=== PATIENT | male | born 1960 | race Caucasian/White ===

== ENCOUNTER 2017-02-20 15:04 | Inpatient (IN) | payer OTHER ==
[~2017-02-20] VITALS: Ht 185.4 cm; Wt 91.2 kg
--- NOTE | 2017-02-20 00:30 | NUR ---
Continue to monitor patient, and blood pressure with no improvement. Patient remains asymptomatic alert and awake with no further complaints of pain, earlier medicated pt with small dose of dilaudid 0.5mg IVP for left shoulder pain 08/14 and rec'd 25% albumin 100ml IV , Vancomycin 1GM and Meropenem IVP with BP sustaining no higher than 79/40. Called [facility] and spoke with Dr. Harper. Orders rec'd and carried out. Bolus of NS 500ml if no improvement with blood pressure transfer pt to ICU.
[2017-02-20] MEDS ORDERED: RIFA550T PO (15:23)
[2017-02-20] MEDS ORDERED: LACT10SO7 PO (15:23)
[2017-02-20] MEDS ORDERED: FLUT1DIS28 IH (15:23)
[2017-02-20] MEDS ORDERED: SPIR100T3 PO (15:23)
--- NOTE | 2017-02-20 15:51 | NUR ---
dr boston at the bedside for eval and exam.
[2017-02-20] MEDS ORDERED: IV NORMAL SALINE 500 ML BAG IV ONE (16:00)
[2017-02-20 16:20] LABS: BASOPHILS % (AUTO) 0.4 % (0.0-2.0); EOSINOPHILS # (AUTO) 0.4 K/uL (0.0-0.7); EOSINOPHILS % (AUTO) 3.2 % (0.0-7.0); HEMATOCRIT 30.1 % (40-50); HEMOGLOBIN 10.3 G/DL (14.0-18.0); LYMPHOCYTES # (AUTO) 0.6 K/UL (0.8-4.8); LYMPHOCYTES % (AUTO) 5.2 % (20.5-51.5); MEAN CORPUSCULAR HGB CONC 34 g/dL (32.0-37.0); MEAN CORPUSCULAR VOLUME 91.1 FL (82.0-92.0); MONOCYTES % (AUTO) 8.8 % (0.0-11.0); NEUTROPHILS # (AUTO) 9.5 K/UL (1.8-8.9); NEUTROPHILS % (AUTO) 82.4 % (38.5-71.5); PLATELET COUNT (AUTO) 122 K/UL (150-450); RED BLOOD CELL COUNT(AUTO) 3.31 MIL/UL (4.7-6.1); WHITE BLOOD COUNT (AUTO) 11.5 K/UL (4.0-11.2)
[2017-02-20 16:27] LABS: BILIRUBIN,DIRECT 0.6 mg/dL (0.0-0.2); BILIRUBIN,TOTAL 1.2 mg/dL (0.2-1.0); POTASSIUM 4.3 mmol/L (3.5-5.1); TOTAL PROTEIN, SERUM 5.5 g/dL (6.4-8.2)
[2017-02-20 16:35] LABS: CREATININE 8.4 mg/dL (0.6-1.3)
[2017-02-20 16:49] LABS: BAND % (MANUAL) 6 % (0-10); EOSINOPHILS % (MANUAL) 2 % (0-8); LYMPHOCYTES % (MANUAL) 7 % (20-40); MONOCYTES % (MANUAL) 11 % (2-10); NEUTROPHILS % (MANUAL) 74 % (42-75)
--- NOTE | 2017-02-20 17:02 | NUR ---
MSE COMPLETED, Admit order written , mrsa nares ordered-sent. sbar report to bianca seaman. pt sent to rm [id number] via [employer].
[2017-02-20 17:03] VITALS: BP 104/54
--- NOTE | 2017-02-20 17:30 | NUR ---
57 YEAR OLD MALE ADMITTED TO ROOM 219 FOR ABDOMINAL PAIN AND SOB ASCITES RENAL FAILURE.PT IS AXOX4.CALL LIGHT WITH IN REACH,ORIENT THE PT TO ROOM AND SURROUNDINGS,MD CALLED FOR ADMISSION ORDERS.,
--- NOTE | 2017-02-20 19:00 | NUR ---
Red'd patient from nurse CONSTANTINO Tucker, Alert and Oriented x 4 in no acute distress. At [address] Wade of patient low BP 79/40 hr 115 tachy RR 18 room air saturation 93% and low grade temp. 99.5. Orders rec'd and carried out and patient monitored closely.
[2017-02-20] MEDS ORDERED: HYDROMORPHONE 1 MG/1 ML DISP.SYRIN IV PRN (19:15)
[2017-02-20 20:11] VITALS: BP 79/40
[2017-02-20] MEDS ORDERED: ALBUMIN HUMAN 25% 100 ML IV ONE (20:15)
[2017-02-20] MEDS ORDERED: VANCOMYCIN IV 1 G in PREMIXED 0 EACH IV ONE (20:30)
[2017-02-20] MEDS ORDERED: FLUTICASONE/SALMETEROL 250/50 INHALER IH SCH (21:00)
[2017-02-20] MEDS: IV NS 1000 ML 1,000 ML IV PRN (21:13)
--- NOTE | 2017-02-20 21:23 | NUR ---
PHARMACY CLINICAL NOTES ( VANCOMYCIN DOSING0 S: 57 YO MALE ; ADMITTED FOR SOB AND ABDOMINAL PAIN. ON EMPIRIC TREATMENT WITH MERREM AND VANCOMYCIN. HE IS ON DIALYSIS O: BUN/SCR 54/8.4, WBC 11.5; TEMP 99.5 A/P: PER PROTOCOL WILL ADMINISTER ONE DOSE OF 1000 MG TONIGHT AND WILL DOSE IN THE FUTURE BASE ON PRE-DIALYSIS LEVEL. WILL CONTINUE TO MONITOR
[2017-02-20] MEDS: HYDROMORPHONE 2 MG/1 ML DISP.SYRIN IV PRN (21:26)
[2017-02-20] MEDS: ONDANSETRON 4 MG/2 ML VIAL IV PRN (21:34)
[2017-02-20] MEDS: MEROPENEM 250 MG in IV NORMAL SALINE 50 ML IV SCH (21:55)
[2017-02-21] VITALS (78 sets, daily range): BP systolic 68–127; BP diastolic 32–78
[2017-02-21] MEDS: ACETAMINOPHEN 325 MG TABLET PO PRN ×2 (00:48→12:11)
--- NOTE | 2017-02-21 02:30 | NUR ---
Patient rec'd normal saline 500 ml bolus with no change in SBP , 72/41 on tele monitor with HR 99-100 SPO2 on 2l/min of oxygen 95%, no resp distress noted, prior SBP 73/37 HR 99 and SPO2 91% on room air, placed pt on oxygen nasal cannula, pt noted resting well, alert and awake, stated Im so comfortable , denies any SOB, difficulty breathing , chest pain or any discomfort. Ascites noted abd very distended and semi-firm with active bowel sounds, denies nausea or vomiting at this time. Patient to be transferred to ICU or MAHAMED per Dr. Vicente to stabilize blood pressure.
[2017-02-21] MEDS ORDERED: IV NORMAL SALINE 500 ML IV ONE (03:30)
--- NOTE | 2017-02-21 03:35 | NUR ---
Patient transferred to ICU via bed Accompanied by Charge nurse Elvia, Report given to UNIX CONSULTANT.
--- NOTE | 2017-02-21 04:00 | NUR ---
received patient from the floor c/o low bp for Levophed drip to start . patient aaox4. symptomatic and no signs and symptoms of respiratory distress . abdomen very distended and soft positive for ascites .ESRD on HD .right subclavian Omari catheter hemodialysis access clean dry and intact . as per patient he is anuric.photo taken for right hip ,sacral area skin pressure see photo and right elbow dry scab.call [facility] and oriented patient to icu equipment and set up. no pain verbalized and no active bleeding noted .
[2017-02-21] MEDS ORDERED: NOREPINEPHRINE BITARTRATE 4 MG/4 ML VIAL IV ONE ×2 (05:19→05:20)
[2017-02-21] MEDS: PANTOPRAZOLE SODIUM 40 MG TABLET.DR PO SCH (06:40)
[2017-02-21 06:43] LABS: BILIRUBIN,TOTAL 1.3 mg/dL (0.2-1.0); MAGNESIUM 2.2 mg/dL (1.8-2.4); POTASSIUM 4.3 mmol/L (3.5-5.1); TOTAL PROTEIN, SERUM 4.9 g/dL (6.4-8.2)
[2017-02-21 06:47] LABS: CREATININE 8.4 mg/dL (0.6-1.3)
[2017-02-21 07:00] LABS: BASOPHILS # (AUTO) 0.1 K/uL (0.0-8.0); BASOPHILS % (AUTO) 1.5 % (0.0-2.0); EOSINOPHILS # (AUTO) 0.2 K/uL (0.0-0.7); EOSINOPHILS % (AUTO) 2.8 % (0.0-7.0); HEMATOCRIT 25.5 % (36.7-47.1); HEMOGLOBIN 8.9 g/dL (12.5-16.3); MEAN CORPUSCULAR HEMOGLOBIN 31.6 uug (23.8-33.4); MEAN CORPUSCULAR HGB CONC 35 g/dL (32.5-36.3); MONOCYTES # (AUTO) 1.2 K/uL (2.0-10.0); MONOCYTES % (AUTO) 18.7 % (0.0-11.0); NEUTROPHILS # (AUTO) 3.9 K/uL (1.8-8.9); PLATELET COUNT (AUTO) 89 K/uL (152-348)
[2017-02-21 07:03] LABS: THYROID STIMULATING HORMONE 2.284 mIU/mL (0.358-3.740)
[2017-02-21 07:18] LABS: WHITE BLOOD COUNT (AUTO) 6.4 K/uL (3.6-10.2)
--- NOTE | 2017-02-21 07:30 | NUR ---
RECIEVED PT LYING IN BED, HOB UP AT 35DEGREES. COLOR IS PALE AND JAUNDICED, VERY PLEASANT, ORIENTEDX3. ABDOMEN IS VERY DISTENDED AND PT C/O OF DISCOMFORTS OVER THE TIGHTNESS OF HIS ABDOMEN. BOWEL SOUND IS HYPOACTIVE. NO C/O N/V NOTED.
[2017-02-21] MEDS: IV NS 1000 ML 1,000 ML IV PRN (07:33)
--- NOTE | 2017-02-21 08:30 | NUR ---
PT ON LEVOPHED DRIP AT 10MCG/KG/MIN INFUSING WELL ON HIS LEFT FA G20. SEEN AND EXAMINED BY DR MEJIA WITH NEW MARÍA ELENA. FLORINDA FOR INSERTION OF PICC LINE. CONSENT OBTAINED FROM PT.
[2017-02-21 08:58] LABS: BAND % (MANUAL) 2 % (0-10); BASOPHILS % (MANUAL) 2 % (0-2); EOSINOPHILS % (MANUAL) 1 % (0-8); LYMPHOCYTES % (MANUAL) 15 % (20-40); MONOCYTES % (MANUAL) 12 % (2-10); NEUTROPHILS % (MANUAL) 68 % (42-75)
[2017-02-21] MEDS ORDERED: SPIRONOLACTONE 100 MG TABLET PO SCH (09:00)
[2017-02-21] MEDS ORDERED: EPOETIN ALFA 10,000 UNITS/ML VIAL SQ ONE (09:30)
--- NOTE | 2017-02-21 10:00 | NUR ---
PT IS ANURIC. CHRONIC HEMODIALYSIS, SUBCLAVIAN VAS VCASTH ON RIGHT UPPER CHEST IS CLEAN AND INTACT.
[2017-02-21] MEDS: FLUTICASONE/VILANTEROL 1 EACH BLST.W.DEV INH SCH (10:07)
[2017-02-21] MEDS: LACTULOSE 20 G/30 ML LIQUID UDC PO SCH ×3 (10:07→18:03)
[2017-02-21] MEDS: MEROPENEM 250 MG in IV NORMAL SALINE 50 ML IV SCH ×2 (10:09→21:33)
[2017-02-21] MEDS: RIFAXIMIN 550 MG TABLET PO SCH ×2 (10:09→18:03)
--- NOTE | 2017-02-21 10:30 | NUR ---
PT SBP IS LABILE. INCREASED LEVOPHED DRIP UP TO 12MCG/KG/MIN.
--- NOTE | 2017-02-21 11:00 | NUR ---
PT ALSO SIGNED CONSENT FOR US GUIDED PARACENTHESIS.
--- NOTE | 2017-02-21 11:20 | NUR ---
PICC LINE INSERTED ON THE LEFT UPPER ARM BY PICC LINE NURSE AT THE BEDSIDE.
--- NOTE | 2017-02-21 11:45 | NUR ---
PT WAS MOVED TO CCU 1 FOR HEMODIALYSIS CONVINIENCE ACCESS. FIRST STEP MATTRESS APPLIED FOR SKIN PROTECTION, AND DVT PUMP ON BOTH LEGS ORDERED.
--- NOTE | 2017-02-21 14:00 | NUR ---
HEMODIALYSIS STARTED AT BEDSIDE. PT TOLERATING WELL. ATE LIGHT LUNCH.
--- NOTE | 2017-02-21 15:30 | NUR ---
TOTAL FLUID OUT IS 2LITERS. NO APPARENT DISTRESS NOTED.
--- NOTE | 2017-02-21 16:00 | NUR ---
US GUIDED PARACENTHESIS IN THE ROOM PERFORMED BY DR COTTON, RADIOLOGIST. TOTAL FLUID DRAIN IS 10LITERS. PT TOLERATED GOOD, NO APPARENT DISTRESS NOTED. ONE BOTTLE SENT TO LAB FOR FLUID CULTURE&SENSITIVITY WITH GRAM STAIN ORDER. THE REST OF BOTTLES DISPOSED ON BIOHAZARD TRASH. PT IS SLEEPING AND FEELING SO COLD AND TIRED.
--- NOTE | 2017-02-21 16:32 | NUR ---
PHARMACY CLINICAL NOTES ( VANCOMYCIN DOSING0 S: 57 YO MALE ; ADMITTED FOR SOB AND ABDOMINAL PAIN. ON EMPIRIC TREATMENT WITH MERREM AND VANCOMYCIN. HE IS ON DIALYSIS O: BUN/SCR 56/8.4, WBC 6.4; TEMP 98.4 pre-HD level: 17.1 today am labs A/P: Per protocol, will dose another 1gm vanco tonight after HD (HD not done yet) based on pre-HD level. Will continue to dose per pre-HD level on HD days. Will follow Addendum: 02/21/17 at 1703 by ANIRUDH FELTON ADM HD DONE, DOSING VANCO 1GM AT 1800. WILL FOLLOW Addendum: 02/21/17 at 1707 by ANIRUDH FELTON ADM ERROR, DISREGARD PREVIOUS, WILL DOSE 500MG X 1 VANCO DUE FOR 1900 TODAY. WILL FOLLOW
[2017-02-21] MEDS: HYDROCODONE/APAP 5-325MG TABLET PO PRN (16:38)
[2017-02-21] MEDS: NOREPINEPHRINE BITARTRATE 8 MG in IV DEXTROSE 5% 500 ML IV PRN ×2 (16:38→23:33)
[2017-02-21] MEDS ORDERED: VANCOMYCIN IV 1 G in PREMIXED 0 EACH IV ONE (18:00)
--- NOTE | 2017-02-21 18:30 | NUR ---
EATING DINNER WELL AND INDEPENDENTLY.
[2017-02-21] MEDS ORDERED: VANCOMYCIN IV 500 MG in IV DEXTROSE 5% 100 ML IV ONE (19:00)
--- NOTE | 2017-02-21 19:30 | NUR ---
rounds made patient AAOX4/MAEX4 slow and weak.denies pain when asked .abdomen area still distended but slow .s/p paracentesis no signs and symptom of bleeding. breathing even and unlabored .hob up . Addendum: 02/21/17 at 2139 by ABBI TYSON RN Amended: Links added. Addendum: 02/21/17 at 2140 by ABBI TYSON RN Amended: Links added.
--- NOTE | 2017-02-21 20:00 | NUR ---
received patient on norepinephrine at 18 mcg/min ,to keep sbp >90 mm/hg .continue to monitor vital signs q15 minutes . Addendum: 02/21/17 at 2136 by ABBI TYSON RN Amended: Links added.
--- NOTE | 2017-02-21 22:00 | NUR ---
no new skin breakdown noted sacral area and left hip decubitus with Mepilex dressing clean dry and intact .patient had x1 bowel movement soft moderate in amt pm care done changed soiled linens and gown . z guard applied to sacral area and bilateral groin .patient able to turned and reposition self . Addendum: 02/22/17 at 0124 by ABBI TYSON RN Amended: Links added. Addendum: 02/22/17 at 0126 by ABBI TYSON RN Amended: Links added. Addendum: 02/22/17 at 0203 by ABBI TYSON RN Amended: Links added.
--- NOTE | 2017-02-21 22:30 | NUR ---
patient asked for apple sauce and apple juice able to feed self .hob up ,aspiration precaution observed. Addendum: 02/22/17 at 0126 by ABBI TYSON RN Amended: Links added. Addendum: 02/22/17 at 0203 by ABBI TYSON RN Amended: Links added.
[2017-02-22] VITALS (96 sets, daily range): BP systolic 71–115; BP diastolic 39–72
--- NOTE | 2017-02-22 | NUR ---
no active bleeding noted h/h 8.9/25.5 platelet 89.continue to monitor . Addendum: 02/22/17 at 0203 by ABBI TYSON RN Amended: Links added.
[2017-02-22] MEDS: NOREPINEPHRINE BITARTRATE 8 MG in IV DEXTROSE 5% 500 ML IV PRN ×3 (05:10→18:46)
[2017-02-22 06:07] LABS: BASOPHILS # (AUTO) 0.1 K/uL (0.0-8.0); BASOPHILS % (AUTO) 0.6 % (0.0-2.0); BILIRUBIN,TOTAL 1.1 mg/dL (0.2-1.0); CREATININE 6.7 mg/dL (0.6-1.3); EOSINOPHILS # (AUTO) 0.1 K/uL (0.0-0.7); EOSINOPHILS % (AUTO) 1.1 % (0.0-7.0); HEMATOCRIT 33.2 % (40-50); HEMOGLOBIN 10.9 G/DL (14.0-18.0); LYMPHOCYTES % (AUTO) 8.5 % (20.5-51.5); MAGNESIUM 2.1 mg/dL (1.8-2.4); MEAN CORPUSCULAR HEMOGLOBIN 30.2 UUG (27.0-31.0); MEAN CORPUSCULAR HGB CONC 33 g/dL (32.0-37.0); MEAN CORPUSCULAR VOLUME 91.9 FL (82.0-92.0); MONOCYTES # (AUTO) 1.7 K/UL (0.1-1.30); MONOCYTES % (AUTO) 13.9 % (0.0-11.0); NEUTROPHILS # (AUTO) 9.4 K/UL (1.8-8.9); NEUTROPHILS % (AUTO) 75.9 % (38.5-71.5); PHOSPHOROUS 5.7 mg/dL (2.5-4.9); PLATELET COUNT (AUTO) 93 K/UL (150-450); RED BLOOD CELL COUNT(AUTO) 3.61 MIL/UL (4.7-6.1); TOTAL PROTEIN, SERUM 5.7 g/dL (6.4-8.2); WHITE BLOOD COUNT (AUTO) 12.3 K/UL (4.0-11.2)
[2017-02-22] MEDS: PANTOPRAZOLE SODIUM 40 MG TABLET.DR PO SCH (06:36)
--- NOTE | 2017-02-22 07:30 | NUR ---
Pt.in bed A/A/O,watching TV,no s/s of acute distress,denies pain @ time.
[2017-02-22] MEDS: LACTULOSE 20 G/30 ML LIQUID UDC PO SCH ×3 (08:11→17:04)
[2017-02-22] MEDS: RIFAXIMIN 550 MG TABLET PO SCH ×2 (08:11→17:04)
[2017-02-22] MEDS: FLUTICASONE/VILANTEROL 1 EACH BLST.W.DEV INH SCH (08:11)
[2017-02-22] MEDS: MEROPENEM 250 MG in IV NORMAL SALINE 50 ML IV SCH ×2 (08:11→21:05)
[2017-02-22 09:48] LABS: BAND % (MANUAL) 13 % (0-10); BASOPHILS % (MANUAL) 1 % (0-2); LYMPHOCYTES % (MANUAL) 11 % (20-40); MONOCYTES % (MANUAL) 12 % (2-10); NEUTROPHILS % (MANUAL) 63 % (42-75)
--- NOTE | 2017-02-22 11:23 | NUR ---
Pt.sleeping,no s/s of distress.
--- NOTE | 2017-02-22 12:55 | NUR ---
Pt.was seen by .
[2017-02-22] MEDS: HYDROCODONE/APAP 5-325MG TABLET PO PRN (13:37)
--- NOTE | 2017-02-22 14:48 | NUR ---
PHARMACY CLINICAL NOTES ( VANCOMYCIN DOSING0 S: 57 YO MALE ; ADMITTED FOR SOB AND ABDOMINAL PAIN. ON EMPIRIC TREATMENT WITH MERREM AND VANCOMYCIN. HE IS ON DIALYSIS O: BUN/SCR 44/6.7, WBC 6.7; TEMP 99.2 A/P: Per protocol, No Hd today therefore no dose shall be given. Last dose given 02/21 @ 1900. Will follow Hd scheduling for further dosing. Will monitor
[2017-02-22] MEDS ORDERED: Z GUARD REMEDY PASTE 57 GM TUBE TOP PRN (15:00)
[2017-02-22] MEDS: Z GUARD REMEDY PASTE 57 GM TUBE TOP SCH (21:06)
[2017-02-23] VITALS (73 sets, daily range): BP systolic 86–143; BP diastolic 35–81
[2017-02-23] MEDS: NOREPINEPHRINE BITARTRATE 8 MG in IV DEXTROSE 5% 500 ML IV PRN ×3 (00:55→13:57)
[2017-02-23] MEDS: ZOLPIDEM 5 MG TABLET PO PRN ×2 (02:00→22:38)
[2017-02-23 05:52] LABS: BASOPHILS # (AUTO) 0.1 K/uL (0.0-8.0); BASOPHILS % (AUTO) 1.3 % (0.0-2.0); EOSINOPHILS # (AUTO) 0.6 K/uL (0.0-0.7); EOSINOPHILS % (AUTO) 5.7 % (0.0-7.0); HEMATOCRIT 33.7 % (40-50); HEMOGLOBIN 11.2 G/DL (14.0-18.0); LYMPHOCYTES # (AUTO) 1.2 K/UL (0.8-4.8); LYMPHOCYTES % (AUTO) 12.2 % (20.5-51.5); MEAN CORPUSCULAR HEMOGLOBIN 30.6 UUG (27.0-31.0); MEAN CORPUSCULAR HGB CONC 33 g/dL (32.0-37.0); MEAN CORPUSCULAR VOLUME 92.2 FL (82.0-92.0); MONOCYTES # (AUTO) 1.5 K/UL (0.1-1.30); MONOCYTES % (AUTO) 14.9 % (0.0-11.0); NEUTROPHILS # (AUTO) 6.5 K/UL (1.8-8.9); NEUTROPHILS % (AUTO) 65.9 % (38.5-71.5); PLATELET COUNT (AUTO) 117 K/UL (150-450); RED BLOOD CELL COUNT(AUTO) 3.66 MIL/UL (4.7-6.1); WHITE BLOOD COUNT (AUTO) 9.9 K/UL (4.0-11.2)
[2017-02-23] MEDS: IV NORMAL SALINE 250 ML IV PRN (06:10)
[2017-02-23 06:28] LABS: CREATININE 7.3 mg/dL (0.6-1.3); MAGNESIUM 2.1 mg/dL (1.8-2.4); PHOSPHOROUS 5.9 mg/dL (2.5-4.9); POTASSIUM 3.7 mmol/L (3.5-5.1)
[2017-02-23] MEDS: PANTOPRAZOLE SODIUM 40 MG TABLET.DR PO SCH (07:00)
[2017-02-23] MEDS: LACTULOSE 20 G/30 ML LIQUID UDC PO SCH ×3 (08:52→16:00)
--- NOTE | 2017-02-23 08:55 | NUR ---
TIFFANIE gannon held this am. Pt on dialysis and potassium/ammonia levels wnl. Addendum: 02/23/17 at 0922 by BASIL TINAJERO RN Pt with no complaints of constipation and bm wnl.
[2017-02-23] MEDS: FOLIC ACID/VITAMIN B COMP W-C TABLET PO SCH (09:01)
[2017-02-23] MEDS: RIFAXIMIN 550 MG TABLET PO SCH ×2 (09:01→16:10)
[2017-02-23] MEDS: MEROPENEM 250 MG in IV NORMAL SALINE 50 ML IV SCH ×2 (09:02→20:51)
[2017-02-23] MEDS: Z GUARD REMEDY PASTE 57 GM TUBE TOP SCH ×2 (09:02→20:52)
[2017-02-23] MEDS: FLUTICASONE/VILANTEROL 1 EACH BLST.W.DEV INH SCH (09:02)
--- NOTE | 2017-02-23 09:50 | NUR ---
Hemodialysis treatment complete. 1.5L of hemodialysis fluid removed. Pt stable and nad noted. VSS wnl.
[2017-02-23] MEDS: HYDROCODONE/APAP 5-325MG TABLET PO PRN (11:01)
[2017-02-23] MEDS ORDERED: VANCOMYCIN IV 1 G in PREMIXED 0 EACH IV ONE (12:00)
[2017-02-23 12:06] LABS: BAND % (MANUAL) 5 % (0-10); EOSINOPHILS % (MANUAL) 2 % (0-8); LYMPHOCYTES % (MANUAL) 12 % (20-40); METAMYELOCYTES % 1 % (0-1); MONOCYTES % (MANUAL) 14 % (2-10); NEUTROPHILS % (MANUAL) 66 % (42-75)
--- NOTE | 2017-02-23 12:11 | NUR ---
PHARMACY CLINICAL NOTES ( VANCOMYCIN DOSING0 S: Continue vanco for this 57 yo male dialysis patient for Sepsis with fevers, leukocytosis, bandemia, O: BUN/SCR 49/7.3 WBC 9.9; TEMP 98.6 Vanco pre-HD level: 13.9 (with am labs) A/P: Per protocol, HD has been scheduled for today. Since vanco pre-HD level is 13.9 (below 15 mcg/ml) ,as per protocol, will give vanco 1gm IVPB x1 today post HD. Will follow HD scheduling for further dosing. Will monitor
--- NOTE | 2017-02-23 19:04 | NUR ---
End of shift: Pt resting and dozing off in bed with fall precautions and safety measures maintained. nuclear monitoring technician and alarms working properly wnl. IV Levophed infusing as ordered. Pt stable and nad noted.
[2017-02-23] MEDS: HYDROMORPHONE 2 MG/1 ML DISP.SYRIN IV PRN (19:11)
--- NOTE | 2017-02-23 19:30 | NUR ---
Report received. Patient AAO, able to make needs known. On continuous Levophed drip for BP support. Afebrile. Abdomen markedly distended, soft with hypoactive bowel sounds. With mild pain on palpation. Patient encouraged to turn to side. Cooperative. Was medicated with Dilaudid IV for abdominal/inguinal pain at 1911. Assessment completed. Addendum: 02/24/17 at 0029 by MAURICIO MCKEON RN Amended: Links added.
--- NOTE | 2017-02-23 20:00 | NUR ---
Levophed drip titrated down. Continue to monitor BPs closely. Addendum: 02/24/17 at 0031 by MAURICIO MCKEON RN Amended: Links added.
[2017-02-23] MEDS: NOREPINEPHRINE BITARTRATE 16 MG in IV DEXTROSE 5% 500 ML IV PRN (20:46)
--- NOTE | 2017-02-23 20:46 | NUR ---
New bag of Levophed drip hung with Levophed 16 mg in D5 W 500ml. Infusion pump reprogrammed. Patient awake, watching TV. Addendum: 02/24/17 at 0035 by MAURICIO MCKEON RN Amended: Links added.
--- NOTE | 2017-02-23 22:30 | NUR ---
Requesting for Jell-o; ate well without n/v. Also requesting for sleeping pill; Teodora given. Addendum: 02/24/17 at 0038 by MAURICIO MCKEON RN Amended: Links added.
[2017-02-24] VITALS (96 sets, daily range): BP systolic 71–124; BP diastolic 30–76
--- NOTE | 2017-02-24 01:15 | NUR ---
Sat on room air 86-89% while asleep. O2 2 L NC administered. Saturation improved. Addendum: 02/24/17 at 0141 by MAURICIO MCKEON RN Amended: Links added.
--- NOTE | 2017-02-24 04:45 | NUR ---
Patient awake; c/o abdominal pain and R inguinal area pain. Medicated with Dilaudid. Am care rendered. Patient cooperative. BPs monitored closely. Remains on Levophed drip for BP support.
[2017-02-24] MEDS: HYDROMORPHONE 2 MG/1 ML DISP.SYRIN IV PRN ×2 (04:49→11:28)
[2017-02-24 04:56] LABS: BASOPHILS # (AUTO) 0.2 K/uL (0.0-8.0); BASOPHILS % (AUTO) 1.8 % (0.0-2.0); EOSINOPHILS # (AUTO) 0.8 K/uL (0.0-0.7); EOSINOPHILS % (AUTO) 6.9 % (0.0-7.0); HEMATOCRIT 32.3 % (40-50); HEMOGLOBIN 10.6 G/DL (14.0-18.0); LYMPHOCYTES # (AUTO) 1.2 K/UL (0.8-4.8); LYMPHOCYTES % (AUTO) 10.7 % (20.5-51.5); MEAN CORPUSCULAR HEMOGLOBIN 29.9 UUG (27.0-31.0); MEAN CORPUSCULAR HGB CONC 33 g/dL (32.0-37.0); MEAN CORPUSCULAR VOLUME 91.4 FL (82.0-92.0); MONOCYTES # (AUTO) 1.9 K/UL (0.1-1.30); MONOCYTES % (AUTO) 17.2 % (0.0-11.0); NEUTROPHILS # (AUTO) 6.9 K/UL (1.8-8.9); NEUTROPHILS % (AUTO) 63.4 % (38.5-71.5); PLATELET COUNT (AUTO) 84 K/UL (150-450); RED BLOOD CELL COUNT(AUTO) 3.54 MIL/UL (4.7-6.1)
[2017-02-24 05:10] LABS: CREATININE 6.5 mg/dL (0.6-1.3); MAGNESIUM 1.8 mg/dL (1.8-2.4); PHOSPHOROUS 5.3 mg/dL (2.5-4.9); POTASSIUM 3.6 mmol/L (3.5-5.1)
[2017-02-24 05:38] LABS: BAND % (MANUAL) 1 % (0-10); EOSINOPHILS % (MANUAL) 8 % (0-8); LYMPHOCYTES % (MANUAL) 15 % (20-40); MONOCYTES % (MANUAL) 21 % (2-10); NEUTROPHILS % (MANUAL) 55 % (42-75)
--- NOTE | 2017-02-24 06:30 | NUR ---
Sleeping on and off after Dilaudid. Remains on Levophed drip at 12 mcg/min.
[2017-02-24] MEDS: IV NORMAL SALINE 250 ML IV PRN (06:39)
[2017-02-24] MEDS: PANTOPRAZOLE SODIUM 40 MG TABLET.DR PO SCH (06:39)
--- NOTE | 2017-02-24 07:00 | NUR ---
PATIENT IS LAYING IN BED COMFORTABLY. NO S/S OF RESPIRATORY DISTRESS NOTED. TOLERABLE PAIN IS REPORTED DUE TO "INGUINAL HERNIA". CURRENTLY, PT DOES NOT WANT PAIN MEDICATION. PT IS ON 2L NC. ALL SAFETY NEEDS ARE MET. WILL CONTINUE TO MONITOR.
[2017-02-24] MEDS: LACTULOSE 20 G/30 ML LIQUID UDC PO SCH ×4 (08:24→17:12)
[2017-02-24] MEDS: FLUTICASONE/VILANTEROL 1 EACH BLST.W.DEV INH SCH (08:24)
[2017-02-24] MEDS: FOLIC ACID/VITAMIN B COMP W-C TABLET PO SCH (08:24)
[2017-02-24] MEDS: MEROPENEM 250 MG in IV NORMAL SALINE 50 ML IV SCH ×2 (08:24→21:06)
[2017-02-24] MEDS: RIFAXIMIN 550 MG TABLET PO SCH ×2 (08:24→17:12)
[2017-02-24] MEDS: ACETAMINOPHEN 325 MG TABLET PO PRN ×2 (08:27→22:17)
[2017-02-24] MEDS: Z GUARD REMEDY PASTE 57 GM TUBE TOP SCH ×2 (08:50→21:05)
--- NOTE | 2017-02-24 10:46 | NUR ---
DR. AVILA IS HERE TO ASSESS THE PT, PT REPORT IS GIVEN TO THE DR. PER DR. AVILA "PT'S BASE LINE BLOOD PRESSURE IS IN 90'S" "LET'S TRY TO LOWER DOWN LEVOPHED TO 10MCG", ADVISED DR THAT ATTEMPETED TO LOWER DOWN LEVOPHED TO 11, AT WHICH POINT PT'S SBP BECAME IN 70'S. OK PER NEW V/O FROM DR. AVILA GIVE FLORINEF 0.1MG DAILY FIRST DOSE NOW. ORDER NOTED, CARRIED OUT. ADVISED DR ABOUT PT'S CONCERN ABOUT HIS INGUINAL HERNIA, OK PER
--- NOTE | 2017-02-24 10:55 | NUR ---
PER DR. AVILA V/O PUT PT, PTT
--- NOTE | 2017-02-24 11:20 | NUR ---
PER DR. AVILA V/O GIVE THE PT HIS DILAUDID, NOTIFIED OF THE PT'S BP, GIVE DILAUDID DOSE PER DR'S ORDER.
[2017-02-24] MEDS: FLUDROCORTISONE ACETATE 0.1 MG TABLET PO SCH (11:28)
--- NOTE | 2017-02-24 12:45 | NUR ---
PT REMOVED NC TO ETA, REFUSED TO PUT IT BACK ON, EDUCATION PROVIDED Addendum: 02/24/17 at 1625 by KISHORE WYLIE RN PT PUT THE NC IN 30 MIN AFTER EATING HIS LUNCH.
--- NOTE | 2017-02-24 13:37 | NUR ---
PATIENT SAID OK TO TAKE LACTULOSE, ONCE SCANNED AND OPENED PT SAID THAT HE DOESN'T WANT IT RIGHT NOW. WAISTED THE MEDICATION WITH ANOTHER NURSE.
--- NOTE | 2017-02-24 14:38 | NUR ---
PT REFUSING BED BATH, WILL ASK AGAIN, PER PT "I ALREADY HAD ONE TODAY, I'M GOOD". EDUCATION PROVIDED.
--- NOTE | 2017-02-24 15:13 | NUR ---
WOUND CARE NURSE CAME TO ASSESS THE PT, WOUND CARE IS DONE PER PROTOCOL. PT STILL REFUSES BED BATH.
--- NOTE | 2017-02-24 15:22 | NUR ---
WOUND CARE CONSULT: PT PRESENTS WITH SKIN TEAR TO RT ARM AND STAGE 2 ULCER TO LEFT HIP AREA, PRESENT ON ADMISSION. ALL SKIN PROTECTION AND WOUND RECOMMENDATIONS DISCUSSED WITH NURSING STAFF. PT NOTED TO HAVE VERY LARGE ABDOMEN. SACRAL AREA VERY BONY WITH SCARRING AND STAINING OF SKIN. WILL SEE PRN. DENIS IN AGREEMENT WITH PLAN OF CARE. Addendum: 02/24/17 at 1523 by EFE TERRELL RN Amended: Links added.
--- NOTE | 2017-02-24 15:33 | NUR ---
DR AVILA IS AWARE ABOUT THE PT HAS SINUS TACHYCARDIC SINCE AM 100 - 119'S. NO NEW ORDERS FROM DR. AVILA
--- NOTE | 2017-02-24 16:00 | NUR ---
DR KING IS HERE TO PERFORM PARACENTESIS. V/A WNL. PT IS NOTED TO BE SLIGHTLY TACHYCARDIC. PER DR. KING "WILL BE REMOVING A LOT OF FLUID, PATIENT PROBABLY NEEDS ALBUMIN". PAGED DR. AVILA FOR THE ORDER, OK PER DR AVILA
--- NOTE | 2017-02-24 16:30 | NUR ---
PARACENTHESIS IS DONE, 10L OUT. NO S/S OF BLEEDING NOTED, WILL CONTINUE TO MONITOR THE PT.
--- NOTE | 2017-02-24 16:41 | NUR ---
PHARMACY CLINICAL NOTES ( VANCOMYCIN DOSING0 S: Continue vanco for this 57 yo male dialysis patient for Sepsis with fevers, leukocytosis, bandemia, O: BUN/SCR 81/6.5 WBC 11.0; TEMP 98 A/P: Will continue to dose by pre-HD level. Since there is no HD today, no dose will be given today. Will follow HD scheduling for further dosing. Will monitor
[2017-02-24] MEDS ORDERED: ALBUMIN HUMAN 25% 100 ML IV ONE (17:00)
--- NOTE | 2017-02-24 18:03 | NUR ---
CENTRAL LINE DRESSING IS DONE WITH [employer] TECHNIQUE
[2017-02-24] MEDS: NOREPINEPHRINE BITARTRATE 16 MG in IV DEXTROSE 5% 500 ML IV PRN (18:16)
--- NOTE | 2017-02-24 19:00 | NUR ---
PT IS LAYING IN BED COMFORTABLY, PT IS HAVING BM. NO S/S OF RESPIRATORY DISTRESS NOTED. NO S/S OF BLEEDING NOTED. NO PAIN NOTED. IV INTACT/PATENT. PT IS ON 3L NC. ALL SAFETY NEEDS ARE MET. PT REPORT IS GIVEN.
--- NOTE | 2017-02-24 19:30 | NUR ---
Report received. Patient AAO, coughing non productively; O2 3L NC, sat above 94%. With minimal abdominal and inguinal pain during activity such as turning and repositioning. On continuous Levophed drip @ 15 mcg/min to keep SBP above 90. Patient claims he's tired and just want to sleep tonight. Assessment completed. Addendum: 02/24/17 at 2026 by MAURICIO MCKEON RN Amended: Links added.
--- NOTE | 2017-02-24 20:00 | NUR ---
Patient called. Had loose yellow stools. Cleaned; skin care provided. Turning side to side by himself. Addendum: 02/24/17 at 2104 by MAURICIO MCKEON RN Amended: Links added.
--- NOTE | 2017-02-24 20:45 | NUR ---
Patient more congested. Sat low 90's. HR trending higher. HOB elevated above 30 degrees at all times. Patient encouraged to cough up secretions. Yany BRAGA visited. Aware of patient's condition. Patient asking for more blankets. Temp rechecked=99.3. Patient advised appropriately. Addendum: 02/24/17 at 2136 by MAURICIO MCKEON RN Amended: Links added. Addendum: 02/24/17 at 2251 by MAURICIO MCKEON RN Amended: Links added.
--- NOTE | 2017-02-24 21:05 | NUR ---
Patient able to coughed up thick yellow greenish secretions. Specimen obtained.
--- NOTE | 2017-02-24 21:08 | NUR ---
Dose of Levaquin given po. Patient has no swallowing difficulty. Call placed to [facility]. Dr. Chappell chapter relations administrator. Addendum: 02/24/17 at 2251 by MAURICIO MCKEON RN Amended: Links added.
[2017-02-24] MEDS ORDERED: LEVOFLOXACIN 250 MG TABLET PO SCH (21:15)
--- NOTE | 2017-02-24 21:45 | NUR ---
Patient continues to cough up thick yellow greenish secretions. Dr. Chappell informed of patient's condition. Orders received.
[2017-02-24] MEDS ORDERED: LEVALBUTEROL HCL NEB 0.63 MG/3 ML NEBU NEB PRN (22:15)
[2017-02-24] MEDS: PHENYLEPHRINE IV 40 MG in IV DEXTROSE 5% 250 ML IV PRN (22:17)
--- NOTE | 2017-02-24 22:17 | NUR ---
Levophed drip dc'd. Neosynephrine drip started at 100 mcg/min as ordered. BPs monitored closely. Tylenol po given for mild fever and generalized discomfort. Patient repositioned. Addendum: 02/24/17 at 2257 by MAURICIO MCKEON RN Amended: Links added.
[2017-02-24] MEDS ORDERED: PHENYLEPHRINE 10 MG/1 ML VIAL ONE (22:20)
[2017-02-24] MEDS: GUAIFENESIN/DEXTROMETHORPHAN 5 ML UDC PO PRN (22:28)
--- NOTE | 2017-02-24 22:28 | NUR ---
Robitussin DM 10 ml po given for cough.
[2017-02-24] MEDS ORDERED: GUAIFENESIN/DEXTROMETHORPHAN 5 ML UDC ONE (22:43)
--- NOTE | 2017-02-24 23:00 | NUR ---
Neosynephrine drip titrated to keep SBP above 90. See IV spread sheet for rates and dosages.
[2017-02-24] MEDS ORDERED: LEVALBUTEROL HCL 1.25 MG/0.5 ML NEB ONE (23:29)
--- NOTE | 2017-02-24 23:45 | NUR ---
Had another large liquid BM. Patient had doses of Lactulose during the day. Skin care provided.
[2017-02-25] VITALS (93 sets, daily range): BP systolic 58–120; BP diastolic 29–65
--- NOTE | 2017-02-25 00:15 | NUR ---
Patient remains hypotensive; Neosynephrine drip @ 180 mcg/min. Had another large liquid orange red stools. Call placed to [employer]. Spoke to . Informed of patient's condition. Orders received. NS 500 ml bolus hung. Main IVF NS at 75 ml/H started. Addendum: 02/25/17 at 0106 by MAURICIO MCKEON RN Amended: Links added.
[2017-02-25] MEDS: IV NS 1000 ML 1,000 ML IV PRN ×2 (00:22→14:46)
[2017-02-25] MEDS ORDERED: IV NORMAL SALINE 500 ML IV ONE (00:30)
--- NOTE | 2017-02-25 01:00 | NUR ---
BPs in 90's with NS IV bolus.
[2017-02-25] MEDS ORDERED: PHENYLEPHRINE 10 MG/1 ML VIAL ONE ×2 (01:54→03:07)
[2017-02-25] MEDS: PHENYLEPHRINE IV 40 MG in IV DEXTROSE 5% 250 ML IV PRN ×3 (02:22→09:13)
[2017-02-25] MEDS: HYDROMORPHONE 2 MG/1 ML DISP.SYRIN IV PRN ×2 (04:48→20:29)
[2017-02-25 05:01] LABS: BASOPHILS % (AUTO) 0.3 % (0.0-2.0); EOSINOPHILS % (AUTO) 0.3 % (0.0-7.0); HEMATOCRIT 31.4 % (36.7-47.1); HEMOGLOBIN 10.7 g/dL (12.5-16.3); LYMPHOCYTES # (AUTO) 0.5 K/uL (20.0-40.0); LYMPHOCYTES % (AUTO) 4.8 % (20.5-51.5); MEAN CORPUSCULAR HEMOGLOBIN 30.6 uug (23.8-33.4); MEAN CORPUSCULAR HGB CONC 34 g/dL (32.5-36.3); MEAN CORPUSCULAR VOLUME 89.7 fL (73.0-96.2); MONOCYTES # (AUTO) 0.9 K/uL (2.0-10.0); MONOCYTES % (AUTO) 8.2 % (0.0-11.0); NEUTROPHILS % (AUTO) 86.4 % (38.5-71.5); PLATELET COUNT (AUTO) 81 K/uL (152-348); WHITE BLOOD COUNT (AUTO) 10.4 K/uL (3.6-10.2)
[2017-02-25 05:06] LABS: BILIRUBIN,TOTAL 1.2 mg/dL (0.2-1.0); CREATININE 7.2 mg/dL (0.6-1.3); MAGNESIUM 1.9 mg/dL (1.8-2.4); PHOSPHOROUS 5.1 mg/dL (2.5-4.9); POTASSIUM 3.3 mmol/L (3.5-5.1); TOTAL PROTEIN, SERUM 5.1 g/dL (6.4-8.2)
[2017-02-25 06:07] LABS: BAND % (MANUAL) 74 % (0-10); LYMPHOCYTES % (MANUAL) 2 % (20-40); METAMYELOCYTES % 1 % (0-1); MONOCYTES % (MANUAL) 6 % (2-10); NEUTROPHILS % (MANUAL) 15 % (42-75)
--- NOTE | 2017-02-25 06:20 | NUR ---
BPs stabilizing with Neosynephrine drip at 200 mcg/min and 500 ml NS IV bolus. Monitor SR rate 70's- 80's. Abdomen still markedly distended but soft. Had 6 BMs the entire shift; liquid yellow orange stools. Routine skin and wound care done. Medicated with Dilaudid 0.5 mg IV x 1 for generalized discomfort. Addendum: 02/25/17 at 0623 by MAURICIO MCKEON RN Amended: Links added.
[2017-02-25] MEDS: PANTOPRAZOLE SODIUM 40 MG TABLET.DR PO SCH (06:30)
[2017-02-25] MEDS: LACTULOSE 20 G/30 ML LIQUID UDC PO SCH ×4 (08:16→16:29)
[2017-02-25] MEDS: FOLIC ACID/VITAMIN B COMP W-C TABLET PO SCH (08:16)
[2017-02-25] MEDS: FLUDROCORTISONE ACETATE 0.1 MG TABLET PO SCH (08:17)
[2017-02-25] MEDS: FLUTICASONE/VILANTEROL 1 EACH BLST.W.DEV INH SCH (08:17)
[2017-02-25] MEDS: RIFAXIMIN 550 MG TABLET PO SCH ×2 (08:18→16:28)
[2017-02-25] MEDS: Z GUARD REMEDY PASTE 57 GM TUBE TOP SCH ×2 (08:19→20:30)
[2017-02-25] MEDS: MEROPENEM 250 MG in IV NORMAL SALINE 50 ML IV SCH ×2 (08:20→20:29)
--- NOTE | 2017-02-25 08:45 | NUR ---
Dr. Badillo in to examine patient; full report given no orders received.
--- NOTE | 2017-02-25 11:50 | NUR ---
Rink Rat in the unit. 1200 hemodialysis in progress.
[2017-02-25] MEDS: PHENYLEPHRINE IV 80 MG in IV DEXTROSE 5% 250 ML IV PRN ×3 (12:08→22:04)
--- NOTE | 2017-02-25 12:32 | NUR ---
PHARMACY CLINICAL NOTES ( VANCOMYCIN DOSING0 S: Continue vanco for this 57 yo male dialysis patient for Sepsis, PNA O: BUN/SCR 49/7.2 WBC 10.4; TEMP 97.6 Vanco pre-HD level: 18.4 (with am labs) A/P: Per protocol, HD has been scheduled for today. Since vanco pre-HD level is 18.4 (between 15-20 mcg/ml) ,as per protocol, will give vanco 500mg IVPB x1 today post HD. Will follow HD scheduling for further dosing. Will monitor
[2017-02-25] MEDS: ALBUMIN HUMAN 25% 100 ML IV PRN ×2 (12:39→12:41)
--- NOTE | 2017-02-25 13:00 | NUR ---
Hemodialysis in progress patient tolerating poorly a total of 2 doses of Albumin given see eMAR. and phenilephrine titrated as needed by procedure. See vital signs sheet.
--- NOTE | 2017-02-25 14:07 | NUR ---
Hemodialysis finished and reports of 2,000 out total obtained.
[2017-02-25] MEDS ORDERED: VANCOMYCIN IV 500 MG in IV DEXTROSE 5% 100 ML IV ONE (16:00)
--- NOTE | 2017-02-25 19:01 | NUR ---
Dell ID in the unit to examine patient; report given.
--- NOTE | 2017-02-25 19:30 | NUR ---
Report received. Patient called; up on the bedpan. Had a small liquid soft yellow stools. Skin care provided. Patient cooperative. On continuous Neosynephrine drip for BP support. BPs monitored closely. Addendum: 02/25/17 at 2224 by MAURICIO MCKEON RN Amended: Links added.
--- NOTE | 2017-02-25 20:15 | NUR ---
Dinner served; ate fairly well without n/v. Abdomen still markedly distended; soft with bowel sounds. Medicated with Dilaudid IV for pain. Addendum: 02/25/17 at 2232 by MAURICIO MCKEON RN Amended: Links added.
[2017-02-26] VITALS (94 sets, daily range): BP systolic 51–128; BP diastolic 23–61
[2017-02-26] MEDS: PHENYLEPHRINE IV 80 MG in IV DEXTROSE 5% 250 ML IV PRN ×5 (03:04→21:34)
--- NOTE | 2017-02-26 03:30 | NUR ---
BPs in the 's. Neosynephrine drip increased to 280 mcg/min. No neuro changes. Addendum: 02/26/17 at 0711 by MAURICIO MCKEON RN Amended: Links added.
[2017-02-26] MEDS: IV NS 1000 ML 1,000 ML IV PRN ×2 (04:39→17:54)
[2017-02-26 04:57] LABS: BASOPHILS # (AUTO) 0.3 K/uL (0.0-8.0); BASOPHILS % (AUTO) 3.6 % (0.0-2.0); EOSINOPHILS # (AUTO) 0.7 K/uL (0.0-0.7); EOSINOPHILS % (AUTO) 7.1 % (0.0-7.0); HEMATOCRIT 32.5 % (40-50); HEMOGLOBIN 10.7 G/DL (14.0-18.0); LYMPHOCYTES # (AUTO) 1.6 K/UL (0.8-4.8); LYMPHOCYTES % (AUTO) 16.1 % (20.5-51.5); MEAN CORPUSCULAR HEMOGLOBIN 29.7 UUG (27.0-31.0); MEAN CORPUSCULAR HGB CONC 33 g/dL (32.0-37.0); MEAN CORPUSCULAR VOLUME 89.9 FL (82.0-92.0); MONOCYTES # (AUTO) 2.3 K/UL (0.1-1.30); MONOCYTES % (AUTO) 23.9 % (0.0-11.0); NEUTROPHILS # (AUTO) 4.8 K/UL (1.8-8.9); NEUTROPHILS % (AUTO) 49.3 % (38.5-71.5); PLATELET COUNT (AUTO) 100 K/UL (150-450); RED BLOOD CELL COUNT(AUTO) 3.61 MIL/UL (4.7-6.1); WHITE BLOOD COUNT (AUTO) 9.7 K/UL (4.0-11.2)
[2017-02-26 04:59] LABS: MAGNESIUM 1.8 mg/dL (1.8-2.4); PHOSPHOROUS 4.7 mg/dL (2.5-4.9); POTASSIUM 3.1 mmol/L (3.5-5.1)
[2017-02-26] MEDS: HYDROMORPHONE 2 MG/1 ML DISP.SYRIN IV PRN ×4 (05:30→21:19)
[2017-02-26 05:39] LABS: BAND % (MANUAL) 42 % (0-10); EOSINOPHILS % (MANUAL) 7 % (0-8); LYMPHOCYTES % (MANUAL) 9 % (20-40); METAMYELOCYTES % 6 % (0-1); MONOCYTES % (MANUAL) 6 % (2-10); MYELOCYTES % 6 % (0-0); NEUTROPHILS % (MANUAL) 18 % (42-75); PROMYELOCYTES % 3 %
[2017-02-26] MEDS: PANTOPRAZOLE SODIUM 40 MG TABLET.DR PO SCH (06:25)
--- NOTE | 2017-02-26 06:30 | NUR ---
AAO. Remains on Neosynephrine drip at 280 mcg/min; BPs still labile. Had 1 BM the entire shift. Addendum: 02/26/17 at 0720 by MAURICIO MCKEON RN Amended: Links added.
[2017-02-26] MEDS: LACTULOSE 20 G/30 ML LIQUID UDC PO SCH ×4 (08:17→16:31)
[2017-02-26] MEDS: FOLIC ACID/VITAMIN B COMP W-C TABLET PO SCH (08:17)
[2017-02-26] MEDS: FLUDROCORTISONE ACETATE 0.1 MG TABLET PO SCH (08:18)
[2017-02-26] MEDS: FLUTICASONE/VILANTEROL 1 EACH BLST.W.DEV INH SCH (08:18)
[2017-02-26] MEDS: RIFAXIMIN 550 MG TABLET PO SCH ×2 (08:19→16:33)
[2017-02-26] MEDS: MEROPENEM 250 MG in IV NORMAL SALINE 50 ML IV SCH ×2 (08:19→21:10)
[2017-02-26] MEDS: Z GUARD REMEDY PASTE 57 GM TUBE TOP SCH ×2 (08:20→21:20)
--- NOTE | 2017-02-26 11:48 | NUR ---
aviation mechanic in the unit, Patient refusing procedure stating "I'm feeling too dizzy I'll skip today".
[2017-02-26] MEDS: NOREPINEPHRINE BITARTRATE 16 MG in IV DEXTROSE 5% 500 ML IV PRN (12:20)
--- NOTE | 2017-02-26 14:11 | NUR ---
PHARMACY CLINICAL NOTES ( VANCOMYCIN DOSING S: Continue vanco for this 57 yo male dialysis patient for Sepsis, PNA O: BUN/SCR 44/6 WBC 9.7; TEMP 98.5 A/P: HD was scheduled for riana however, pt refused HD today therefore did not receive HD. No dose for today, last dose was given yesterday at 1600: vanco 500mg IVPB x1. Will follow HD scheduling for further dosing. Will monitor
--- NOTE | 2017-02-26 19:13 | NUR ---
Dr. Wade in to examine patient report given no orders received.
--- NOTE | 2017-02-26 19:16 | NUR ---
Dr. Wade informed of low blood pressure and neosynephrine been max out. orders to start levophed received.
--- NOTE | 2017-02-26 19:20 | NUR ---
Discussed US order with MARIA LUZ Painting. Patient unstable at this time to transfer to radiology. OK to postponed US until patient is more stable
--- NOTE | 2017-02-26 20:00 | NUR ---
A/Ox4. Patient is resting in bed. NSR on monitor. Labile BP. Neosynephrine at 280 mcg/min to SUMIT PICC line, will titrate as appropriate. IVF as ordered. 3L O2 via NC with SpO2 and RR WNL. Non-productive cough. Noted severe abdominal distention. Patient c/o abdominal pain, however tolerable at this time. Will administer PRN medications as appropriate. SBAR report received from Olamide Flor RN. Will continue plan of care.
[2017-02-26] MEDS: LACTOSE-FREE FOOD 237 ML LIQUID PO SCH (20:04)
[2017-02-26] MEDS ORDERED: LEVOFLOXACIN 250 MG TABLET PO SCH (21:00)
[2017-02-26] MEDS: GUAIFENESIN/DEXTROMETHORPHAN 5 ML UDC PO PRN (23:43)
[2017-02-27] VITALS (72 sets, daily range): BP systolic 62–122; BP diastolic 30–72
[2017-02-27] MEDS: PHENYLEPHRINE IV 80 MG in IV DEXTROSE 5% 250 ML IV PRN ×5 (02:01→20:36)
[2017-02-27] MEDS: HYDROMORPHONE 2 MG/1 ML DISP.SYRIN IV PRN ×2 (04:31→19:49)
[2017-02-27 04:54] LABS: BASOPHILS # (AUTO) 0.1 K/uL (0.0-8.0); BASOPHILS % (AUTO) 1.1 % (0.0-2.0); EOSINOPHILS # (AUTO) 0.9 K/uL (0.0-0.7); EOSINOPHILS % (AUTO) 7.2 % (0.0-7.0); HEMOGLOBIN 11.2 G/DL (14.0-18.0); LYMPHOCYTES # (AUTO) 1.3 K/UL (0.8-4.8); LYMPHOCYTES % (AUTO) 10.7 % (20.5-51.5); MEAN CORPUSCULAR HEMOGLOBIN 29.6 UUG (27.0-31.0); MEAN CORPUSCULAR HGB CONC 33 g/dL (32.0-37.0); MEAN CORPUSCULAR VOLUME 90.2 FL (82.0-92.0); MONOCYTES # (AUTO) 2.1 K/UL (0.1-1.30); MONOCYTES % (AUTO) 17.4 % (0.0-11.0); NEUTROPHILS # (AUTO) 7.5 K/UL (1.8-8.9); NEUTROPHILS % (AUTO) 63.6 % (38.5-71.5); PLATELET COUNT (AUTO) 147 K/UL (150-450); RED BLOOD CELL COUNT(AUTO) 3.78 MIL/UL (4.7-6.1); WHITE BLOOD COUNT (AUTO) 11.9 K/UL (4.0-11.2)
[2017-02-27 05:15] LABS: BILIRUBIN,TOTAL 1.4 mg/dL (0.2-1.0); CREATININE 6.8 mg/dL (0.6-1.3); MAGNESIUM 1.9 mg/dL (1.8-2.4); PHOSPHOROUS 5.4 mg/dL (2.5-4.9); TOTAL PROTEIN, SERUM 5.2 g/dL (6.4-8.2)
[2017-02-27 05:37] LABS: BAND % (MANUAL) 15 % (0-10); EOSINOPHILS % (MANUAL) 2 % (0-8); LYMPHOCYTES % (MANUAL) 17 % (20-40); MONOCYTES % (MANUAL) 13 % (2-10); NEUTROPHILS % (MANUAL) 53 % (42-75)
[2017-02-27] MEDS ORDERED: IV NORMAL SALINE 250 ML BAG IV PRN (06:15)
[2017-02-27] MEDS: PANTOPRAZOLE SODIUM 40 MG TABLET.DR PO SCH (06:37)
[2017-02-27] MEDS: IV NS 1000 ML 1,000 ML IV PRN ×2 (06:37→20:35)
[2017-02-27] MEDS: LACTULOSE 20 G/30 ML LIQUID UDC PO SCH ×3 (08:19→17:00)
[2017-02-27] MEDS: FLUDROCORTISONE ACETATE 0.1 MG TABLET PO SCH (08:19)
[2017-02-27] MEDS: RIFAXIMIN 550 MG TABLET PO SCH ×2 (08:19→17:01)
[2017-02-27] MEDS: Z GUARD REMEDY PASTE 57 GM TUBE TOP SCH ×2 (08:20→20:34)
[2017-02-27] MEDS: FLUTICASONE/VILANTEROL 1 EACH BLST.W.DEV INH SCH (08:22)
[2017-02-27] MEDS: MEROPENEM 250 MG in IV NORMAL SALINE 50 ML IV SCH ×2 (08:22→20:34)
[2017-02-27] MEDS: LACTOSE-FREE FOOD 237 ML LIQUID PO SCH ×2 (08:23→17:00)
[2017-02-27] MEDS: FOLIC ACID/VITAMIN B COMP W-C TABLET PO SCH (08:26)
--- NOTE | 2017-02-27 08:28 | NUR ---
US tech here to see pt for US scrotum.
[2017-02-27] MEDS: ONDANSETRON 4 MG/2 ML VIAL IV PRN ×2 (08:45→13:55)
--- NOTE | 2017-02-27 08:57 | NUR ---
US tech here to see pt for 2D Echocardiogram.
--- NOTE | 2017-02-27 10:10 | NUR ---
financial systems administrator here to see pt for dialysis treatment.
[2017-02-27] MEDS: ALBUMIN HUMAN 25% 100 ML IV PRN ×2 (10:40→11:30)
[2017-02-27] MEDS: GUAIFENESIN/DEXTROMETHORPHAN 5 ML UDC PO PRN ×2 (11:36→19:49)
[2017-02-27] MEDS: NOREPINEPHRINE BITARTRATE 16 MG in IV DEXTROSE 5% 500 ML IV PRN (12:01)
--- NOTE | 2017-02-27 12:24 | NUR ---
Hemodialysis complete. 1.2L of hemodialysis fluid removed. Pt stable and tolerated dialysis treatment well.
[2017-02-27] MEDS ORDERED: POTASSIUM CHLORIDE 20 MEQ TAB.PRT.SR PO ONE (12:45)
--- NOTE | 2017-02-27 15:15 | NUR ---
Dr. Hollingsworth and STUFFER Farrah (Infectious) here to see pt. Full report given. No new orders received.
--- NOTE | 2017-02-27 16:01 | NUR ---
PHARMACY CLINICAL NOTES ( VANCOMYCIN DOSING S: Continue vanco for this 57 yo male dialysis patient for Sepsis, PNA O: BUN/SCR 53/6.8 WBC 11.9 TEMP 98.6 Vancomycin pre HD level on am labs 18.4 A/P: He was dialyzed today. Since Vancomycin pre HD level was 18.4 , will give 500mg Vancomycin IV today and continue dosing per pre HD level. Will follow daily.
[2017-02-27] MEDS ORDERED: VANCOMYCIN IV 500 MG in IV DEXTROSE 5% 100 ML IV ONE (17:00)
--- NOTE | 2017-02-27 17:15 | NUR ---
Dr. Wade here to see pt. Full report given. No new orders received.
--- NOTE | 2017-02-27 17:20 | NUR ---
Offered pt dinner tray, but pt refused to eat and reports still feeling a little nauseated.
[2017-02-27] MEDS: HYDROCODONE/APAP 5-325MG TABLET PO PRN (19:01)
--- NOTE | 2017-02-27 19:30 | NUR ---
received patient on neosynephrine drip at 280 mcg/min to keep sbp >90 mm/hg ,continue to monitor vitals q 15 minutes and to adjust pressors accordingly . Addendum: 02/27/17 at 2023 by ABBI TYSON RN Amended: Links added.
--- NOTE | 2017-02-27 20:19 | NUR ---
patient verbalized on pain scrotal area ,day nurse already gave him Reader but he said his still in pain and wants something for pain given Perry chapman ,continue to monitor levels of pain . Addendum: 02/27/17 at 2026 by ABBI TYSON RN Amended: Links added.
[2017-02-28] VITALS (69 sets, daily range): BP systolic 83–125; BP diastolic 22–64
[2017-02-28] MEDS: PHENYLEPHRINE IV 80 MG in IV DEXTROSE 5% 250 ML IV PRN ×5 (00:56→20:49)
[2017-02-28] MEDS: GUAIFENESIN/DEXTROMETHORPHAN 5 ML UDC PO PRN (03:42)
[2017-02-28] MEDS: HYDROCODONE/APAP 5-325MG TABLET PO PRN (03:43)
--- NOTE | 2017-02-28 04:30 | NUR ---
am care done patient had a total of 3 bowel movement on shift ,soft to liquid brownish in color .am care done and changed soiled linens and gown sacral area and left hip dressing done with hydrogel and cover with Mepilex.z guard to bilateral groin oral care done, hob up called respiratory therapist patient been coughing ,cough medication given . Addendum: 02/28/17 at 0505 by ABBI TYSON RN Amended: Links added. Addendum: 02/28/17 at 0506 by ABBI TYSON RN Amended: Links added. Addendum: 02/28/17 at 0509 by ABBI TYSON RN Amended: Links added.
[2017-02-28 04:53] LABS: BASOPHILS # (AUTO) 0.1 K/uL (0.0-8.0); BASOPHILS % (AUTO) 0.6 % (0.0-2.0); EOSINOPHILS # (AUTO) 0.5 K/uL (0.0-0.7); EOSINOPHILS % (AUTO) 4.1 % (0.0-7.0); HEMOGLOBIN 10.6 G/DL (14.0-18.0); LYMPHOCYTES # (AUTO) 1.7 K/UL (0.8-4.8); LYMPHOCYTES % (AUTO) 13.2 % (20.5-51.5); MEAN CORPUSCULAR HEMOGLOBIN 30.3 UUG (27.0-31.0); MEAN CORPUSCULAR HGB CONC 33 g/dL (32.0-37.0); MEAN CORPUSCULAR VOLUME 91.5 FL (82.0-92.0); MONOCYTES # (AUTO) 2.1 K/UL (0.1-1.30); MONOCYTES % (AUTO) 15.7 % (0.0-11.0); NEUTROPHILS # (AUTO) 8.7 K/UL (1.8-8.9); NEUTROPHILS % (AUTO) 66.4 % (38.5-71.5); PLATELET COUNT (AUTO) 120 K/UL (150-450); WHITE BLOOD COUNT (AUTO) 13.1 K/UL (4.0-11.2)
[2017-02-28 05:02] LABS: BILIRUBIN,TOTAL 2.5 mg/dL (0.2-1.0); CREATININE 6.5 mg/dL (0.6-1.3); MAGNESIUM 1.9 mg/dL (1.8-2.4); PHOSPHOROUS 5.9 mg/dL (2.5-4.9); POTASSIUM 3.3 mmol/L (3.5-5.1); TOTAL PROTEIN, SERUM 5.3 g/dL (6.4-8.2)
[2017-02-28 05:05] LABS: BAND % (MANUAL) 8 % (0-10); LYMPHOCYTES % (MANUAL) 20 % (20-40); MONOCYTES % (MANUAL) 14 % (2-10); NEUTROPHILS % (MANUAL) 54 % (42-75)
[2017-02-28] MEDS: ALBUTEROL SULFATE 1.25 MG/3 ML NEBU NEB PRN ×3 (05:05→23:14)
[2017-02-28 05:06] LABS: EOSINOPHILS % (MANUAL) 4 % (0-8)
[2017-02-28] MEDS: PANTOPRAZOLE SODIUM 40 MG TABLET.DR PO SCH (06:08)
--- NOTE | 2017-02-28 07:39 | NUR ---
poly packer and heat sealer here to see pt for dialysis treatment, but pt refused. Pt stated that he is okay with paracentesis procedure for today, but not dialysis.
[2017-02-28] MEDS: LACTULOSE 20 G/30 ML LIQUID UDC PO SCH ×3 (07:42→16:39)
[2017-02-28] MEDS: LACTOSE-FREE FOOD 237 ML LIQUID PO SCH ×2 (07:42→16:39)
[2017-02-28] MEDS: FLUDROCORTISONE ACETATE 0.1 MG TABLET PO SCH ×2 (07:44→08:20)
[2017-02-28] MEDS: FLUTICASONE/VILANTEROL 1 EACH BLST.W.DEV INH SCH (07:44)
[2017-02-28] MEDS: FOLIC ACID/VITAMIN B COMP W-C TABLET PO SCH ×2 (07:44→08:20)
[2017-02-28] MEDS: RIFAXIMIN 550 MG TABLET PO SCH ×3 (07:44→16:40)
[2017-02-28] MEDS: MEROPENEM 250 MG in IV NORMAL SALINE 50 ML IV SCH (07:56)
[2017-02-28] MEDS: Z GUARD REMEDY PASTE 57 GM TUBE TOP SCH ×2 (07:56→20:14)
--- NOTE | 2017-02-28 08:23 | NUR ---
Pt refusing oral AM meds and unable to tolerate PO at this time d/t c/o of nausea and vomiting.
[2017-02-28] MEDS: ONDANSETRON 4 MG/2 ML VIAL IV PRN ×2 (08:58→14:09)
[2017-02-28] MEDS ORDERED: POTASSIUM CHLORIDE 20 MEQ TAB.PRT.SR PO ONE (09:15)
[2017-02-28] MEDS ORDERED: PHYTONADIONE 10 MG/1 ML AMPUL SQ ONE (09:15)
--- NOTE | 2017-02-28 10:02 | NUR ---
The tech informed the radiologist Dr. Scott at 9 :50 am for Paracentesis. The radiologist will come to CCU at [facility] at 4:00 PM to perform Paracentesis.
--- NOTE | 2017-02-28 10:11 | NUR ---
US tech here and stated that MD will be here to see pt for paracentesis procedure around 1600 today.
--- NOTE | 2017-02-28 10:11 | NUR ---
Spoke with Dr. Wade on the telephone. Full report given. New orders received.
[2017-02-28] MEDS ORDERED: POTASSIUM CHLORIDE 50 ML IV SCH (11:30)
[2017-02-28 11:50] LABS: *OCCULT BLOOD STOOL POSITIVE (NEGATIVE)
[2017-02-28] MEDS ORDERED: DOSING PER PHARMACY-COLISTIN IV XX PRN (13:15)
[2017-02-28] MEDS: IV NS 1000 ML 1,000 ML IV PRN (13:58)
[2017-02-28] MEDS ORDERED: DEXTROSE 5% IV SCH (15:00)
[2017-02-28] MEDS ORDERED: COLISTIMETHATE SODIUM IV SCH (15:00)
[2017-02-28] MEDS ORDERED: COLISTIMETHATE SODIUM 75 MG in IV DEXTROSE 5% 100 ML IV SCH (15:00)
--- NOTE | 2017-02-28 16:10 | NUR ---
Dr. Scott here to see pt for paracentesis procedure.
--- NOTE | 2017-02-28 16:49 | NUR ---
Paracentesis procedure complete. 6L of paracentesis tea-colored, yellow fluid removed. Pt tolerated procedure well with no complications.
--- NOTE | 2017-02-28 18:48 | NUR ---
End of shift: Pt resting in bed with fall precautions and safety measures maintained. senior java ui developer and alarms working properly wnl. IVF and IV dhaval infusing as ordered. Pt on 2L NC. DVT pumps on bilaterally. Call light within reach and all needs met. Pt stable and nad noted.
[2017-03-01] VITALS (91 sets, daily range): BP systolic 76–123; BP diastolic 31–68
[2017-03-01] MEDS: HYDROMORPHONE 2 MG/1 ML DISP.SYRIN IV PRN ×2 (01:27→19:46)
--- NOTE | 2017-03-01 01:30 | NUR ---
Noted bright red bloody stool, small amount. Checking STAT: H/H.
[2017-03-01 01:53] LABS: HEMATOCRIT 32.7 % (40-50); HEMOGLOBIN 10.6 G/DL (14.0-18.0)
--- NOTE | 2017-03-01 02:15 | NUR ---
Notified Dr Salcido of STAT H/H results & bright red bloody stool (prior documented).
[2017-03-01] MEDS: PHENYLEPHRINE IV 80 MG in IV DEXTROSE 5% 250 ML IV PRN ×4 (02:27→20:17)
[2017-03-01] MEDS: IV NS 1000 ML 1,000 ML IV PRN ×2 (04:04→17:39)
[2017-03-01 04:59] LABS: BASOPHILS # (AUTO) 0.3 K/uL (0.0-8.0); BASOPHILS % (AUTO) 1.6 % (0.0-2.0); EOSINOPHILS # (AUTO) 0.7 K/uL (0.0-0.7); EOSINOPHILS % (AUTO) 4.1 % (0.0-7.0); HEMATOCRIT 31.1 % (40-50); HEMOGLOBIN 10.4 G/DL (14.0-18.0); LYMPHOCYTES # (AUTO) 1.8 K/UL (0.8-4.8); LYMPHOCYTES % (AUTO) 11.4 % (20.5-51.5); MEAN CORPUSCULAR HEMOGLOBIN 29.9 UUG (27.0-31.0); MEAN CORPUSCULAR HGB CONC 33 g/dL (32.0-37.0); MEAN CORPUSCULAR VOLUME 89.8 FL (82.0-92.0); MONOCYTES # (AUTO) 2.2 K/UL (0.1-1.30); MONOCYTES % (AUTO) 13.3 % (0.0-11.0); NEUTROPHILS # (AUTO) 11.2 K/UL (1.8-8.9); NEUTROPHILS % (AUTO) 69.6 % (38.5-71.5); PLATELET COUNT (AUTO) 143 K/UL (150-450); RED BLOOD CELL COUNT(AUTO) 3.47 MIL/UL (4.7-6.1); WHITE BLOOD COUNT (AUTO) 16.2 K/UL (4.0-11.2)
[2017-03-01 05:09] LABS: BILIRUBIN,TOTAL 2.6 mg/dL (0.2-1.0); CREATININE 6.9 mg/dL (0.6-1.3); MAGNESIUM 1.9 mg/dL (1.8-2.4); PHOSPHOROUS 6.7 mg/dL (2.5-4.9); POTASSIUM 3.2 mmol/L (3.5-5.1); TOTAL PROTEIN, SERUM 5.1 g/dL (6.4-8.2)
[2017-03-01 06:02] LABS: BAND % (MANUAL) 12 % (0-10); EOSINOPHILS % (MANUAL) 3 % (0-8); LYMPHOCYTES % (MANUAL) 16 % (20-40); MONOCYTES % (MANUAL) 13 % (2-10); NEUTROPHILS % (MANUAL) 56 % (42-75)
[2017-03-01] MEDS: PANTOPRAZOLE SODIUM 40 MG TABLET.DR PO SCH (06:29)
--- NOTE | 2017-03-01 07:30 | NUR ---
RECIEVED PT LYING IN BED. DROWSY SLEEPY BUT AROUSABLE TO CALLS. APPEARS VERY WEAK AND STATED HE FEELS VERY TIRED. AFEBRILE. HR-SR WITH OCCASSIONAL PVC'S. NEOSYNEPHRINE DRIP INFUSING AT 225MCG/MIN VIA PICC LINE. SBP IS MAINTAINED ABOVE 90 SYSTOLIC. DENIES ANY CHEST PAINS
[2017-03-01] MEDS: RIFAXIMIN 550 MG TABLET PO SCH ×2 (08:17→16:36)
[2017-03-01] MEDS: LACTULOSE 20 G/30 ML LIQUID UDC PO SCH ×3 (08:17→16:36)
[2017-03-01] MEDS: Z GUARD REMEDY PASTE 57 GM TUBE TOP SCH ×2 (08:17→20:51)
[2017-03-01] MEDS: FLUDROCORTISONE ACETATE 0.1 MG TABLET PO SCH (08:17)
[2017-03-01] MEDS: FOLIC ACID/VITAMIN B COMP W-C TABLET PO SCH (08:18)
[2017-03-01] MEDS: FLUTICASONE/VILANTEROL 1 EACH BLST.W.DEV INH SCH (08:19)
[2017-03-01] MEDS: LACTOSE-FREE FOOD 237 ML LIQUID PO SCH ×2 (08:20→16:38)
--- NOTE | 2017-03-01 08:30 | NUR ---
SEEN AND EXAMINED BY DR PETTY WITH NEW ORDERS. PT IS SCHEDULED FOR HD TODAY.
[2017-03-01] MEDS ORDERED: POTASSIUM CHLORIDE 20 MEQ TAB.PRT.SR PO ONE (10:15)
--- NOTE | 2017-03-01 13:30 | NUR ---
SEEN AND EXAMINED BY DR AVILA WITH NEW ORDERS.
--- NOTE | 2017-03-01 14:27 | NUR ---
Refereed by nurse(Irais) regarding dietary supplement which was ordered on 02/26. Dietary supplement was ordered under PH[facility] category(Pharmacy) not FNS category(dietary). Spoke with the nurse. Patient is lactose intolerant, and request lactose free dietary supplement. AZALEA Cortés Renal BID (lactose free ),it a formulated to meet nutrition support in renal failure patient on HD will f/u if patient likes dietary supplement Addendum: 03/01/17 at [address] Amended: Links added.
--- NOTE | 2017-03-01 14:45 | NUR ---
SEEN AND EXAMINED BY CYNDI OLSEN, SEA KAYAKING GUIDE WITH NEW ORDERS. MADE AWARE OF THE POSITIVE C. DIF RESULT.
--- NOTE | 2017-03-01 16:15 | NUR ---
HEMODIALYSIS STARTED, PT TOLERATING WELL.
[2017-03-01] MEDS: METRONIDAZOLE 500 MG TABLET PO SCH ×2 (16:36→21:22)
--- NOTE | 2017-03-01 19:00 | NUR ---
HEMODIALYSIS DONE AND PULLED OUT 300ML FLUIDS. PT DID NOT WANT TO EAT DINNER YET. REPORT GIVEN TO RODRIGO OLSEN.
[2017-03-01] MEDS: COLISTIMETHATE SODIUM IV SCH (20:51)
[2017-03-01] MEDS: DEXTROSE 5% IV SCH (20:51)
[2017-03-02] VITALS (95 sets, daily range): BP systolic 66–130; BP diastolic 35–61
--- NOTE | 2017-03-02 00:01 | NUR ---
Continues Neosynephrine titration / IV spreadsheet. Alert & orientated X3. Spirits good. Conversing.
[2017-03-02] MEDS: PHENYLEPHRINE IV 80 MG in IV DEXTROSE 5% 250 ML IV PRN ×4 (03:44→21:55)
[2017-03-02 04:55] LABS: BASOPHILS # (AUTO) 0.2 K/uL (0.0-8.0); BASOPHILS % (AUTO) 1.4 % (0.0-2.0); EOSINOPHILS # (AUTO) 0.5 K/uL (0.0-0.7); EOSINOPHILS % (AUTO) 3.9 % (0.0-7.0); HEMATOCRIT 29.8 % (40-50); HEMOGLOBIN 9.9 G/DL (14.0-18.0); LYMPHOCYTES # (AUTO) 1.3 K/UL (0.8-4.8); LYMPHOCYTES % (AUTO) 9.3 % (20.5-51.5); MEAN CORPUSCULAR HGB CONC 33 g/dL (32.0-37.0); MEAN CORPUSCULAR VOLUME 89.8 FL (82.0-92.0); MONOCYTES # (AUTO) 1.9 K/UL (0.1-1.30); MONOCYTES % (AUTO) 13.9 % (0.0-11.0); NEUTROPHILS # (AUTO) 9.7 K/UL (1.8-8.9); NEUTROPHILS % (AUTO) 71.5 % (38.5-71.5); PLATELET COUNT (AUTO) 106 K/UL (150-450); RED BLOOD CELL COUNT(AUTO) 3.32 MIL/UL (4.7-6.1); WHITE BLOOD COUNT (AUTO) 13.6 K/UL (4.0-11.2)
[2017-03-02 05:04] LABS: MAGNESIUM 1.8 mg/dL (1.8-2.4); PHOSPHOROUS 5.7 mg/dL (2.5-4.9); POTASSIUM 3.6 mmol/L (3.5-5.1)
[2017-03-02] MEDS: METRONIDAZOLE 500 MG TABLET PO SCH ×3 (05:32→21:30)
[2017-03-02] MEDS: PANTOPRAZOLE SODIUM 40 MG TABLET.DR PO SCH (06:08)
[2017-03-02] MEDS: IV NS 1000 ML 1,000 ML IV PRN ×2 (08:10→20:44)
[2017-03-02] MEDS: LACTULOSE 20 G/30 ML LIQUID UDC PO SCH ×3 (08:11→16:51)
[2017-03-02] MEDS: FOLIC ACID/VITAMIN B COMP W-C TABLET PO SCH (08:11)
[2017-03-02] MEDS: FLUDROCORTISONE ACETATE 0.1 MG TABLET PO SCH (08:11)
[2017-03-02] MEDS: FLUTICASONE/VILANTEROL 1 EACH BLST.W.DEV INH SCH (08:12)
[2017-03-02] MEDS: RIFAXIMIN 550 MG TABLET PO SCH ×2 (08:12→16:51)
[2017-03-02] MEDS: Z GUARD REMEDY PASTE 57 GM TUBE TOP SCH ×2 (08:13→20:40)
[2017-03-02] MEDS: LACTOSE-FREE FOOD 237 ML LIQUID PO SCH ×2 (08:15→16:52)
--- NOTE | 2017-03-02 08:30 | NUR ---
PT IS MORE ALERT AND IN GOOD SPIRIT TODAY. ATE BREAKFAST WITH A LITTLE MORE APPETITE. PT STILL HAVING CONSTANT LIQUID STOOLS.
--- NOTE | 2017-03-02 09:00 | NUR ---
SEEN AND EXAMINED BY DR PETTY , NO ORDERS.
--- NOTE | 2017-03-02 09:30 | NUR ---
PT STILL ON VASOPRESSOR, NEOSYNEPHRINE DRIP STILL INFUSING VIA PICC LINE. SBP IS VERY LABILE.
--- NOTE | 2017-03-02 11:30 | NUR ---
C/O GENERALIZED BODY PAINS AND ACHING. PT REQUESTED FOR PAIN MEDICATION. MEDICATED WITH NORCO 1 TAB PO. PT ABLE TO SLEEP INTERMITTENTLY.
[2017-03-02] MEDS: HYDROCODONE/APAP 5-325MG TABLET PO PRN (13:36)
[2017-03-02] MEDS: GUAIFENESIN/DEXTROMETHORPHAN 5 ML UDC PO PRN (13:39)
[2017-03-02] MEDS: VANCOMYCIN FOR PO/GT/NG USE PO SCH ×2 (13:44→16:52)
--- NOTE | 2017-03-02 17:45 | NUR ---
SEEN AND EXAMINED BY DR AVILA WITH NEW ORDERS. FLORINDA TO INSERT FLEXISEAL FOR DIARRHEA.
--- NOTE | 2017-03-02 19:30 | NUR ---
Report received. Patient AAO, able to make needs known but with generalized weakness. O2 2 L N; NAD noted. On continuous Neosynephrine drip to keep SBP above 90; currently at 270 mcg/min. BPs monitored closely. Plan of care discussed with patient especially insertion of Flexiseal. Patient verbalized understanding. Addendum: 03/03/17 at 0042 by MAURICIO MCKEON RN Amended: Links added.
--- NOTE | 2017-03-02 20:15 | NUR ---
Flexi seal insertion done by Jimmy OLSEN; with small amounts of liquid brown stools. Patient cooperative. PM Care rendered. Addendum: 03/03/17 at 0044 by MAURICIO MCKEON RN Amended: Links added. Addendum: 03/03/17 at 0045 by MAURICIO MCKEON RN Amended: Links added.
--- NOTE | 2017-03-02 20:30 | NUR ---
Abdomen markedly distended, tight, with bowel sounds. Patient refused dinner; verbalized desire to sleep and rest. Encouraged food/fluid intake.
[2017-03-02] MEDS: DEXTROSE 5% IV SCH (20:40)
[2017-03-02] MEDS: COLISTIMETHATE SODIUM IV SCH (20:40)
[2017-03-02] MEDS: ZOLPIDEM 5 MG TABLET PO PRN (20:41)
--- NOTE | 2017-03-02 21:30 | NUR ---
Sleeping after Ambien dose.
[2017-03-03] VITALS (95 sets, daily range): BP systolic 73–140; BP diastolic 39–77
[2017-03-03] MEDS: VANCOMYCIN FOR PO/GT/NG USE PO SCH ×5 (00:07→23:25)
[2017-03-03] MEDS: PHENYLEPHRINE IV 80 MG in IV DEXTROSE 5% 250 ML IV PRN ×4 (02:34→17:32)
[2017-03-03 05:23] LABS: BILIRUBIN,TOTAL 1.8 mg/dL (0.2-1.0); CREATININE 6.8 mg/dL (0.6-1.3); PHOSPHOROUS 6.2 mg/dL (2.5-4.9)
[2017-03-03 05:53] LABS: BASOPHILS # (AUTO) 0.1 K/uL (0.0-8.0); BASOPHILS % (AUTO) 0.4 % (0.0-2.0); EOSINOPHILS # (AUTO) 0.6 K/uL (0.0-0.7); EOSINOPHILS % (AUTO) 3.6 % (0.0-7.0); HEMOGLOBIN 10.4 g/dL (12.5-16.3); LYMPHOCYTES # (AUTO) 1.4 K/uL (20.0-40.0); MEAN CORPUSCULAR HEMOGLOBIN 29.9 uug (23.8-33.4); MEAN CORPUSCULAR HGB CONC 34 g/dL (32.5-36.3); MEAN CORPUSCULAR VOLUME 89.4 fL (73.0-96.2); MONOCYTES # (AUTO) 2.2 K/uL (2.0-10.0); MONOCYTES % (AUTO) 12.9 % (0.0-11.0); NEUTROPHILS # (AUTO) 12.7 K/uL (1.8-8.9); NEUTROPHILS % (AUTO) 75.1 % (38.5-71.5); PLATELET COUNT (AUTO) 100 K/uL (152-348); RED BLOOD CELL COUNT(AUTO) 3.47 MIL/uL (4.06-5.63); WHITE BLOOD COUNT (AUTO) 16.9 K/uL (3.6-10.2)
[2017-03-03] MEDS: METRONIDAZOLE 500 MG TABLET PO SCH ×3 (06:04→21:43)
--- NOTE | 2017-03-03 06:15 | NUR ---
Patient remains on Neosynephrine drip at 260 mcg/min. Am care rendered. Had 100 ml of brown stools from fle alexandru seal. Skin care provided. Addendum: 03/03/17 at 0713 by MAURICIO MCKEON RN Amended: Links added.
[2017-03-03] MEDS: PANTOPRAZOLE SODIUM 40 MG TABLET.DR PO SCH (06:23)
[2017-03-03] MEDS: LACTOSE-FREE FOOD 237 ML LIQUID PO SCH ×2 (08:00→17:31)
[2017-03-03] MEDS: LACTULOSE 20 G/30 ML LIQUID UDC PO SCH ×3 (09:04→17:30)
[2017-03-03] MEDS: GUAIFENESIN/DEXTROMETHORPHAN 5 ML UDC PO PRN ×2 (09:04→17:31)
[2017-03-03] MEDS: FLUDROCORTISONE ACETATE 0.1 MG TABLET PO SCH (09:05)
[2017-03-03] MEDS: FOLIC ACID/VITAMIN B COMP W-C TABLET PO SCH (09:05)
[2017-03-03] MEDS: RIFAXIMIN 550 MG TABLET PO SCH ×2 (09:06→17:30)
[2017-03-03] MEDS: Z GUARD REMEDY PASTE 57 GM TUBE TOP SCH ×2 (09:07→20:26)
[2017-03-03] MEDS: FLUTICASONE/VILANTEROL 1 EACH BLST.W.DEV INH SCH (09:08)
[2017-03-03 09:33] LABS: BAND % (MANUAL) 7 % (0-10); EOSINOPHILS % (MANUAL) 4 % (0-8); LYMPHOCYTES % (MANUAL) 10 % (20-40); MONOCYTES % (MANUAL) 12 % (2-10); NEUTROPHILS % (MANUAL) 67 % (42-75)
[2017-03-03] MEDS: IV NS 1000 ML 1,000 ML IV PRN ×2 (10:06→23:10)
[2017-03-03] MEDS ORDERED: POTASSIUM CHLORIDE 50 ML IV SCH (10:15)
[2017-03-03] MEDS: HYDROMORPHONE 2 MG/1 ML DISP.SYRIN IV PRN ×2 (10:24→14:28)
--- NOTE | 2017-03-03 10:34 | NUR ---
medicated for back pain scale / Addendum: 03/03/17 at 1034 by WAYNE GARCIA RN Amended: Links added.
[2017-03-03] MEDS: POTASSIUM CHLORIDE 50 ML IV ONE ×2 (11:00→11:08)
[2017-03-03] MEDS: ALBUMIN HUMAN 25% 100 ML IV PRN ×2 (11:52→12:20)
--- NOTE | 2017-03-03 12:15 | NUR ---
kcl 20meq not given . aware. HD being started. Addendum: 03/03/17 at 1216 by WAYNE GARCIA RN Amended: Links added. Addendum: 03/03/17 at 1252 by WAYNE GARCIA RN Amended: Links added.
[2017-03-03] MEDS: NOREPINEPHRINE BITARTRATE 16 MG in IV DEXTROSE 5% 500 ML IV PRN (12:33)
--- NOTE | 2017-03-03 12:51 | NUR ---
hemodialysis in progress. hypotensive, albumin given per HD PRETTY. Torrey maxed out to 300mcg/min. Levophed drip resumed at 1 mcg and titrated to keep sbp >90 Addendum: 03/03/17 at 1252 by WAYNE GARCIA RN Amended: Links added.
[2017-03-03] MEDS: ONDANSETRON 4 MG/2 ML VIAL IV PRN ×2 (14:28→19:42)
--- NOTE | 2017-03-03 14:30 | NUR ---
patient c/o shortness of breath, patient requested breathing treatment. given by Foreign ESCOBAR noted patient has jugular vein distention and tight and distended abdomen Addendum: 03/03/17 at 1723 by WAYNE GARCIA RN Amended: Links added. Addendum: 03/03/17 at 1727 by WAYNE GARCIA RN Amended: Links added.
[2017-03-03] MEDS: LEVALBUTEROL HCL NEB 0.63 MG/3 ML NEBU NEB PRN (14:34)
--- NOTE | 2017-03-03 14:38 | NUR ---
hemodialysis completed. 1.5 liters fluid out. patient c/o back pain/and cough/ nausea. medicated with dilaudid and zofran. cough medicine not due yet. Addendum: 03/03/17 at 1438 by WAYNE GARCIA RN Amended: Links added.
--- NOTE | 2017-03-03 16:00 | NUR ---
pm care done, skin care done. patient loses energy real fast. patient aske neede to rest in between sides.patient appears so weak. Addendum: 03/03/17 at 1727 by WAYNE GARCIA RN Amended: Links added.
--- NOTE | 2017-03-03 17:00 | NUR ---
seen by dr Chappell. condition report given. Addendum: 03/03/17 at 1719 by WAYNE GARCIA RN Amended: Keri added. Addendum: 03/03/17 at 1723 by WAYNE GARCIA RN Amended: Keri added. Addendum: 03/03/17 at 1727 by WAYNE GARCIA RN Amended: Links added.
--- NOTE | 2017-03-03 18:43 | NUR ---
more weak and drowsy this pm, prefers to rest than eat dinner. took pm pills, oral care done thereafter. Addendum: 03/03/17 at 184 by WAYNE GARCIA RN Amended: Links added. Addendum: 03/03/17 at 1843 by WAYNE GARCIA RN Amended: Links added. Addendum: 03/03/17 at 1846 by WAYNE GARCIA RN Amended: Links added. Addendum: 03/03/17 at 8 by WAYNE GARCIA RN Amended: Links added. Addendum: 03/03/17 at 1848 by WAYNE GARCIA RN Amended: Links added.
--- NOTE | 2017-03-03 18:44 | NUR ---
pressors remained infusing. levophed at 2 mcg/min, neosynephrine at 180mcg/min Addendum: 03/03/17 at 1844 by WAYNE GARCIA RN Amended: Keri added. Addendum: 03/03/17 at 1845 by WAYNE GARCIA RN Amended: Links added. Addendum: 03/03/17 at 1848 by WAYNE GARCIA RN Amended: Links added. Addendum: 03/03/17 at 1848 by WAYNE GARCIA RN Amended: Links added.
--- NOTE | 2017-03-03 18:46 | NUR ---
sacral wound with serosanguinous drainage. skin care done Addendum: 03/03/17 at 6 by WAYNE GARCIA RN Amended: Links added. Addendum: 03/03/17 at 1847 by WAYNE GARCIA RN Amended: Links added. Addendum: 03/03/17 at 1847 by WAYNE GARCIA RN Amended: Links added.
--- NOTE | 2017-03-03 18:48 | NUR ---
had good breakfast but no appettite at lunch and dinner. patient appears malnourished. encourage to eat more to improve wound healing and improve energy Addendum: 03/03/17 at 1847 by WAYNE GARCIA RN Amended: Links added. Addendum: 03/03/17 at 1847 by WAYNE GARCIA RN Amended: Links added.
--- NOTE | 2017-03-03 19:26 | NUR ---
report given to JTaecharatkij. OLSEN Addendum: 03/03/17 at 1926 by WAYNE GARCIA RN Amended: Links added.
--- NOTE | 2017-03-03 19:30 | NUR ---
Report received. Patient on contact isolation for stool C diff, awake c/o nausea. O2 2 L NC sat above 94%. Coughing non productively. HOB elevated above 30 degrees at all times. Addendum: 03/03/17 at 2126 by MAURICIO MCKEON RN Amended: Links added.
--- NOTE | 2017-03-03 19:42 | NUR ---
Medicated with Zofran IV. Patient vomited large amounts of cortes fluids and partially digested food. Bath given as patient vomited to self. Flexi seal intact but with small amounts of brown stools leaking around anus. Flexi seal irrigated gently. Skin care provided. Complete linen change done. Patient weak but tolerated care fairly well. Abdomen markedly distended, tight to L side but soft to R side area. Bowel sounds audible. Addendum: 03/03/17 at 2131 by MAURICIO MCKEON RN Amended: Links added. Addendum: 03/03/17 at 2133 by MAURICIO MCKEON RN Amended: Links added.
--- NOTE | 2017-03-03 20:00 | NUR ---
On continuous Levophed and Neosynephrine drips for BP support. See IV spread sheet for dosages/rates. Addendum: 03/03/17 at 2134 by MAURICIO MCKEON RN Amended: Links added.
[2017-03-03] MEDS: DEXTROSE 5% IV SCH (20:26)
[2017-03-03] MEDS: COLISTIMETHATE SODIUM IV SCH (20:26)
[2017-03-03] MEDS: ZOLPIDEM 5 MG TABLET PO PRN (23:25)
--- NOTE | 2017-03-03 23:25 | NUR ---
Grunting and coughing non productively. Repositioned. Flexi seal irrigated. Still with small amounts of stools leaking around the Flexi seal. Skin care provided. Ambien given per patient's request. Taking po meds without problems. Addendum: 03/04/17 at 0040 by MAURICIO MCKEON RN Amended: Links added.
[2017-03-04] VITALS (68 sets, daily range): BP systolic 92–122; BP diastolic 43–90
[2017-03-04] MEDS: PHENYLEPHRINE IV 80 MG in IV DEXTROSE 5% 250 ML IV PRN (01:43)
[2017-03-04 04:55] LABS: BASOPHILS # (AUTO) 0.4 K/uL (0.0-8.0); BASOPHILS % (AUTO) 1.9 % (0.0-2.0); EOSINOPHILS # (AUTO) 0.3 K/uL (0.0-0.7); EOSINOPHILS % (AUTO) 1.6 % (0.0-7.0); HEMATOCRIT 28.8 % (40-50); HEMOGLOBIN 9.3 G/DL (14.0-18.0); LYMPHOCYTES # (AUTO) 1.3 K/UL (0.8-4.8); LYMPHOCYTES % (AUTO) 6.7 % (20.5-51.5); MEAN CORPUSCULAR HEMOGLOBIN 29.3 UUG (27.0-31.0); MEAN CORPUSCULAR HGB CONC 32 g/dL (32.0-37.0); MEAN CORPUSCULAR VOLUME 90.7 FL (82.0-92.0); MONOCYTES # (AUTO) 1.4 K/UL (0.1-1.30); MONOCYTES % (AUTO) 7.3 % (0.0-11.0); NEUTROPHILS # (AUTO) 15.8 K/UL (1.8-8.9); NEUTROPHILS % (AUTO) 82.5 % (38.5-71.5); PLATELET COUNT (AUTO) 82 K/UL (150-450); RED BLOOD CELL COUNT(AUTO) 3.18 MIL/UL (4.7-6.1); WHITE BLOOD COUNT (AUTO) 19.2 K/UL (4.0-11.2)
[2017-03-04 05:15] LABS: CREATININE 6.1 mg/dL (0.6-1.3); MAGNESIUM 1.9 mg/dL (1.8-2.4); PHOSPHOROUS 5.9 mg/dL (2.5-4.9); POTASSIUM 3.3 mmol/L (3.5-5.1)
[2017-03-04 06:17] LABS: BAND % (MANUAL) 9 % (0-10); LYMPHOCYTES % (MANUAL) 3 % (20-40); METAMYELOCYTES % 3 % (0-1); MONOCYTES % (MANUAL) 2 % (2-10); MYELOCYTES % 3 % (0-0); NEUTROPHILS % (MANUAL) 80 % (42-75)
[2017-03-04] MEDS: VANCOMYCIN FOR PO/GT/NG USE PO SCH ×4 (06:27→23:42)
[2017-03-04] MEDS: PANTOPRAZOLE SODIUM 40 MG TABLET.DR PO SCH (06:27)
[2017-03-04] MEDS: METRONIDAZOLE 500 MG TABLET PO SCH ×3 (06:27→21:25)
--- NOTE | 2017-03-04 06:30 | NUR ---
Slept fairly well during the night. Remains on Levophed and Neosynephrine drips to keep SBP above 90. Flexi seal with 250 ml of liquid brown stools with flecks of blood. Still leaks around the Flexi seal; skin care provided every after turning. No EKG changes; SR to ST. Contact isolation maintained.
[2017-03-04] MEDS: LACTULOSE 20 G/30 ML LIQUID UDC PO SCH ×3 (07:51→16:34)
[2017-03-04] MEDS: FLUTICASONE/VILANTEROL 1 EACH BLST.W.DEV INH SCH (07:59)
[2017-03-04] MEDS: FLUDROCORTISONE ACETATE 0.1 MG TABLET PO SCH (07:59)
[2017-03-04] MEDS: FOLIC ACID/VITAMIN B COMP W-C TABLET PO SCH (07:59)
[2017-03-04] MEDS: RIFAXIMIN 550 MG TABLET PO SCH ×2 (07:59→17:17)
[2017-03-04] MEDS: Z GUARD REMEDY PASTE 57 GM TUBE TOP SCH ×2 (08:00→20:36)
[2017-03-04] MEDS: LACTOSE-FREE FOOD 237 ML LIQUID PO SCH ×2 (08:00→16:34)
[2017-03-04] MEDS: LEVALBUTEROL HCL NEB 0.63 MG/3 ML NEBU NEB PRN ×2 (09:21→21:16)
[2017-03-04] MEDS: HYDROMORPHONE 2 MG/1 ML DISP.SYRIN IV PRN ×2 (09:43→19:54)
[2017-03-04] MEDS: NOREPINEPHRINE BITARTRATE 16 MG in IV DEXTROSE 5% 500 ML IV PRN (13:17)
[2017-03-04] MEDS: IV NS 1000 ML 1,000 ML IV PRN (13:29)
--- NOTE | 2017-03-04 19:09 | NUR ---
End of shift: Pt resting in bed awake and alert with fall precautions and safety measures maintained. patient monitor and alarms working properly wnl. IVF and IV Levophed infusing as ordered. Flexi-seal intact and draining properly. Pt stable and nad noted.
--- NOTE | 2017-03-04 20:00 | NUR ---
RECEIVED PT AWAKE, ALERT & ORIENTED X3, C/O PAIN ON HIS R ARM SCALE 6/10, MEDICATED W/ DILAUDID 0.5MG IVP ORDERED. ON LEVOPHED DRIP @ 8MCQ/MIN VIA JANICE PICC LINE. IVF NS @ 75CC/HR. ON O2 @ 2LNC W/ O2 SAT OF 97%. REPOSITIONED IN BED AFTER HS CARE DONE W/ HOB ELEVATED.
--- NOTE | 2017-03-04 20:26 | NUR ---
MEDICATED W/ ZOFRAN 4MG IVP FOR NAUSEA, KEPT HOB ELEVATED .
[2017-03-04] MEDS: DEXTROSE 5% IV SCH (20:35)
[2017-03-04] MEDS: COLISTIMETHATE SODIUM IV SCH (20:35)
[2017-03-04] MEDS: ONDANSETRON 4 MG/2 ML VIAL IV PRN (20:46)
--- NOTE | 2017-03-04 22:00 | NUR ---
HS CARE DONE, PT HAD SMALL AMT. OF GREENISH EMESIS & STATED HE FELT MUCH BETTER.
[2017-03-04] MEDS ORDERED: GUAIFENESIN/DEXTROMETHORPHAN 5 ML UDC ONE ×2 (22:16→22:43)
[2017-03-05] VITALS (94 sets, daily range): BP systolic 92–159; BP diastolic 37–78
--- NOTE | 2017-03-05 | NUR ---
BP REMAINS STABLE ON LEVOPHED DRIP @ 8MCQ/MIN.
[2017-03-05] MEDS: GUAIFENESIN/DEXTROMETHORPHAN 5 ML UDC PO PRN (00:21)
[2017-03-05] MEDS: LEVALBUTEROL HCL NEB 0.63 MG/3 ML NEBU NEB PRN (03:28)
[2017-03-05] MEDS: IV NS 1000 ML 1,000 ML IV PRN ×2 (03:28→17:26)
--- NOTE | 2017-03-05 04:05 | NUR ---
AM CARE DONE. ORAL CARE DONE. CLEANED & DRESSING APPLIED TO ALL OPEN AREAS. REPOSITIONED ON HIS SIDE W/ HOB ELEVATED.
[2017-03-05 05:05] LABS: BASOPHILS # (AUTO) 0.3 K/uL (0.0-8.0); BASOPHILS % (AUTO) 1.8 % (0.0-2.0); EOSINOPHILS # (AUTO) 0.7 K/uL (0.0-0.7); EOSINOPHILS % (AUTO) 3.6 % (0.0-7.0); HEMATOCRIT 27.9 % (40-50); HEMOGLOBIN 9.5 G/DL (14.0-18.0); LYMPHOCYTES # (AUTO) 1.3 K/UL (0.8-4.8); LYMPHOCYTES % (AUTO) 7.2 % (20.5-51.5); MEAN CORPUSCULAR HEMOGLOBIN 30.3 UUG (27.0-31.0); MEAN CORPUSCULAR HGB CONC 34 g/dL (32.0-37.0); MEAN CORPUSCULAR VOLUME 89.5 FL (82.0-92.0); MONOCYTES # (AUTO) 1.3 K/UL (0.1-1.30); NEUTROPHILS % (AUTO) 80.4 % (38.5-71.5); PLATELET COUNT (AUTO) 93 K/UL (150-450); RED BLOOD CELL COUNT(AUTO) 3.12 MIL/UL (4.7-6.1); WHITE BLOOD COUNT (AUTO) 18.6 K/UL (4.0-11.2)
[2017-03-05 05:08] LABS: CREATININE 6.9 mg/dL (0.6-1.3); POTASSIUM 3.2 mmol/L (3.5-5.1)
[2017-03-05 05:19] LABS: BAND % (MANUAL) 2 % (0-10); NEUTROPHILS % (MANUAL) 84 % (42-75)
[2017-03-05 05:20] LABS: LYMPHOCYTES % (MANUAL) 10 % (20-40); MONOCYTES % (MANUAL) 4 % (2-10)
[2017-03-05] MEDS: METRONIDAZOLE 500 MG TABLET PO SCH ×2 (05:48→14:21)
[2017-03-05] MEDS: VANCOMYCIN FOR PO/GT/NG USE PO SCH ×3 (05:48→17:28)
--- NOTE | 2017-03-05 06:18 | NUR ---
AWAKE WATCHING TV. DENIES DISCOMFORTS.
[2017-03-05] MEDS: PANTOPRAZOLE SODIUM 40 MG TABLET.DR PO SCH (06:24)
[2017-03-05] MEDS: LACTULOSE 20 G/30 ML LIQUID UDC PO SCH ×3 (08:21→17:00)
[2017-03-05] MEDS: FOLIC ACID/VITAMIN B COMP W-C TABLET PO SCH (08:22)
[2017-03-05] MEDS: RIFAXIMIN 550 MG TABLET PO SCH ×2 (08:23→17:27)
[2017-03-05] MEDS: LACTOSE-FREE FOOD 237 ML LIQUID PO SCH ×2 (08:23→17:00)
[2017-03-05] MEDS: FLUDROCORTISONE ACETATE 0.1 MG TABLET PO SCH (08:23)
[2017-03-05] MEDS: Z GUARD REMEDY PASTE 57 GM TUBE TOP SCH ×2 (08:24→20:55)
[2017-03-05] MEDS: FLUTICASONE/VILANTEROL 1 EACH BLST.W.DEV INH SCH (08:25)
[2017-03-05] MEDS: ONDANSETRON 4 MG/2 ML VIAL IV PRN ×2 (08:26→14:21)
--- NOTE | 2017-03-05 09:22 | NUR ---
Patient medicated for c/of nausea. throw up once. after eating 25% of breakfast tray.
--- NOTE | 2017-03-05 10:45 | NUR ---
Dr. Carbajal attending physician in the unit to examine patient.
[2017-03-05] MEDS ORDERED: ALBUMIN HUMAN 25% 100 ML IV ONE (11:00)
--- NOTE | 2017-03-05 13:47 | NUR ---
A call to attending physician to notify continuous vomiting and nausea. Addendum: 03/05/17 at 1351 by AKILAH SIERRA RN and decreased po. intake.
--- NOTE | 2017-03-05 13:56 | NUR ---
Christelle Caicedo [employer]ATION AGENT for GI services in at this time and notified of Gi consult ordered by attending physician.
[2017-03-05] MEDS: NOREPINEPHRINE BITARTRATE 16 MG in IV DEXTROSE 5% 500 ML IV PRN (14:05)
[2017-03-05] MEDS: HYDROMORPHONE 2 MG/1 ML DISP.SYRIN IV PRN (19:53)
--- NOTE | 2017-03-05 20:25 | NUR ---
Discussed CT of abdomen w/ contrast planned for tomorrow. Attempted to obtain consent from patient, however he is declining at this time stating that he is tired and does not wish to go through hemodialysis that is needed after administration of contrast. Discussed risks/benefits of procedure, continues to refuse at this time, but will discuss again in AM to decide depending on how he is feeling.
[2017-03-05] MEDS: DEXTROSE 5% IV SCH (20:55)
[2017-03-05] MEDS: COLISTIMETHATE SODIUM IV SCH (20:55)
[2017-03-05] MEDS ORDERED: HYDROMORPHONE 1 MG/1 ML DISP.SYRIN IV PRN (21:00)
[2017-03-05] MEDS: METRONIDAZOLE 500 MG/NS 100ML 500 MG in PREMIXED 1 EACH IV SCH (21:45)
[2017-03-06] VITALS (61 sets, daily range): BP systolic 95–126; BP diastolic 43–69
[2017-03-06] MEDS: VANCOMYCIN FOR PO/GT/NG USE PO SCH ×5 (00:22→23:56)
[2017-03-06 05:48] LABS: BASOPHILS # (AUTO) 0.4 K/uL (0.0-8.0); BASOPHILS % (AUTO) 2.2 % (0.0-2.0); EOSINOPHILS # (AUTO) 0.6 K/uL (0.0-0.7); EOSINOPHILS % (AUTO) 3.4 % (0.0-7.0); HEMATOCRIT 27.4 % (40-50); LYMPHOCYTES # (AUTO) 1.6 K/UL (0.8-4.8); LYMPHOCYTES % (AUTO) 8.9 % (20.5-51.5); MEAN CORPUSCULAR HGB CONC 33 g/dL (32.0-37.0); MEAN CORPUSCULAR VOLUME 91.4 FL (82.0-92.0); MONOCYTES # (AUTO) 1.7 K/UL (0.1-1.30); MONOCYTES % (AUTO) 9.8 % (0.0-11.0); NEUTROPHILS # (AUTO) 13.2 K/UL (1.8-8.9); NEUTROPHILS % (AUTO) 75.7 % (38.5-71.5); PLATELET COUNT (AUTO) 77 K/UL (150-450); WHITE BLOOD COUNT (AUTO) 17.5 K/UL (4.0-11.2)
[2017-03-06] MEDS: METRONIDAZOLE 500 MG/NS 100ML 500 MG in PREMIXED 1 EACH IV SCH ×3 (05:53→21:56)
[2017-03-06] MEDS: IV NS 1000 ML 1,000 ML IV PRN ×2 (05:54→20:04)
[2017-03-06] MEDS: HYDROMORPHONE 2 MG/1 ML DISP.SYRIN IV PRN ×2 (05:55→19:58)
[2017-03-06 06:08] LABS: CREATININE 6.2 mg/dL (0.6-1.3); PHOSPHOROUS 6.1 mg/dL (2.5-4.9); POTASSIUM 3.4 mmol/L (3.5-5.1)
[2017-03-06] MEDS: PANTOPRAZOLE SODIUM 40 MG TABLET.DR PO SCH (06:17)
--- NOTE | 2017-03-06 07:30 | NUR ---
RECIEVED PT SLEEPING IN BED BUT AROUSABLE. VERY PLEASANT. LEVOPHED DRIP INFUSING WELL AND IN PROGRESS. SBP MAINTAINED ABOVE 100SYSTOLIC. PT IS NPO AT THIS TIME. DENIES ANY N/V AT THIS TIME./
[2017-03-06] MEDS: LACTOSE-FREE FOOD 237 ML LIQUID PO SCH ×2 (08:00→17:22)
[2017-03-06] MEDS: FOLIC ACID/VITAMIN B COMP W-C TABLET PO SCH (08:52)
[2017-03-06] MEDS: LACTULOSE 20 G/30 ML LIQUID UDC PO SCH ×3 (08:52→17:18)
[2017-03-06] MEDS: RIFAXIMIN 550 MG TABLET PO SCH ×2 (08:53→17:19)
[2017-03-06] MEDS: Z GUARD REMEDY PASTE 57 GM TUBE TOP SCH ×2 (08:53→20:05)
[2017-03-06] MEDS: FLUDROCORTISONE ACETATE 0.1 MG TABLET PO SCH (08:53)
[2017-03-06] MEDS: FLUTICASONE/VILANTEROL 1 EACH BLST.W.DEV INH SCH (08:56)
[2017-03-06 09:30] LABS: BAND % (MANUAL) 3 % (0-10); BASOPHILS % (MANUAL) 1 % (0-2); EOSINOPHILS % (MANUAL) 2 % (0-8); LYMPHOCYTES % (MANUAL) 11 % (20-40); METAMYELOCYTES % 1 % (0-1); MONOCYTES % (MANUAL) 7 % (2-10); NEUTROPHILS % (MANUAL) 75 % (42-75)
--- NOTE | 2017-03-06 10:30 | NUR ---
SEEN AND EXAMINED BY DR CORREA WITH NEW ORDER. RESUMED PT'S DIET.
--- NOTE | 2017-03-06 12:30 | NUR ---
PT ATE LUNCH AND TOLERATED WELL WITHOUT ANY N/V NOTED. ABDOMEN IS STILL BIG AND DISTENDED.
--- NOTE | 2017-03-06 14:00 | NUR ---
FLEXISEAL INTACT AND DRAINING WATERY DARK GREEN STOOLS.
[2017-03-06] MEDS: NOREPINEPHRINE BITARTRATE 16 MG in IV DEXTROSE 5% 500 ML IV PRN (17:10)
--- NOTE | 2017-03-06 18:30 | NUR ---
PM CARE RENDERED. NO APPARENT DISTRESS NOTED. CT ABD WITH CONTRAST WILL BE DONE ON HEMODIALYSIS DAY.
--- NOTE | 2017-03-06 19:30 | NUR ---
rounds made patient in bed on and off asleep .aaox4. norepinephrine drip for bp support at 3 mcg/min to keep sbp >90 mm/hg.continue to monitor vital signs q15 min and to titrate accordingly. Addendum: 03/06/17 at 2118 by ABBI TYSON RN Amended: Links added.
--- NOTE | 2017-03-06 19:58 | NUR ---
patient called and verbalized his in pain. he said his pain is 8 /10 .aching pain to his abdomen area and upper back and sacral area.pain medication given Dilaudid prn . turned and reposition patient .back offloaded with pillow and bilateral heels off bed with pillows . Addendum: 03/06/17 at 2121 by ABBI TYSON RN Amended: Links added.
[2017-03-06] MEDS: DEXTROSE 5% IV SCH (20:04)
[2017-03-06] MEDS: COLISTIMETHATE SODIUM IV SCH (20:04)
--- NOTE | 2017-03-06 23:00 | NUR ---
encourage to eat ,patient with poor appetite .advised to eat more . hop aspiration precaution observed. Addendum: 03/07/17 at 0126 by ABBI TYSON RN Amended: Links added.
[2017-03-07] VITALS (86 sets, daily range): BP systolic 80–132; BP diastolic 42–98
--- NOTE | 2017-03-07 03:07 | NUR ---
dilaudid medication given for pain q request back . shoulder . sacral area .with good results for pain control.
[2017-03-07] MEDS: HYDROMORPHONE 2 MG/1 ML DISP.SYRIN IV PRN ×4 (03:37→22:59)
--- NOTE | 2017-03-07 04:30 | NUR ---
am bath done ,changed soiled linens and gown . skin care done . z guard applied to sacral/coccyx /scrotal area /bilateral groin .irrigated rectal tube .anuric . changed soiled linens and gown.
[2017-03-07] MEDS: VANCOMYCIN FOR PO/GT/NG USE PO SCH ×4 (05:44→23:54)
[2017-03-07] MEDS: METRONIDAZOLE 500 MG/NS 100ML 500 MG in PREMIXED 1 EACH IV SCH ×3 (05:44→21:31)
[2017-03-07] MEDS: PANTOPRAZOLE SODIUM 40 MG TABLET.DR PO SCH (06:17)
--- NOTE | 2017-03-07 07:15 | NUR ---
called [facility] called and left message .
--- NOTE | 2017-03-07 07:43 | NUR ---
saw dr Mauro webb in the [facility] .and informed verbally about pts labs and he said he will be in the unit soon .
--- NOTE | 2017-03-07 07:47 | NUR ---
: KYLEIGH aware about the labs he is coming .
[2017-03-07] MEDS: LACTOSE-FREE FOOD 237 ML LIQUID PO SCH ×2 (08:00→17:00)
--- NOTE | 2017-03-07 08:00 | NUR ---
REPORT RECEIVED.PT REMAINS AWAKE,ALERT,ORIENTED.RESPIRATION SLIGHTLY LABORED.ST ON MONITOR.REMAINS ON LEVOPHED TO SUPPORT BP.ABDOMEN IS VERY DISTENDED.RECTAL TUBE INTACT,DRAINING LIQUID STOOL.PT ON CONTACT ISOLATION.WILL CONTINUE TO FOLLOW.
[2017-03-07] MEDS ORDERED: IV NORMAL SALINE 250 ML IV ONE (08:56)
[2017-03-07] MEDS ORDERED: IOHEXOL 300MG/ML 100 ML INFUS..BTL ONE (08:56)
[2017-03-07] MEDS ORDERED: NORMAL SALINE FLUSH 10 ML DISP.SYRIN ONE (08:56)
[2017-03-07] MEDS: FLUDROCORTISONE ACETATE 0.1 MG TABLET PO SCH (09:00)
[2017-03-07] MEDS: FLUTICASONE/VILANTEROL 1 EACH BLST.W.DEV INH SCH (09:00)
[2017-03-07] MEDS: FOLIC ACID/VITAMIN B COMP W-C TABLET PO SCH (09:00)
[2017-03-07] MEDS: RIFAXIMIN 550 MG TABLET PO SCH ×2 (09:00→18:11)
[2017-03-07] MEDS: LACTULOSE 20 G/30 ML LIQUID UDC PO SCH ×3 (09:00→17:00)
--- NOTE | 2017-03-07 09:00 | NUR ---
MEDICATED WITH DILAUDID 0.5 MG IV C/O BACK PAIN.TRANSFERRED TO CT SCAN ON MONITOR.
--- NOTE | 2017-03-07 09:30 | NUR ---
PT IS BACK FROM CT SCAN.
--- NOTE | 2017-03-07 10:00 | NUR ---
DIALYSIS IN PROGRESS AT BEDSIDE.
[2017-03-07] MEDS: Z GUARD REMEDY PASTE 57 GM TUBE TOP SCH ×2 (11:39→20:48)
[2017-03-07] MEDS ORDERED: ALBUMIN HUMAN 25% 100 ML IV PRN (12:00)
[2017-03-07] MEDS: LEVALBUTEROL HCL NEB 0.63 MG/3 ML NEBU NEB PRN ×2 (12:28→16:59)
--- NOTE | 2017-03-07 16:00 | NUR ---
PT SISTER AT BEDSIDE ,UPDATE WITH PT CONDITION.
[2017-03-07] MEDS ORDERED: PHYTONADIONE 5 MG TABLET PO ONE (19:15)
[2017-03-07] MEDS ORDERED: PHYTONADIONE 10 MG/1 ML AMPUL SQ ONE (20:00)
[2017-03-07] MEDS: COLISTIMETHATE SODIUM IV SCH (20:50)
[2017-03-07] MEDS: DEXTROSE 5% IV SCH (20:50)
[2017-03-07 21:41] LABS: BASOPHILS # (AUTO) 0.2 K/uL (0.0-8.0); BASOPHILS % (AUTO) 1.1 % (0.0-2.0); EOSINOPHILS # (AUTO) 0.3 K/uL (0.0-0.7); EOSINOPHILS % (AUTO) 1.8 % (0.0-7.0); HEMOGLOBIN 8.7 G/DL (14.0-18.0); LYMPHOCYTES # (AUTO) 0.8 K/UL (0.8-4.8); MEAN CORPUSCULAR HEMOGLOBIN 30.8 UUG (27.0-31.0); MEAN CORPUSCULAR HGB CONC 34 g/dL (32.0-37.0); MEAN CORPUSCULAR VOLUME 91.9 FL (82.0-92.0); MONOCYTES # (AUTO) 1.1 K/UL (0.1-1.30); MONOCYTES % (AUTO) 6.2 % (0.0-11.0); NEUTROPHILS # (AUTO) 14.6 K/UL (1.8-8.9); NEUTROPHILS % (AUTO) 85.9 % (38.5-71.5); RED BLOOD CELL COUNT(AUTO) 2.83 MIL/UL (4.7-6.1)
[2017-03-07 21:46] LABS: CREATININE 5.8 mg/dL (0.6-1.3); POTASSIUM 3.1 mmol/L (3.5-5.1)
[2017-03-07 21:52] LABS: BILIRUBIN,TOTAL 2.3 mg/dL (0.2-1.0)
[2017-03-07 21:58] LABS: PLATELET COUNT (AUTO) 46 K/UL (150-450)
[2017-03-07 22:46] LABS: BAND % (MANUAL) 10 % (0-10); EOSINOPHILS % (MANUAL) 1 % (0-8); LYMPHOCYTES % (MANUAL) 8 % (20-40); MONOCYTES % (MANUAL) 6 % (2-10); NEUTROPHILS % (MANUAL) 75 % (42-75)
[2017-03-07] MEDS: IV NS 1000 ML 1,000 ML IV PRN (23:50)
[2017-03-08] VITALS (23 sets, daily range): BP systolic 90–133; BP diastolic 40–66
--- NOTE | 2017-03-08 00:01 | NUR ---
Patient remains in CCU#1. Continues O2 2L N/C. Vasopressor to left upper arm PICC via pump; weaned off trial. Dialysis catheter capped & intact. Anuric. Remains gross abdominal ascities. Uses SCD leg squeezers. Oral cares, turned & repositioned Q2H / self. Med / eMar / C/O pain with effect. Remains C-DIFF isolation. Rectal tube / diarrhea.
[2017-03-08] MEDS: LEVALBUTEROL HCL NEB 0.63 MG/3 ML NEBU NEB PRN (05:09)
[2017-03-08 05:19] LABS: CREATININE 6.3 mg/dL (0.6-1.3); MAGNESIUM 1.9 mg/dL (1.8-2.4); PHOSPHOROUS 5.3 mg/dL (2.5-4.9); POTASSIUM 3.1 mmol/L (3.5-5.1)
[2017-03-08 05:27] LABS: BASOPHILS # (AUTO) 0.1 K/uL (0.0-8.0); BASOPHILS % (AUTO) 0.6 % (0.0-2.0); EOSINOPHILS # (AUTO) 0.6 K/uL (0.0-0.7); EOSINOPHILS % (AUTO) 3.9 % (0.0-7.0); HEMATOCRIT 25.2 % (40-50); HEMOGLOBIN 8.3 G/DL (14.0-18.0); MEAN CORPUSCULAR HEMOGLOBIN 30.5 UUG (27.0-31.0); MEAN CORPUSCULAR HGB CONC 33 g/dL (32.0-37.0); MEAN CORPUSCULAR VOLUME 92.3 FL (82.0-92.0); MONOCYTES # (AUTO) 1.2 K/UL (0.1-1.30); MONOCYTES % (AUTO) 7.8 % (0.0-11.0); NEUTROPHILS % (AUTO) 80.7 % (38.5-71.5); RED BLOOD CELL COUNT(AUTO) 2.73 MIL/UL (4.7-6.1); WHITE BLOOD COUNT (AUTO) 14.9 K/UL (4.0-11.2)
[2017-03-08] MEDS: METRONIDAZOLE 500 MG/NS 100ML 500 MG in PREMIXED 1 EACH IV SCH ×3 (05:33→21:31)
[2017-03-08 05:35] LABS: PLATELET COUNT (AUTO) 48 K/UL (150-450)
[2017-03-08 06:21] LABS: BAND % (MANUAL) 2 % (0-10); EOSINOPHILS % (MANUAL) 6 % (0-8); LYMPHOCYTES % (MANUAL) 8 % (20-40); MONOCYTES % (MANUAL) 5 % (2-10); NEUTROPHILS % (MANUAL) 79 % (42-75)
[2017-03-08] MEDS: PANTOPRAZOLE SODIUM 40 MG TABLET.DR PO SCH (06:42)
[2017-03-08] MEDS: VANCOMYCIN FOR PO/GT/NG USE PO SCH ×4 (06:43→23:54)
[2017-03-08] MEDS: LACTOSE-FREE FOOD 237 ML LIQUID PO SCH ×2 (08:00→16:37)
[2017-03-08] MEDS: FOLIC ACID/VITAMIN B COMP W-C TABLET PO SCH (08:39)
[2017-03-08] MEDS: RIFAXIMIN 550 MG TABLET PO SCH ×2 (08:40→17:02)
[2017-03-08] MEDS: FLUDROCORTISONE ACETATE 0.1 MG TABLET PO SCH (08:40)
[2017-03-08] MEDS: FLUTICASONE/VILANTEROL 1 EACH BLST.W.DEV INH SCH (08:43)
[2017-03-08] MEDS: LACTULOSE 20 G/30 ML LIQUID UDC PO SCH ×3 (08:43→16:37)
[2017-03-08] MEDS: Z GUARD REMEDY PASTE 57 GM TUBE TOP SCH ×2 (08:44→20:28)
[2017-03-08] MEDS: HYDROMORPHONE 2 MG/1 ML DISP.SYRIN IV PRN ×4 (09:51→21:57)
--- NOTE | 2017-03-08 10:20 | NUR ---
Dr. Carbajal here to see pt. Full report given. okay to downgrade pt to telemetry status. No paracentesis order for today.
--- NOTE | 2017-03-08 11:00 | NUR ---
Call made to Dr. Carbajal regarding pt's low potassium level. Awaiting return call.
[2017-03-08] MEDS: IV NS 1000 ML 1,000 ML IV PRN (14:50)
--- NOTE | 2017-03-08 16:50 | NUR ---
ZOO DIRECTOR Yesica (GI) here to see pt. Full report given. New orders received. Also, spoke with Dr. Sams on the telephone and made aware of pt's probable partial thrombosis. No anticoagulants needed for pt at this time d/t low platelets and high INR per MD.
--- NOTE | 2017-03-08 19:04 | NUR ---
End of shift: Pt resting and dozing off in bed with fall precautions and safety measures maintained. Pt on 2L NC. IVF infusing as ordered. Flexi-seal intact and draining properly. night monitor and alarms working properly wnl. Pt stable and nad noted.
[2017-03-08] MEDS: COLISTIMETHATE SODIUM IV SCH (20:28)
[2017-03-08] MEDS: DEXTROSE 5% IV SCH (20:28)
[2017-03-09] VITALS (22 sets, daily range): BP systolic 90–129; BP diastolic 40–67
--- NOTE | 2017-03-09 00:01 | NUR ---
Patient remains in CCU#1. Continues O2 2L N/C. Remains off Vasopressor. Dialysis catheter capped & intact. Small void. Remains gross abdominal ascities. Mostly refuses SCD leg squeezers. Oral cares, turned & repositioned Q2H / self. Med / eMar / C/O pain with effect. Remains C-DIFF isolation. Rectal tube / diarrhea.
[2017-03-09 04:53] LABS: BASOPHILS # (AUTO) 0.3 K/uL (0.0-8.0); BASOPHILS % (AUTO) 1.5 % (0.0-2.0); EOSINOPHILS # (AUTO) 0.8 K/uL (0.0-0.7); EOSINOPHILS % (AUTO) 4.5 % (0.0-7.0); HEMATOCRIT 26.4 % (40-50); HEMOGLOBIN 8.6 G/DL (14.0-18.0); LYMPHOCYTES # (AUTO) 1.1 K/UL (0.8-4.8); LYMPHOCYTES % (AUTO) 6.5 % (20.5-51.5); MEAN CORPUSCULAR HEMOGLOBIN 29.6 UUG (27.0-31.0); MEAN CORPUSCULAR HGB CONC 33 g/dL (32.0-37.0); MONOCYTES # (AUTO) 1.4 K/UL (0.1-1.30); MONOCYTES % (AUTO) 8.4 % (0.0-11.0); NEUTROPHILS # (AUTO) 13.5 K/UL (1.8-8.9); NEUTROPHILS % (AUTO) 79.1 % (38.5-71.5); PLATELET COUNT (AUTO) 64 K/UL (150-450); WHITE BLOOD COUNT (AUTO) 17.1 K/UL (4.0-11.2)
[2017-03-09 05:05] LABS: CREATININE 6.7 mg/dL (0.6-1.3); MAGNESIUM 1.9 mg/dL (1.8-2.4); PHOSPHOROUS 5.7 mg/dL (2.5-4.9); POTASSIUM 3.1 mmol/L (3.5-5.1)
[2017-03-09] MEDS: HYDROMORPHONE 2 MG/1 ML DISP.SYRIN IV PRN (05:30)
--- NOTE | 2017-03-09 05:30 | NUR ---
NOTE TO PHARMACY: DILAUDID given & charted; elsewhere, in eMar.
[2017-03-09 05:31] LABS: BAND % (MANUAL) 4 % (0-10); BASOPHILS % (MANUAL) 1 % (0-2); EOSINOPHILS % (MANUAL) 3 % (0-8); LYMPHOCYTES % (MANUAL) 18 % (20-40); MONOCYTES % (MANUAL) 2 % (2-10); MYELOCYTES % 1 % (0-0); NEUTROPHILS % (MANUAL) 71 % (42-75)
[2017-03-09] MEDS ORDERED: HYDROMORPHONE 1 MG/1 ML DISP.SYRIN ONE (05:37)
[2017-03-09] MEDS: METRONIDAZOLE 500 MG/NS 100ML 500 MG in PREMIXED 1 EACH IV SCH ×3 (05:45→21:43)
[2017-03-09] MEDS: LEVALBUTEROL HCL NEB 0.63 MG/3 ML NEBU NEB PRN ×2 (06:03→14:53)
[2017-03-09] MEDS: IV NS 1000 ML 1,000 ML IV PRN ×2 (06:04→20:06)
[2017-03-09] MEDS: VANCOMYCIN FOR PO/GT/NG USE PO SCH ×4 (06:06→23:51)
[2017-03-09] MEDS: PANTOPRAZOLE SODIUM 40 MG TABLET.DR PO SCH (07:00)
[2017-03-09] MEDS: LACTULOSE 20 G/30 ML LIQUID UDC PO SCH ×3 (07:40→17:00)
[2017-03-09] MEDS: LACTOSE-FREE FOOD 237 ML LIQUID PO SCH ×2 (07:40→17:00)
[2017-03-09] MEDS: FOLIC ACID/VITAMIN B COMP W-C TABLET PO SCH (07:47)
[2017-03-09] MEDS: RIFAXIMIN 550 MG TABLET PO SCH ×2 (07:47→17:31)
[2017-03-09] MEDS: FLUDROCORTISONE ACETATE 0.1 MG TABLET PO SCH (07:48)
[2017-03-09] MEDS: FLUTICASONE/VILANTEROL 1 EACH BLST.W.DEV INH SCH (07:49)
[2017-03-09] MEDS: Z GUARD REMEDY PASTE 57 GM TUBE TOP SCH ×2 (07:49→20:07)
[2017-03-09 09:06] LABS: *IMMUNOGLOBULIN G, SERUM 786 mg/dL (700-1600); IMMUNOGLOBULIN A, SERUM 716 mg/dL (90-386); IMMUNOGLOBULIN M, SERUM 60 mg/dL (20-172)
[2017-03-09] MEDS: HYDROMORPHONE 4 MG/1 ML DISP.SYRIN IV PRN ×3 (11:09→20:57)
--- NOTE | 2017-03-09 13:56 | NUR ---
production director here to see pt for dialysis treatment.
[2017-03-09] MEDS ORDERED: ALBUMIN HUMAN 25% 50 ML IV PRN (14:45)
--- NOTE | 2017-03-09 16:45 | NUR ---
Dialysis completed. 1.7L of hemodialysis fluid removed. Pt stable and nad noted upon completion of treatment.
[2017-03-10] VITALS (13 sets, daily range): BP systolic 95–127; BP diastolic 49–67
[2017-03-10] MEDS: VANCOMYCIN FOR PO/GT/NG USE PO SCH ×4 (05:47→23:46)
[2017-03-10] MEDS: METRONIDAZOLE 500 MG/NS 100ML 500 MG in PREMIXED 1 EACH IV SCH ×2 (05:48→14:54)
[2017-03-10] MEDS: IV NS 1000 ML 1,000 ML IV PRN ×2 (05:54→19:42)
[2017-03-10] MEDS: PANTOPRAZOLE SODIUM 40 MG TABLET.DR PO SCH (06:41)
[2017-03-10 06:50] LABS: BASOPHILS # (AUTO) 0.2 K/uL (0.0-8.0); EOSINOPHILS # (AUTO) 0.5 K/uL (0.0-0.7); EOSINOPHILS % (AUTO) 3.4 % (0.0-7.0); HEMATOCRIT 24.5 % (36.7-47.1); HEMOGLOBIN 8.2 g/dL (12.5-16.3); LYMPHOCYTES % (AUTO) 6.6 % (20.5-51.5); MEAN CORPUSCULAR HEMOGLOBIN 31.2 uug (23.8-33.4); MEAN CORPUSCULAR HGB CONC 34 g/dL (32.5-36.3); MEAN CORPUSCULAR VOLUME 93.1 fL (73.0-96.2); MONOCYTES # (AUTO) 1.5 K/uL (2.0-10.0); MONOCYTES % (AUTO) 10.2 % (0.0-11.0); NEUTROPHILS # (AUTO) 11.8 K/uL (1.8-8.9); NEUTROPHILS % (AUTO) 78.8 % (38.5-71.5); PLATELET COUNT (AUTO) 58 K/uL (152-348); RED BLOOD CELL COUNT(AUTO) 2.64 MIL/uL (4.06-5.63); WHITE BLOOD COUNT (AUTO) 14.9 K/uL (3.6-10.2)
[2017-03-10 06:54] LABS: CREATININE 5.7 mg/dL (0.6-1.3); PHOSPHOROUS 5.3 mg/dL (2.5-4.9); POTASSIUM 3.5 mmol/L (3.5-5.1)
[2017-03-10] MEDS: HYDROCODONE/APAP 5-325MG TABLET PO PRN (06:54)
--- NOTE | 2017-03-10 06:54 | NUR ---
Medicated with [place] 1 tab for pain. VS stable.
--- NOTE | 2017-03-10 07:00 | NUR ---
PT IS LAYING IN BED COMFORTABLY. NO S/S OF RESPIRATORY DISTRESS NOTED. PT IS ON 2L NC HUMIDIFIED AIR. VS WNL. NO PAIN NOTED/REPORTED. ALL SAFETY NEEDS ARE MET. SCD ON. REPOSITIONED THE PT. FLEXSEAL IS IN PLACE/DRAINING LIQUID GREEN STOOL. PT REPORTS TO USE URINAL IF HE FEELS LIKE URINATING. WILL CONTINUE TO MONITOR.
[2017-03-10] MEDS: LACTOSE-FREE FOOD 237 ML LIQUID PO SCH ×2 (07:58→17:21)
[2017-03-10] MEDS: LACTULOSE 20 G/30 ML LIQUID UDC PO SCH ×2 (09:00→09:44)
--- NOTE | 2017-03-10 09:00 | NUR ---
per dr puri please place order for transfer to telemetry floor. Addendum: 03/10/17 at 1056 [address]ORE WYLIE RN DR. PURI CAME TO ASSESS THE PT, FULL REPORT IS GIVEN TO
[2017-03-10] MEDS: RIFAXIMIN 550 MG TABLET PO SCH ×2 (09:40→17:20)
[2017-03-10] MEDS: Z GUARD REMEDY PASTE 57 GM TUBE TOP SCH ×2 (09:41→20:30)
[2017-03-10] MEDS: FLUDROCORTISONE ACETATE 0.1 MG TABLET PO SCH (09:41)
[2017-03-10] MEDS: FOLIC ACID/VITAMIN B COMP W-C TABLET PO SCH (09:41)
[2017-03-10] MEDS: FLUTICASONE/VILANTEROL 1 EACH BLST.W.DEV INH SCH (09:42)
[2017-03-10 09:43] LABS: BAND % (MANUAL) 5 % (0-10); BASOPHILS % (MANUAL) 1 % (0-2); EOSINOPHILS % (MANUAL) 3 % (0-8); LYMPHOCYTES % (MANUAL) 8 % (20-40); MONOCYTES % (MANUAL) 8 % (2-10); NEUTROPHILS % (MANUAL) 75 % (42-75)
--- NOTE | 2017-03-10 10:12 | NUR ---
per dr. webb "d/c lactulose". Order noted, carried out
[2017-03-10] MEDS: HYDROMORPHONE 4 MG/1 ML DISP.SYRIN IV PRN ×3 (10:36→21:15)
[2017-03-10] MEDS: LEVALBUTEROL HCL NEB 0.63 MG/3 ML NEBU NEB PRN ×2 (12:05→16:13)
--- NOTE | 2017-03-10 19:33 | NUR ---
PT IS LAYING IN BED COMFORTABLY. NO S/S OF RESPIRATORY DISTRESS NOTED. PT IS ON 2L NC HUMIDIFIED AIR. VS WNL. NO PAIN NOTED/REPORTED. ALL SAFETY NEEDS ARE MET. SCD ON. REPOSITIONED THE PT. FLEXSEAL IS IN PLACE/DRAINING LIQUID GREEN STOOL. PT REPORTS TO USE URINAL IF HE FEELS LIKE URINATING.
--- NOTE | 2017-03-10 20:00 | NUR ---
RECEIVED PT. AWAKE, ALERT & ORIENTED X3, DENIES PAIN THIS TIME.. ON O2 @ 2LNC W/ O2 SAT OF 97%. IVF NS @ 75CC/HR VIA JANICE. REPOSITIONED SELF FOR COMFORT. NOT IN ANY DISTRESS.
--- NOTE | 2017-03-10 21:15 | NUR ---
C/O ABD. PAIN SCALE 6/10, MEDICATED W/ DILAUDID 0.5MG IVP ORDERED PRN. V/S STABLE.
--- NOTE | 2017-03-10 22:00 | NUR ---
SLEEPING @ THIS TIME. NOT IN ANY DISTRESS.
[2017-03-11] VITALS (10 sets, daily range): BP systolic 113–144; BP diastolic 58–73
[2017-03-11] MEDS: HYDROMORPHONE 4 MG/1 ML DISP.SYRIN IV PRN ×3 (02:03→16:11)
--- NOTE | 2017-03-11 04:00 | NUR ---
AM CARE DONE. IRRIGATED FLEXISEAL W/ THICK BLACKISH COLOR STOOL LIQUIDISH NOTED. REPOSITIONED SELF FOR COMFORTS.
[2017-03-11 05:16] LABS: BASOPHILS # (AUTO) 0.1 K/uL (0.0-8.0); BASOPHILS % (AUTO) 0.3 % (0.0-2.0); EOSINOPHILS # (AUTO) 0.7 K/uL (0.0-0.7); EOSINOPHILS % (AUTO) 4.7 % (0.0-7.0); HEMATOCRIT 25.1 % (36.7-47.1); HEMOGLOBIN 8.4 g/dL (12.5-16.3); LYMPHOCYTES # (AUTO) 1.1 K/uL (20.0-40.0); MEAN CORPUSCULAR HGB CONC 34 g/dL (32.5-36.3); MEAN CORPUSCULAR VOLUME 92.5 fL (73.0-96.2); MONOCYTES # (AUTO) 1.6 K/uL (2.0-10.0); NEUTROPHILS # (AUTO) 12.2 K/uL (1.8-8.9); PLATELET COUNT (AUTO) 74 K/uL (152-348); RED BLOOD CELL COUNT(AUTO) 2.72 MIL/uL (4.06-5.63); WHITE BLOOD COUNT (AUTO) 15.6 K/uL (3.6-10.2)
[2017-03-11 05:26] LABS: CREATININE 6.4 mg/dL (0.6-1.3); POTASSIUM 3.5 mmol/L (3.5-5.1)
[2017-03-11] MEDS: VANCOMYCIN FOR PO/GT/NG USE PO SCH ×3 (05:45→17:46)
[2017-03-11] MEDS: PANTOPRAZOLE SODIUM 40 MG TABLET.DR PO SCH (06:11)
--- NOTE | 2017-03-11 06:34 | NUR ---
RESTING QUITEY AFTER MEDICATED W/ DILAUDID 0.5MG IVP FOR PAIN.
--- NOTE | 2017-03-11 07:00 | NUR ---
PT IS LAYING IN BED COMFORTABLY. NO S/S OF RESPIRATORY DISTRESS NOTED. PT IS ON 2L NC HUMIDIFIED AIR. VS WNL. NO PAIN NOTED/REPORTED. ALL SAFETY NEEDS ARE MET. SCD ON. REPOSITIONED THE PT, ENCOURAGE TO MOVE IN BED, OK PER PT. FLEXISEAL IS IN PLACE/DRAINING LIQUID GREEN STOOL. PT REPORTS TO USE URINAL IF HE FEELS LIKE URINATING. WILL CONTINUE TO MONITOR.
[2017-03-11] MEDS: LEVALBUTEROL HCL NEB 0.63 MG/3 ML NEBU NEB PRN ×2 (08:07→13:25)
[2017-03-11] MEDS: LACTOSE-FREE FOOD 237 ML LIQUID PO SCH ×2 (08:17→17:04)
[2017-03-11 08:20] LABS: A/G RATIO 1.4 (0.7-1.7); ALBUMIN 2.6 g/dL (2.9-4.4); ALPHA-1-GLOBULIN 0.2 g/dL (0.0-0.4); ALPHA-2-GLOBULIN 0.2 g/dL (0.4-1.0); BETA GLOBULIN 0.8 g/dL (0.7-1.3); GAMMA GLOBULIN 0.7 g/dL (0.4-1.8); GLOBULIN, TOTAL 1.9 g/dL (2.2-3.9); M-SPIKE Not Observed g/dL (Not Observed)
--- NOTE | 2017-03-11 09:00 | NUR ---
DR WILLARD IS HERE TO ASSESS THE PT, FULL REPORT IS GIVEN TO DR WILLARD. PT WILL HAVE US GUIDED PARACETHESIS AND DIALYSIS TODAY PER
[2017-03-11] MEDS: FOLIC ACID/VITAMIN B COMP W-C TABLET PO SCH (09:16)
[2017-03-11] MEDS: FLUDROCORTISONE ACETATE 0.1 MG TABLET PO SCH (09:16)
[2017-03-11] MEDS: RIFAXIMIN 550 MG TABLET PO SCH ×2 (09:17→17:04)
[2017-03-11] MEDS: Z GUARD REMEDY PASTE 57 GM TUBE TOP SCH ×2 (09:17→20:36)
[2017-03-11] MEDS: FLUTICASONE/VILANTEROL 1 EACH BLST.W.DEV INH SCH (09:17)
[2017-03-11] MEDS: IV NS 1000 ML 1,000 ML IV PRN ×2 (09:17→22:45)
--- NOTE | 2017-03-11 10:44 | NUR ---
DR WILLARD ORDERED US GUIDED PARENTHESIS FOR TODAY, PT ABSOLUTELY REFUSED TO HAVE PARACENTESIS AND DIALYSIS ON THE SAME DAY. PT REFUSES TO SIGN CONSENT AND BE NPO FOR TODAY. ADVISED DR WILLARD, THAT PT STATES THAT HE IS OK WITH HAVING PARACENTESIS TOMORROW ON 03/12/2017. OK TO SCHEDULE US GUIDED PARACENTESIS FOR 03/12/[address] WILLARD.
[2017-03-11] MEDS ORDERED: ALBUMIN HUMAN 25% 100 ML IV PRN (11:30)
[2017-03-11] MEDS: GUAIFENESIN/DEXTROMETHORPHAN 5 ML UDC PO PRN (13:29)
--- NOTE | 2017-03-11 13:36 | NUR ---
PER DR WILLARD, MAKE THE BREATHING TREATMENT SCHEDULED Q6H, ADD ALBUTEROL TO BREATHING TREATMENT. Addendum: 03/11/17 at 1411 by KISHORE WYLIE RN USER ERROR: MD PONCHO RICHARDSON Q6H SCHEDULED
--- NOTE | 2017-03-11 14:43 | NUR ---
PT FINISHED HEMODIALYSIS, 2000 ML OUT. NO S/S OF BLEEDING NOTED, VS WNL, PT IS NOTED TO BE TACHYCARDIC, DR WILLARD AND DR CUBA ARE INFORMED.
[2017-03-11] MEDS: ONDANSETRON 4 MG/2 ML VIAL IV PRN (15:36)
[2017-03-11] MEDS ORDERED: METOCLOPRAMIDE HCL 10 MG/2 ML VIAL IV PRN ×2 (17:45→18:15)
--- NOTE | 2017-03-11 17:56 | NUR ---
PT STILL NAUSEOUS, PT'S O2 SAT IS AT 84 - 88%, ADVISE DR. WILLARD. THAT PT STILL FEELS NAUSEOUS AFTER ZOFRAN AND O2 SAT IS AT 84 - 90% ON 4L NC. PER DR WILLARD TRANSFER THE PT BACK TO CCU, ABGS STAT, CHEST XRAY STAT, REGLAN 10 MG IV Q8H PRN. PER [facility] PHARMACIST SINCE PT IS DIALYSIS CAN ONLY DO 5 MG QID OR 10 MG TWICE DAILY. PT IS ON 4L NC. Addendum: 03/11/17 at 1802 by KISHORE WYLIE RN PER DR WILLARD V/O REGLAN 5MG QID
[2017-03-11 18:07] LABS: ABG BASE EXCESS -4.9 mmol/L; ABG PCO2 42.3 mmHg (35.0-45.0); ABG PH 7.313 (7.350-7.450); ABG PO2 52.6 mmHg (75.0-100.0); ABG SITE RIGHT RADIAL; ABG TOTAL HEMOGLOBIN 9.6 G/dL (13.5-18.0); COHb 1.5 % (0.5-1.5); MetHb 0.7 % (0.0-1.5); O2Hb 81.8 % (94.0-97.0); VENT MODE Nasal Cannula
--- NOTE | 2017-03-11 18:17 | NUR ---
ABG RESULTS CAME BACK , RESULTS SHOWED TO DR WILLARD, PER DR WILLARD "LEAVE THE PT IN CCU FOR NOW". OK TO CALL DR HUYNH, [facility] PUT PHYSICIAN CONSULT
[2017-03-11] MEDS ORDERED: ALBUTEROL SULFATE 2.5 MG/3 ML NEBU NEB PRN (19:00)
[2017-03-11] MEDS: LEVALBUTEROL HCL NEB 0.63 MG/3 ML NEBU NEB SCH (19:32)
[2017-03-11] MEDS: IPRATROPIUM BROMIDE 0.5 MG/2.5 ML NEBU NEB SCH (19:32)
--- NOTE | 2017-03-11 20:57 | NUR ---
Patient is beginning to desat with O2 sat as low as 85%, worse with episodes of coughing. Notified Dr. Forte (rabbler), requesting consult. SBAR given. Orders received and implemented
[2017-03-12] VITALS (24 sets, daily range): BP systolic 90–145; BP diastolic 40–92
[2017-03-12] MEDS: IPRATROPIUM BROMIDE 0.5 MG/2.5 ML NEBU NEB SCH ×4 (01:06→19:52)
[2017-03-12] MEDS: LEVALBUTEROL HCL NEB 0.63 MG/3 ML NEBU NEB SCH ×4 (01:07→19:53)
[2017-03-12 05:54] LABS: BASOPHILS # (AUTO) 0.2 K/uL (0.0-8.0); BASOPHILS % (AUTO) 0.6 % (0.0-2.0); EOSINOPHILS # (AUTO) 0.1 K/uL (0.0-0.7); EOSINOPHILS % (AUTO) 0.2 % (0.0-7.0); HEMATOCRIT 26.2 % (36.7-47.1); HEMOGLOBIN 8.6 g/dL (12.5-16.3); LYMPHOCYTES # (AUTO) 0.4 K/uL (20.0-40.0); LYMPHOCYTES % (AUTO) 1.2 % (20.5-51.5); MEAN CORPUSCULAR HEMOGLOBIN 30.5 uug (23.8-33.4); MEAN CORPUSCULAR HGB CONC 33 g/dL (32.5-36.3); MEAN CORPUSCULAR VOLUME 92.7 fL (73.0-96.2); MONOCYTES # (AUTO) 1.9 K/uL (2.0-10.0); PLATELET COUNT (AUTO) 91 K/uL (152-348); RED BLOOD CELL COUNT(AUTO) 2.83 MIL/uL (4.06-5.63)
[2017-03-12 06:04] LABS: WHITE BLOOD COUNT (AUTO) 31.5 K/uL (3.6-10.2)
[2017-03-12 06:08] LABS: CREATININE 6.2 mg/dL (0.6-1.3); POTASSIUM 3.8 mmol/L (3.5-5.1)
[2017-03-12] MEDS: VANCOMYCIN FOR PO/GT/NG USE PO SCH ×5 (06:44→23:51)
[2017-03-12] MEDS: PANTOPRAZOLE SODIUM 40 MG TABLET.DR PO SCH (06:45)
[2017-03-12] MEDS: LACTOSE-FREE FOOD 237 ML LIQUID PO SCH ×2 (08:33→17:31)
[2017-03-12] MEDS: FLUDROCORTISONE ACETATE 0.1 MG TABLET PO SCH (09:18)
[2017-03-12] MEDS: FLUTICASONE/VILANTEROL 1 EACH BLST.W.DEV INH SCH (09:18)
[2017-03-12] MEDS: FOLIC ACID/VITAMIN B COMP W-C TABLET PO SCH (09:19)
[2017-03-12] MEDS: Z GUARD REMEDY PASTE 57 GM TUBE TOP SCH ×2 (09:19→20:13)
[2017-03-12] MEDS: RIFAXIMIN 550 MG TABLET PO SCH ×2 (09:19→19:09)
[2017-03-12 09:24] LABS: BAND % (MANUAL) 12 % (0-10); LYMPHOCYTES % (MANUAL) 2 % (20-40); MONOCYTES % (MANUAL) 6 % (2-10); NEUTROPHILS % (MANUAL) 80 % (42-75)
[2017-03-12] MEDS: IV NS 1000 ML 1,000 ML IV PRN (13:00)
--- NOTE | 2017-03-12 17:33 | NUR ---
pt tolerates peracentesis - 7 leters removed bu MD using sterile technique - site uneventful
[2017-03-13] VITALS (12 sets, daily range): BP systolic 90–120; BP diastolic 41–59
[2017-03-13] MEDS: IPRATROPIUM BROMIDE 0.5 MG/2.5 ML NEBU NEB SCH ×4 (01:21→20:26)
[2017-03-13] MEDS: LEVALBUTEROL HCL NEB 0.63 MG/3 ML NEBU NEB SCH ×4 (01:21→20:26)
[2017-03-13] MEDS: IV NS 1000 ML 1,000 ML IV PRN ×2 (01:37→15:04)
[2017-03-13] MEDS: HYDROMORPHONE 4 MG/1 ML DISP.SYRIN IV PRN ×3 (05:04→21:18)
[2017-03-13] MEDS: VANCOMYCIN FOR PO/GT/NG USE PO SCH ×3 (05:17→17:21)
[2017-03-13 05:20] LABS: BASOPHILS # (AUTO) 0.3 K/uL (0.0-8.0); BASOPHILS % (AUTO) 1.3 % (0.0-2.0); EOSINOPHILS # (AUTO) 0.6 K/uL (0.0-0.7); EOSINOPHILS % (AUTO) 2.3 % (0.0-7.0); HEMATOCRIT 25.2 % (40-50); HEMOGLOBIN 8.5 G/DL (14.0-18.0); LYMPHOCYTES # (AUTO) 1.2 K/UL (0.8-4.8); LYMPHOCYTES % (AUTO) 4.8 % (20.5-51.5); MEAN CORPUSCULAR HEMOGLOBIN 31.2 UUG (27.0-31.0); MEAN CORPUSCULAR HGB CONC 34 g/dL (32.0-37.0); MEAN CORPUSCULAR VOLUME 92.6 FL (82.0-92.0); MONOCYTES # (AUTO) 1.5 K/UL (0.1-1.30); NEUTROPHILS # (AUTO) 22.2 K/UL (1.8-8.9); NEUTROPHILS % (AUTO) 85.6 % (38.5-71.5); PLATELET COUNT (AUTO) 96 K/UL (150-450); RED BLOOD CELL COUNT(AUTO) 2.72 MIL/UL (4.7-6.1); WHITE BLOOD COUNT (AUTO) 25.8 K/UL (4.0-11.2)
[2017-03-13 05:54] LABS: CREATININE 6.8 mg/dL (0.6-1.3); POTASSIUM 3.1 mmol/L (3.5-5.1)
[2017-03-13] MEDS: PANTOPRAZOLE SODIUM 40 MG TABLET.DR PO SCH (06:25)
[2017-03-13] MEDS: LACTOSE-FREE FOOD 237 ML LIQUID PO SCH (08:00)
[2017-03-13] MEDS: RIFAXIMIN 550 MG TABLET PO SCH ×2 (08:52→17:21)
[2017-03-13] MEDS: Z GUARD REMEDY PASTE 57 GM TUBE TOP SCH ×2 (08:52→21:05)
[2017-03-13] MEDS: FOLIC ACID/VITAMIN B COMP W-C TABLET PO SCH (08:52)
[2017-03-13] MEDS: FLUDROCORTISONE ACETATE 0.1 MG TABLET PO SCH (08:53)
[2017-03-13] MEDS: FLUTICASONE/VILANTEROL 1 EACH BLST.W.DEV INH SCH (08:53)
[2017-03-13 09:22] LABS: BAND % (MANUAL) 10 % (0-10); EOSINOPHILS % (MANUAL) 2 % (0-8); LYMPHOCYTES % (MANUAL) 5 % (20-40); MONOCYTES % (MANUAL) 6 % (2-10); NEUTROPHILS % (MANUAL) 77 % (42-75)
--- NOTE | 2017-03-13 10:15 | NUR ---
Dr. Ramos here to see pt. Full report given. New orders received. stated that it was okay to downgrade pt to telemetry status.
--- NOTE | 2017-03-13 17:40 | NUR ---
superintendent measurement here to see pt for dialysis at the bedside.
[2017-03-13] MEDS ORDERED: ALBUMIN HUMAN 25% 50 ML IV PRN (17:45)
--- NOTE | 2017-03-13 20:30 | NUR ---
Hemodialysis complete, removed net of 1800 mL
[2017-03-14] VITALS (7 sets, daily range): BP systolic 88–110; BP diastolic 43–53
[2017-03-14] MEDS: VANCOMYCIN FOR PO/GT/NG USE PO SCH ×4 (00:02→17:30)
[2017-03-14] MEDS: IPRATROPIUM BROMIDE 0.5 MG/2.5 ML NEBU NEB SCH ×5 (01:15→20:54)
[2017-03-14] MEDS: LEVALBUTEROL HCL NEB 0.63 MG/3 ML NEBU NEB SCH ×5 (01:15→20:54)
--- NOTE | 2017-03-14 01:16 | NUR ---
Pt asleep. No distress noted. HHN tx not given. PRETTY Hernandez notified.
[2017-03-14] MEDS: IV NS 1000 ML 1,000 ML IV PRN ×2 (04:09→17:34)
[2017-03-14 05:32] LABS: BILIRUBIN,DIRECT 1.8 mg/dL (0.0-0.2); BILIRUBIN,TOTAL 3.3 mg/dL (0.2-1.0); HEMOGLOBIN 7.6 g/dL (12.5-16.3); MEAN CORPUSCULAR HGB CONC 33 g/dL (32.5-36.3); PLATELET COUNT (AUTO) 76 K/uL (152-348); POTASSIUM 3.5 mmol/L (3.5-5.1); TOTAL PROTEIN, SERUM 5.2 g/dL (6.4-8.2); WHITE BLOOD COUNT (AUTO) 15.6 K/uL (3.6-10.2)
[2017-03-14 05:39] LABS: BASOPHILS # (AUTO) 0.1 K/uL (0.0-8.0); BASOPHILS % (AUTO) 0.5 % (0.0-2.0); EOSINOPHILS # (AUTO) 0.6 K/uL (0.0-0.7); EOSINOPHILS % (AUTO) 3.5 % (0.0-7.0); LYMPHOCYTES # (AUTO) 1.1 K/uL (20.0-40.0); LYMPHOCYTES % (AUTO) 6.9 % (20.5-51.5); MEAN CORPUSCULAR HEMOGLOBIN 30.5 uug (23.8-33.4); MEAN CORPUSCULAR VOLUME 92.8 fL (73.0-96.2); MONOCYTES # (AUTO) 1.2 K/uL (2.0-10.0); MONOCYTES % (AUTO) 7.7 % (0.0-11.0); NEUTROPHILS # (AUTO) 12.7 K/uL (1.8-8.9); NEUTROPHILS % (AUTO) 81.4 % (38.5-71.5)
[2017-03-14 05:40] LABS: RED BLOOD CELL COUNT(AUTO) 2.48 MIL/uL (4.06-5.63)
--- NOTE | 2017-03-14 06:50 | NUR ---
Transferred patient to Telemetry unit, room 208. No significant events.
--- NOTE | 2017-03-14 07:30 | NUR ---
Received this transfer from CCU by bed. Awake, alert, oriented x 4/ O2 at 2L/NC. IVF infusing. Tele ST. Flexiseal intact
[2017-03-14] MEDS: PANTOPRAZOLE SODIUM 40 MG TABLET.DR PO SCH (08:45)
[2017-03-14] MEDS: FOLIC ACID/VITAMIN B COMP W-C TABLET PO SCH (08:45)
[2017-03-14] MEDS: FLUDROCORTISONE ACETATE 0.1 MG TABLET PO SCH (08:45)
[2017-03-14] MEDS: FLUTICASONE/VILANTEROL 1 EACH BLST.W.DEV INH SCH (08:45)
[2017-03-14] MEDS: RIFAXIMIN 550 MG TABLET PO SCH ×2 (08:45→17:30)
[2017-03-14] MEDS: Z GUARD REMEDY PASTE 57 GM TUBE TOP SCH ×2 (08:51→21:00)
--- NOTE | 2017-03-14 10:00 | NUR ---
Wound care done. Repositioned comfortably.
[2017-03-14] MEDS: ONDANSETRON 4 MG/2 ML VIAL IV PRN (15:11)
[2017-03-14] MEDS: HYDROMORPHONE 4 MG/1 ML DISP.SYRIN IV PRN ×2 (15:27→22:05)
--- NOTE | 2017-03-14 15:35 | NUR ---
Vomited 200 ml, Zofran IV given, with slight relief. Complaining of abdominal pain. Bp 110/53. Dilaudid given as ordered. Repositioned comfortably.
--- NOTE | 2017-03-14 17:30 | NUR ---
Family at bedside, supportive. With poor appetite. Kept dry and comfortable
[2017-03-15] VITALS: BP 103/52
[2017-03-15 00:01] VITALS: BP 103/52
[2017-03-15] MEDS: VANCOMYCIN FOR PO/GT/NG USE PO SCH ×5 (00:24→23:56)
[2017-03-15] MEDS: LEVALBUTEROL HCL NEB 0.63 MG/3 ML NEBU NEB SCH ×4 (01:41→19:42)
[2017-03-15] MEDS: IPRATROPIUM BROMIDE 0.5 MG/2.5 ML NEBU NEB SCH ×4 (01:41→19:42)
[2017-03-15 04:00] VITALS: BP_SYST 109; BP_SYST 146; BP_DIAS 54; BP_DIAS 57
[2017-03-15] MEDS: IV NS 1000 ML 1,000 ML IV PRN ×2 (05:34→18:38)
[2017-03-15] MEDS: PANTOPRAZOLE SODIUM 40 MG TABLET.DR PO SCH (06:32)
[2017-03-15 07:03] LABS: BASOPHILS # (AUTO) 0.1 K/uL (0.0-8.0); BASOPHILS % (AUTO) 0.6 % (0.0-2.0); EOSINOPHILS # (AUTO) 1.2 K/uL (0.0-0.7); HEMATOCRIT 25.3 % (36.7-47.1); HEMOGLOBIN 8.4 g/dL (12.5-16.3); LYMPHOCYTES # (AUTO) 1.2 K/uL (20.0-40.0); MEAN CORPUSCULAR HEMOGLOBIN 31.3 uug (23.8-33.4); MEAN CORPUSCULAR HGB CONC 33 g/dL (32.5-36.3); MEAN CORPUSCULAR VOLUME 93.9 fL (73.0-96.2); MONOCYTES # (AUTO) 1.4 K/uL (2.0-10.0); MONOCYTES % (AUTO) 9.2 % (0.0-11.0); NEUTROPHILS # (AUTO) 11.3 K/uL (1.8-8.9); NEUTROPHILS % (AUTO) 74.2 % (38.5-71.5); PLATELET COUNT (AUTO) 83 K/uL (152-348); RED BLOOD CELL COUNT(AUTO) 2.69 MIL/uL (4.06-5.63); WHITE BLOOD COUNT (AUTO) 15.2 K/uL (3.6-10.2)
[2017-03-15 07:05] LABS: CREATININE 6.5 mg/dL (0.6-1.3); POTASSIUM 3.7 mmol/L (3.5-5.1)
--- NOTE | 2017-03-15 08:30 | NUR ---
awake alert and oriented, tele ST 118, c/o of generalized pain- medicated with Dilaudid 0.5 mg iv as prn, with ascites, dialysis cath on the right upper chest area, explained plan of care- verbalized understanding to his capability, repositioned for breakfast and assisted minimally, safety measures maintained, call light within reach
[2017-03-15] MEDS: FLUTICASONE/VILANTEROL 1 EACH BLST.W.DEV INH SCH (08:37)
[2017-03-15] MEDS: RIFAXIMIN 550 MG TABLET PO SCH ×2 (08:37→17:07)
[2017-03-15] MEDS: FOLIC ACID/VITAMIN B COMP W-C TABLET PO SCH (08:37)
[2017-03-15] MEDS: FLUDROCORTISONE ACETATE 0.1 MG TABLET PO SCH (08:37)
[2017-03-15] MEDS: HYDROMORPHONE 4 MG/1 ML DISP.SYRIN IV PRN (08:38)
--- NOTE | 2017-03-15 10:00 | NUR ---
wound care done, kept clean and dry at all times, rectal tube with greenish stool in the tubing, c diff precautions observed
[2017-03-15] MEDS: Z GUARD REMEDY PASTE 57 GM TUBE TOP SCH ×2 (11:13→20:17)
[2017-03-15 11:25] VITALS: BP 99/53
--- NOTE | 2017-03-15 12:00 | NUR ---
seen by Dr Sams- josh order- for US of abdomen- lunch held at this time
[2017-03-15 15:39] VITALS: BP 95/57
--- NOTE | 2017-03-15 15:49 | NUR ---
US abdomen done in the room
[2017-03-15 16:07] LABS: HEPATITIS A AB, TOTAL Positive (Negative); HEPATITIS B SURFACE AB Non Reactive (.); HEPATITIS B SURFACE AG Negative (Negative)
--- NOTE | 2017-03-15 18:33 | NUR ---
no distress noted, has occasional non productive cough, dialysis tonight, all needs attended and met, call light within reach, downgraded to medsur this shift
[2017-03-15 19:00] VITALS: BP 107/59
[2017-03-15] MEDS: MORPHINE SULFATE 4 MG/1 ML DISP.SYRIN IV PRN (19:57)
--- NOTE | 2017-03-15 20:00 | NUR ---
PATIENT AWAKE,ALERT,ORIENTED,WITH SEVERE ASCITES,SOB AND OCCASIONALLY COUGH,CONTINUE PAIN MANAGEMENT NEEDED,CONTACT ISOLATION FOR POSITIVE C DIFF, FLEXI SEAL INTACT AND PATENT FLUSH NEEDED, DRAINAGE SEMI WATER STOOL,SKIN CARE/PROTECTION PROVIDED,MISSIONARY COORDINATOR GINA HERE, STATE UNABLE TO DO H/D TONIGHT ,WILL DO IT TOMORROW,BREATHING TX DONE BY R.T. WITH GOOD RESULT.
[2017-03-16] MEDS: IPRATROPIUM BROMIDE 0.5 MG/2.5 ML NEBU NEB SCH ×4 (00:47→19:28)
[2017-03-16] MEDS: LEVALBUTEROL HCL NEB 0.63 MG/3 ML NEBU NEB SCH ×4 (00:47→19:28)
[2017-03-16] MEDS: MORPHINE SULFATE 4 MG/1 ML DISP.SYRIN IV PRN ×3 (00:51→20:20)
[2017-03-16 04:00] VITALS: BP 108/55
[2017-03-16] MEDS: VANCOMYCIN FOR PO/GT/NG USE PO SCH ×3 (05:38→18:10)
[2017-03-16] MEDS: PANTOPRAZOLE SODIUM 40 MG TABLET.DR PO SCH (06:16)
[2017-03-16] MEDS: HYDROCODONE/APAP 5-325MG TABLET PO PRN (06:16)
[2017-03-16 06:51] LABS: BASOPHILS % (AUTO) 0.3 % (0.0-2.0); EOSINOPHILS % (AUTO) 7.2 % (0.0-7.0); HEMATOCRIT 24.3 % (36.7-47.1); HEMOGLOBIN 8.2 g/dL (12.5-16.3); LYMPHOCYTES # (AUTO) 1.1 K/uL (20.0-40.0); LYMPHOCYTES % (AUTO) 7.5 % (20.5-51.5); MEAN CORPUSCULAR HEMOGLOBIN 31.4 uug (23.8-33.4); MEAN CORPUSCULAR HGB CONC 34 g/dL (32.5-36.3); MEAN CORPUSCULAR VOLUME 93.4 fL (73.0-96.2); MONOCYTES # (AUTO) 1.5 K/uL (2.0-10.0); MONOCYTES % (AUTO) 10.4 % (0.0-11.0); NEUTROPHILS # (AUTO) 10.7 K/uL (1.8-8.9); NEUTROPHILS % (AUTO) 74.6 % (38.5-71.5); PLATELET COUNT (AUTO) 84 K/uL (152-348); WHITE BLOOD COUNT (AUTO) 14.3 K/uL (3.6-10.2)
[2017-03-16 06:56] LABS: BILIRUBIN,TOTAL 2.8 mg/dL (0.2-1.0); POTASSIUM 3.5 mmol/L (3.5-5.1); TOTAL PROTEIN, SERUM 5.4 g/dL (6.4-8.2)
--- NOTE | 2017-03-16 08:00 | NUR ---
resting in bed, for hemodialysis today, explained plan of care- verbalized understanding, denies of pain, no distress noted, abdomen distended and firm, call light within reach
[2017-03-16] MEDS: RIFAXIMIN 550 MG TABLET PO SCH ×2 (08:49→17:15)
[2017-03-16] MEDS: FLUDROCORTISONE ACETATE 0.1 MG TABLET PO SCH (08:49)
[2017-03-16] MEDS: FLUTICASONE/VILANTEROL 1 EACH BLST.W.DEV INH SCH (08:49)
[2017-03-16] MEDS: FOLIC ACID/VITAMIN B COMP W-C TABLET PO SCH (08:49)
[2017-03-16] MEDS: Z GUARD REMEDY PASTE 57 GM TUBE TOP SCH ×2 (08:52→20:22)
--- NOTE | 2017-03-16 10:00 | NUR ---
dialysis nurse at bedside
[2017-03-16] MEDS: IV NS 1000 ML 1,000 ML IV PRN (10:19)
[2017-03-16] MEDS: ONDANSETRON 4 MG/2 ML VIAL IV PRN (11:30)
[2017-03-16 11:59] VITALS: BP 82/40
--- NOTE | 2017-03-16 13:16 | NUR ---
awake alert and oriented, denies of pain at this time, on 2l/nc 02, dialysis cath on the right upper chest area, picc line intact and patent, for HD today, call light within reach, abdomen firm and distended
--- NOTE | 2017-03-16 14:00 | NUR ---
dialysis completed- nurse removed 1.3 L of fluid, BP 98/49
[2017-03-16 15:14] VITALS: BP 100/40
--- NOTE | 2017-03-16 16:00 | NUR ---
c/o generalized pain 11/14-medicated with morphine 3mg iv as prn, repositioned to right side with pillows for support, heels off loaded with pillows
--- NOTE | 2017-03-16 17:42 | NUR ---
Tolerating current diet, eating 50-100% of meals, patient is receiving Novasource Renal BID. on HD/ ESRD Anthropometry: current weight is 208lb , noticed weight discrepancy likely due to fluid shift/HD Labs; 03/16 WBC-14.3(H)-TRENDING DOWN,RBC-2.69(L),HGB/HCT-8.2/24.3(L/L),NA-135(L),BUN/CR-57/7(H/H) bowel sound present, liquid on flexi seal nutrition diagnosis: altered nutrition labs related to current condition ESRD as evidenced by above labs intervention: continue with current diet monitor:po intake,weight ,new labs Addendum: 03/20/17 at [address] Amended: Links added.
--- NOTE | 2017-03-16 18:02 | NUR ---
no distress noted, all needs attended and met, call light within reach
[2017-03-16 19:00] VITALS: BP 109/45
[2017-03-17] MEDS: VANCOMYCIN FOR PO/GT/NG USE PO SCH ×5 (00:35→23:32)
[2017-03-17] MEDS: ONDANSETRON 4 MG/2 ML VIAL IV PRN (00:35)
[2017-03-17] MEDS: IV NS 1000 ML 1,000 ML IV PRN ×2 (00:36→13:27)
[2017-03-17] MEDS: MORPHINE SULFATE 4 MG/1 ML DISP.SYRIN IV PRN ×5 (00:36→21:50)
[2017-03-17] MEDS: LEVALBUTEROL HCL NEB 0.63 MG/3 ML NEBU NEB SCH ×4 (01:59→18:59)
[2017-03-17] MEDS: IPRATROPIUM BROMIDE 0.5 MG/2.5 ML NEBU NEB SCH ×4 (01:59→18:59)
[2017-03-17 04:00] VITALS: BP 101/52
[2017-03-17] MEDS ORDERED: MORPHINE SULFATE 2 MG/1 ML DISP.SYRIN ONE (05:29)
[2017-03-17] MEDS: PANTOPRAZOLE SODIUM 40 MG TABLET.DR PO SCH (06:55)
[2017-03-17 08:08] LABS: BASOPHILS # (AUTO) 0.2 K/uL (0.0-8.0); EOSINOPHILS % (AUTO) 6.5 % (0.0-7.0); HEMATOCRIT 24.8 % (36.7-47.1); HEMOGLOBIN 8.2 g/dL (12.5-16.3); LYMPHOCYTES # (AUTO) 1.1 K/uL (20.0-40.0); LYMPHOCYTES % (AUTO) 7.2 % (20.5-51.5); MEAN CORPUSCULAR HEMOGLOBIN 30.7 uug (23.8-33.4); MEAN CORPUSCULAR HGB CONC 33 g/dL (32.5-36.3); MEAN CORPUSCULAR VOLUME 93.2 fL (73.0-96.2); MONOCYTES # (AUTO) 1.9 K/uL (2.0-10.0); MONOCYTES % (AUTO) 12.2 % (0.0-11.0); NEUTROPHILS # (AUTO) 11.5 K/uL (1.8-8.9); NEUTROPHILS % (AUTO) 73.1 % (38.5-71.5); PLATELET COUNT (AUTO) 72 K/uL (152-348); RED BLOOD CELL COUNT(AUTO) 2.66 MIL/uL (4.06-5.63); WHITE BLOOD COUNT (AUTO) 15.7 K/uL (3.6-10.2)
[2017-03-17 08:35] LABS: MAGNESIUM 1.9 mg/dL (1.8-2.4); POTASSIUM 3.2 mmol/L (3.5-5.1)
[2017-03-17] MEDS ORDERED: POTASSIUM CHLORIDE 10 MEQ CAPSULE.SA PO ONE (09:00)
[2017-03-17] MEDS: FOLIC ACID/VITAMIN B COMP W-C TABLET PO SCH (09:29)
[2017-03-17] MEDS: FLUDROCORTISONE ACETATE 0.1 MG TABLET PO SCH (09:29)
[2017-03-17] MEDS: RIFAXIMIN 550 MG TABLET PO SCH ×2 (09:29→17:40)
[2017-03-17] MEDS: Z GUARD REMEDY PASTE 57 GM TUBE TOP SCH ×2 (09:31→20:27)
[2017-03-17] MEDS: FLUTICASONE/VILANTEROL 1 EACH BLST.W.DEV INH SCH (09:31)
[2017-03-17 10:19] LABS: BAND % (MANUAL) 5 % (0-10); EOSINOPHILS % (MANUAL) 7 % (0-8); LYMPHOCYTES % (MANUAL) 9 % (20-40); MONOCYTES % (MANUAL) 10 % (2-10); NEUTROPHILS % (MANUAL) 69 % (42-75)
[2017-03-17] MEDS: GUAIFENESIN/DEXTROMETHORPHAN 5 ML UDC PO PRN (11:12)
[2017-03-17 11:38] VITALS: BP 97/36
[2017-03-17 15:28] VITALS: BP 108/53
[2017-03-17] MEDS: ALBUMIN HUMAN 25% 25 GM in PREMIXED 1 EACH IV SCH ×2 (16:58→23:53)
--- NOTE | 2017-03-17 19:30 | NUR ---
PT IN ROOM ALERT AWAKE IN NO ACUTE DISTRESS. STATES "I JUST WANT TO SLEEP". NO ACITVE DIARRHEA AT THIS TIME. CONTINUES ON 2L/MIN VIA N/C. LEFT UPPER ARM PICC INTACT AND PATENT. DENIES ANY PAIN OR DISCOMFORT AT THIS TIME. 3 SIDE RAILS UP AND CALL LIGHT PLACED WITHIN REACH. CONTINUE TO MONITOR. ISOLATION PRECAUTIONS IN EFFECT FOR C-DIFF.
[2017-03-17 20:03] VITALS: BP 92/46
--- NOTE | 2017-03-18 01:00 | NUR ---
Pt asleep in room. No reaction to Albumin and vancomycin medication. Able to follow simple commands. Rectal tube intact. Continue to monitor.
[2017-03-18] MEDS: IPRATROPIUM BROMIDE 0.5 MG/2.5 ML NEBU NEB SCH ×4 (01:07→19:51)
[2017-03-18] MEDS: LEVALBUTEROL HCL NEB 0.63 MG/3 ML NEBU NEB SCH ×4 (01:07→19:51)
[2017-03-18] MEDS: IV NS 1000 ML 1,000 ML IV PRN ×2 (02:38→18:50)
[2017-03-18] MEDS: MORPHINE SULFATE 4 MG/1 ML DISP.SYRIN IV PRN ×4 (03:36→22:10)
[2017-03-18 04:42] VITALS: BP 100/47
[2017-03-18] MEDS: VANCOMYCIN FOR PO/GT/NG USE PO SCH ×4 (05:47→23:58)
[2017-03-18] MEDS: ALBUMIN HUMAN 25% 25 GM in PREMIXED 1 EACH IV SCH ×2 (05:59→12:47)
[2017-03-18] MEDS: PANTOPRAZOLE SODIUM 40 MG TABLET.DR PO SCH (06:02)
--- NOTE | 2017-03-18 08:00 | NUR ---
Awake, alert, oriented x 3, forgetful at times. O2 at 2L/NC. IVF infusing. Sponge bath done. Wound care done
[2017-03-18] MEDS: RIFAXIMIN 550 MG TABLET PO SCH ×2 (09:52→18:49)
[2017-03-18] MEDS: FOLIC ACID/VITAMIN B COMP W-C TABLET PO SCH (09:52)
[2017-03-18] MEDS: FLUTICASONE/VILANTEROL 1 EACH BLST.W.DEV INH SCH (09:52)
[2017-03-18] MEDS: FLUDROCORTISONE ACETATE 0.1 MG TABLET PO SCH (09:52)
[2017-03-18] MEDS: Z GUARD REMEDY PASTE 57 GM TUBE TOP SCH ×2 (09:53→21:52)
[2017-03-18 11:40] VITALS: BP 80/40
[2017-03-18 16:20] VITALS: BP 99/48
--- NOTE | 2017-03-18 17:30 | NUR ---
HD done. BP stable
--- NOTE | 2017-03-18 18:30 | NUR ---
Complaining of pain. PRN medications given. Repositioned comfortably
--- NOTE | 2017-03-18 20:12 | NUR ---
RECEIVED SHIFT REPORT FROM PREVIOUS SHIFT NURSE. PATIENT IS RESTING COMFORTABLY IN BED, RECEIVING BREATHING TREATMENT. STABLE CONDITION, NO S/S OF DISTRESS. O2 2L NC ON. BED IN LOCKED/LOW POSITION, BED ALARM ON, SIDE RAILS UP X2, CALL LIGHT WITHIN REACH. SAFETY AND COMFORT WILL BE PROVIDED THROUGHOUT SHIFT.
[2017-03-18 20:23] VITALS: BP 97/47
[2017-03-18] MEDS: GUAIFENESIN/DEXTROMETHORPHAN 5 ML UDC PO PRN (22:10)
[2017-03-19] MEDS: LEVALBUTEROL HCL NEB 0.63 MG/3 ML NEBU NEB SCH ×4 (00:59→19:55)
[2017-03-19] MEDS: IPRATROPIUM BROMIDE 0.5 MG/2.5 ML NEBU NEB SCH ×4 (00:59→19:55)
[2017-03-19 05:02] VITALS: BP 91/50
[2017-03-19] MEDS: PANTOPRAZOLE SODIUM 40 MG TABLET.DR PO SCH (06:03)
[2017-03-19] MEDS: VANCOMYCIN FOR PO/GT/NG USE PO SCH ×3 (06:03→18:11)
--- NOTE | 2017-03-19 06:15 | NUR ---
PATIENT SLEPT THROUGH MAJORITY OF THE NIGHT. NO S/S OF DISTRESS, STABLE CONDITION, AND VITAL SIGNS WNL. NO COMPLAINTS OF PAIN, NO SIGNS OF COUGH, NO SIGNS OF FEVER. PATIENT IS IN SAFE CONDITION/ENVIRONMENT. BED IN LOCKED/LOW POSITION WITH SIDE RAILS UPX2, CALL LIGHT WITHIN REACH. SAFETY AND COMFORT WAS PROVIDED THROUGHOUT SHIFT. Addendum: 03/19/17 at 0616 by ARJ SHERMAN RN DISREGARD THIS NOTE, INCORRECT PATIENT.
--- NOTE | 2017-03-19 06:15 | NUR ---
PATIENT SLEPT INTERMITTENTLY THROUGH THE NIGHT. PATIENT COMPLAINED OF GENERALIZED PAIN, PAIN MANAGEMENT PROVIDED.PATIENT'S BLOOD PRESSURE REMAINS IN THE LOWER SIDE (91/50 MOST RECENT). OTHERWISE IN STABLE CONDITION, NO S/S OF DISTRESS.PATIENT'S WOUND DRESSINGS CHANGED. PICTURES TAKEN. PERICARE ALSO PROVIDED. BED IN LOCKED/LOW POSITION WITH SIDE RAILS UPX2,BED ALARM ON, CALL LIGHT WITHIN REACH. SAFETY AND COMFORT WAS PROVIDED THROUGHOUT SHIFT.
[2017-03-19] MEDS: FOLIC ACID/VITAMIN B COMP W-C TABLET PO SCH (08:39)
[2017-03-19] MEDS: RIFAXIMIN 550 MG TABLET PO SCH ×2 (08:39→17:00)
[2017-03-19] MEDS: FLUDROCORTISONE ACETATE 0.1 MG TABLET PO SCH (08:39)
[2017-03-19] MEDS: FLUTICASONE/VILANTEROL 1 EACH BLST.W.DEV INH SCH (08:42)
[2017-03-19] MEDS: Z GUARD REMEDY PASTE 57 GM TUBE TOP SCH ×2 (08:45→22:01)
[2017-03-19] MEDS: MORPHINE SULFATE 4 MG/1 ML DISP.SYRIN IV PRN ×3 (10:05→17:31)
[2017-03-19 11:06] VITALS: BP 113/60
[2017-03-19] MEDS: GUAIFENESIN/DEXTROMETHORPHAN 5 ML UDC PO PRN ×2 (12:16→18:11)
--- NOTE | 2017-03-19 12:16 | NUR ---
pt is coughing with flem and it is green pt is cough very hard. pt given Robitussin. medication is effective
[2017-03-19] MEDS: ONDANSETRON 4 MG/2 ML VIAL IV PRN (14:20)
--- NOTE | 2017-03-19 14:20 | NUR ---
pt is in pain 10/10 on sacral area, and pt c/o nausea and has and vomiting small emesis. pt was given Zofran and morphine. Both medication effective.
[2017-03-19 15:26] VITALS: BP 102/56
--- NOTE | 2017-03-19 18:11 | NUR ---
Pt has a severe cough causing him to throw up large emesis, some medications where held, and pt was given Robitussin. Medication effective. pt is resting with no respiratory distress.
[2017-03-19] MEDS: IV NS 1000 ML 1,000 ML IV PRN (18:32)
[2017-03-19 19:00] VITALS: BP 137/65
--- NOTE | 2017-03-19 20:22 | NUR ---
EYES CLOSED DURING INITIAL ROUNDS, MOANING. WHEN ASKED IF HE HAS PAIN,STATED A LITTLE BIT ON MY STOMACH. REFUSED PAIN MEDS OFFERED AT THIS TIME. IVF INFUSING ON JANICE . CONTINUE TO MONITOR.
--- NOTE | 2017-03-19 22:18 | NUR ---
REPORT GIVEN TO ONCOMING NURSE PRETTY COREAS
[2017-03-20] VITALS (34 sets, daily range): BP systolic 47–137; BP diastolic 27–87
[2017-03-20] MEDS: VANCOMYCIN FOR PO/GT/NG USE PO SCH ×3 (00:17→12:28)
[2017-03-20] MEDS: LEVALBUTEROL HCL NEB 0.63 MG/3 ML NEBU NEB SCH ×4 (01:30→19:11)
[2017-03-20] MEDS: IPRATROPIUM BROMIDE 0.5 MG/2.5 ML NEBU NEB SCH ×4 (01:30→19:11)
[2017-03-20] MEDS: ONDANSETRON 4 MG/2 ML VIAL IV PRN (02:09)
[2017-03-20] MEDS: MORPHINE SULFATE 4 MG/1 ML DISP.SYRIN IV PRN ×2 (02:09→05:38)
--- NOTE | 2017-03-20 05:35 | NUR ---
MORPHINE 4MG/ML RECIEVED FROM QUALITY CONTROL CLERK, ANGELICA HAS RAN OUT OF MOEPHINE, WASTED WITH CHARGE NURSE 1MG, 3 MG GIVEN TO PATIENT.
[2017-03-20] MEDS: PANTOPRAZOLE SODIUM 40 MG TABLET.DR PO SCH (05:39)
[2017-03-20] MEDS ORDERED: MORPHINE SULFATE 4 MG/1 ML DISP.SYRIN ONE (05:40)
[2017-03-20] MEDS: IV NS 1000 ML 1,000 ML IV PRN (05:48)
[2017-03-20 07:04] LABS: CREATININE 6.8 mg/dL (0.6-1.3); PHOSPHOROUS 6.4 mg/dL (2.5-4.9); POTASSIUM 3.9 mmol/L (3.5-5.1); TOTAL PROTEIN, SERUM 5.8 g/dL (6.4-8.2)
[2017-03-20 07:09] LABS: BASOPHILS % (AUTO) 0.2 % (0.0-2.0); EOSINOPHILS % (AUTO) 0.1 % (0.0-7.0); HEMATOCRIT 27.8 % (40-50); HEMOGLOBIN 9.1 G/DL (14.0-18.0); LYMPHOCYTES # (AUTO) 0.6 K/UL (0.8-4.8); LYMPHOCYTES % (AUTO) 2.5 % (20.5-51.5); MEAN CORPUSCULAR HGB CONC 33 g/dL (32.0-37.0); MEAN CORPUSCULAR VOLUME 94.7 FL (82.0-92.0); MONOCYTES # (AUTO) 1.6 K/UL (0.1-1.30); NEUTROPHILS # (AUTO) 20.8 K/UL (1.8-8.9); NEUTROPHILS % (AUTO) 90.2 % (38.5-71.5); PLATELET COUNT (AUTO) 117 K/UL (150-450); RED BLOOD CELL COUNT(AUTO) 2.94 MIL/UL (4.7-6.1)
--- NOTE | 2017-03-20 08:00 | NUR ---
awake, oriented x 4, looks weaker, on 2l/nc with head of bed elevated, dialysis catheter on the right upper chest area, PICC line on the right upper arm intact and patent, abdomen grossly firm and distended, flexiseal with green liquid stool in the bag and tubing, repositioned for comfort, refused breakfast at this time, has occasional cough productive of scant yellowish thick phlegm, denies of nausea, call light within reach
[2017-03-20] MEDS: FLUDROCORTISONE ACETATE 0.1 MG TABLET PO SCH (09:04)
[2017-03-20] MEDS: RIFAXIMIN 550 MG TABLET PO SCH ×2 (09:04→17:00)
[2017-03-20] MEDS: FOLIC ACID/VITAMIN B COMP W-C TABLET PO SCH (09:04)
[2017-03-20] MEDS: FLUTICASONE/VILANTEROL 1 EACH BLST.W.DEV INH SCH (09:05)
[2017-03-20 09:19] LABS: BAND % (MANUAL) 20 % (0-10); LYMPHOCYTES % (MANUAL) 4 % (20-40); MONOCYTES % (MANUAL) 6 % (2-10); NEUTROPHILS % (MANUAL) 70 % (42-75)
[2017-03-20] MEDS: Z GUARD REMEDY PASTE 57 GM TUBE TOP SCH ×2 (09:35→21:06)
--- NOTE | 2017-03-20 10:30 | NUR ---
informed Dr Godoy of wbc 23.o and lethargic- order given
--- NOTE | 2017-03-20 12:00 | NUR ---
seen by GI VAMP LINER
--- NOTE | 2017-03-20 12:42 | NUR ---
dialysis nurse here at bedside
--- NOTE | 2017-03-20 13:30 | NUR ---
dialysis in progress
--- NOTE | 2017-03-20 13:41 | NUR ---
HHN TX NOT GIVEN AT THIS TIME. PT HAVING A PROCEDURE AT THIS TIME. NO DISTRESS NOTED.
[2017-03-20] MEDS ORDERED: CALCIUM GLUCONATE 1 GM/10 ML VIAL IV ONE (14:02)
[2017-03-20] MEDS ORDERED: NOREPINEPHRINE BITARTRATE 4 MG/4 ML VIAL IV ONE (14:02)
[2017-03-20] MEDS ORDERED: SODIUM BICARBONATE 8.4% 50 MEQ/50 ML DISP.SYRIN IV ONE (14:02)
[2017-03-20] MEDS ORDERED: EPINEPHRINE-PF 1:1000 1 MG/ML AMPUL MC ONE (14:02)
--- NOTE | 2017-03-20 14:45 | NUR ---
dialysis nurse in the room, almost done with dialysis and opt vomited large amount of yellowish/brownish emesis and became unresponsive, suctioned and code blue called
--- NOTE | 2017-03-20 15:00 | NUR ---
CODE BLUE CALLED. DR. SHANTI BLANCO AT BEDSIDE, CPR INITIATED BY RT ISHAN AND I'M BAGGING PT. ETT 7.5 IN PLACED AND SECURED AT 23 CM LIP LINE. ETCO2 POSITIVE FOR COLOR CHANGE. BS EQUAL BILAT. CXR DONE AND TUBE PLACEMENT VERIFIED BY DR. SHANTI BLANCO. PT TRANSPORTED TO CCU 5 AND PLACED ON VENT WITH FOLLOWING SETTINGS AC 20 VT 500 PEEP 5 FIO2 100% PER MD. ETT RE SECURED VIA ANCHOR FAST. AMBU BAG AT BEDSIDE.
--- NOTE | 2017-03-20 15:10 | NUR ---
called duglas Ray and informed of pt's transfer to CCU
--- NOTE | 2017-03-20 15:15 | NUR ---
transferred to CCU
[2017-03-20 16:17] LABS: ABG BASE EXCESS -15.5 mmol/L; ABG HCO3 14.6 mmol/L; ABG PCO2 56.6 mmHg (35.0-45.0); ABG SITE RIGHT BRACHIAL; ABG TOTAL HEMOGLOBIN 8.9 G/dL (13.5-18.0); COHb 1.4 % (0.5-1.5); MetHb 0.5 % (0.0-1.5); O2Hb 96.8 % (94.0-97.0); VENT MODE VENT - A/C; VT, ABG 500 mL
--- NOTE | 2017-03-20 16:30 | NUR ---
PT T GOT TRANSFERRED TO CCU 5 FROM 208, POST CODE BLUE, POST INTUBATION, OBTUNDED, HR-RAPID AFIB IN THE 160B/MIN. ON LEVEPHED DRIP RUNNING AT 10MCK/MIN. VIA THE PICC LINE. PT CODED AFTER HD PROCEEDURE. VENT SETTING OF AC-20, VT-500, FIO2 100%, PEEP OF 5. O2SAT 98%. PT'S SBP MAINTAINED AT 99/47. SISTER AND FATHER AT THE BEDSIDE AND DR BLANCO TALKED TO THEM. TEMP-97.5F.
--- NOTE | 2017-03-20 16:30 | NUR ---
ABG RESULT INFORMED TO FRANCIS. VENT CHANGES MADE TO RATE OF 26 AND FIO2 60%. PT DESSATTED AND INCREASED FIO2 TO 100% .
--- NOTE | 2017-03-20 17:00 | NUR ---
FLEXISEAL CAME OUT ACCIDENTALLY AND REMOVED.
--- NOTE | 2017-03-20 17:04 | NUR ---
PHARMACY CLINICAL NOTES ( VANCOMYCIN DOSING0 S: Start vanco for this 57 yo male dialysis patient for suspected infection (vomited during dialysis today & code blue was called) O: BUN/SCR 51/6.8 WBC 23; TEMP 97.6 A/P: Will give vanco 1500mg IVPB x1 today at 1800. Will further dose was per protocol by vanco pre-HD level. Will follow HD scheduling for further dosing. Will monitor
[2017-03-20] MEDS: NOREPINEPHRINE BITARTRATE 16 MG in IV DEXTROSE 5% 500 ML IV PRN ×2 (17:13→23:54)
--- NOTE | 2017-03-20 17:30 | NUR ---
NOTIFIED DR BLANCO OF ABG RESULT THE SECOND TIME WITH ANOTHER VENT CHANGE OF AC-30, TV-550. DONE BY RT.
[2017-03-20 17:46] LABS: ABG BASE EXCESS -15.2 mmol/L; ABG HCO3 14.4 mmol/L; ABG PCO2 51.6 mmHg (35.0-45.0); ABG PH 7.064 (7.350-7.450); ABG PO2 135.6 mmHg (75.0-100.0); ABG SITE RIGHT RADIAL; ABG TOTAL HEMOGLOBIN 9.5 G/dL (13.5-18.0); COHb 0.9 % (0.5-1.5); MetHb 0.5 % (0.0-1.5); O2Hb 96.9 % (94.0-97.0); VENT MODE VENT - A/C26; VT, ABG 500 mL
[2017-03-20] MEDS ORDERED: VANCOMYCIN IV 1,500 MG in IV DEXTROSE 5% 500 ML IV ONE (18:00)
[2017-03-20] MEDS ORDERED: MEROPENEM 500 MG in IV NORMAL SALINE 50 ML IV SCH (18:45)
--- NOTE | 2017-03-20 19:11 | NUR ---
PT RECEIVED ON REES VENT WITH VENT SETTINGS OF AC 30, VT 550, PEEP +5, FIO2 100%. PT IS ORALLY INTUBATED WITH 7.5 ETT, APPROXIMATELY 23CM AT THE LIP. ENDOTRACHEAL TUBE IS PATENT AND SECURED WITH ANCHOR-FAST. VENT CHECK DONE. ALARMS CHECKED, ARE ON AND AUDIBLE. PT IS TACHYCARDIC AT THIS TIME. PT GIVEN Q6 LEVALBUTEROL/ATROVENT TX ORDERED BY MD. TOLERATED WELL. ORAL CARE DONE. HME CHANGED. SUCTIONED MODERATE AMOUNT OF BLOOD-TINGED SECRETIONS. AMBU BAG IS AT BEDSIDE. ABG TO BE DONE AT 1930. WILL CONTINUE TO MONITOR PT THROUGHOUT SHIFT.
--- NOTE | 2017-03-20 19:30 | NUR ---
CONDITION IS CRITICAL, PT IS STILL OBTUNDED.
[2017-03-20 19:44] LABS: ABG BASE EXCESS -15.5 mmol/L; ABG HCO3 13.2 mmol/L; ABG PCO2 42.9 mmHg (35.0-45.0); ABG PH 7.107 (7.350-7.450); ABG PO2 209.2 mmHg (75.0-100.0); ABG SITE RIGHT BRACHIAL; ABG TOTAL HEMOGLOBIN 9.7 G/dL (13.5-18.0); COHb 0.7 % (0.5-1.5); MetHb 0.5 % (0.0-1.5); O2Hb 98.5 % (94.0-97.0); VENT MODE VENT - A/C; VT, ABG 550 mL
[2017-03-20] MEDS ORDERED: PHYTONADIONE 10 MG/1 ML AMPUL SQ ONE (19:45)
--- NOTE | 2017-03-20 19:45 | NUR ---
FIO2 TITRATED TO 70% PER ABG RESULTS. SPO2 REMAINS AT 100% AT THIS TIME. WILL MONITOR PATIENT ACCORDINGLY.
--- NOTE | 2017-03-20 20:00 | NUR ---
Dr. Eunice Godoy informed of 1930 ABG results and of pt's uncontrolled AFib. New orders noted to initiate Amiodarone therapy. Pt remains obtunded, intubated. Comfortable on current vent settings. Remains hypotensive with fast rhythm. Levophed titrating to keep SBP above 100. Abdomen grossly distended, will place NG Tube. Aspiration precautions observed at all times. Turned/positioned. Nursing comfort measures maintained. Please see CCU flowsheet for full assessment and clinical data.
[2017-03-20] MEDS ORDERED: AMIODARONE HCL IV 150 MG in IV DEXTROSE 5% 100 ML IV ONE (20:30)
[2017-03-20] MEDS ORDERED: AMIODARONE HCL IV 900 MG in IV DEXTROSE 5% 482 ML IV PRN (20:45)
[2017-03-20] MEDS: MEROPENEM 500 MG in IV NORMAL SALINE 50 ML IV SCH (21:06)
[2017-03-20] MEDS ORDERED: IV NS 1000 ML 1,000 ML IV ONE (21:30)
[2017-03-20] MEDS ORDERED: IV NORMAL SALINE 250 ML IV PRN (21:30)
--- NOTE | 2017-03-20 22:00 | NUR ---
Pt converted to SR rate 90's an hour after placed on Amiodarone drip. Levophed titrating down. Please see IV spreadsheet. New skin issues, routine wound care done per protocol. [place] sump tube Fr. 16 inserted without difficulty and checked for placement/patency; hooked to low suction. Will confirm placement with AM's CXR.
[2017-03-20] MEDS: METRONIDAZOLE 500 MG/NS 100ML 500 MG in PREMIXED 1 EACH IV SCH (22:18)
[2017-03-21] VITALS (92 sets, daily range): BP systolic 75–126; BP diastolic 38–72
[2017-03-21] MEDS: IPRATROPIUM BROMIDE 0.5 MG/2.5 ML NEBU NEB SCH ×4 (01:25→19:16)
[2017-03-21] MEDS: LEVALBUTEROL HCL NEB 0.63 MG/3 ML NEBU NEB SCH ×4 (01:25→19:16)
[2017-03-21 05:05] LABS: BASOPHILS # (AUTO) 0.1 K/uL (0.0-8.0); BASOPHILS % (AUTO) 0.3 % (0.0-2.0); EOSINOPHILS # (AUTO) 0.2 K/uL (0.0-0.7); EOSINOPHILS % (AUTO) 0.7 % (0.0-7.0); HEMATOCRIT 27.6 % (36.7-47.1); HEMOGLOBIN 8.3 g/dL (12.5-16.3); LYMPHOCYTES # (AUTO) 0.7 K/uL (20.0-40.0); LYMPHOCYTES % (AUTO) 1.9 % (20.5-51.5); MEAN CORPUSCULAR HEMOGLOBIN 31.5 uug (23.8-33.4); MEAN CORPUSCULAR HGB CONC 30 g/dL (32.5-36.3); MEAN CORPUSCULAR VOLUME 104.7 fL (73.0-96.2); MONOCYTES # (AUTO) 0.8 K/uL (2.0-10.0); MONOCYTES % (AUTO) 2.1 % (0.0-11.0); PLATELET COUNT (AUTO) 117 K/uL (152-348); RED BLOOD CELL COUNT(AUTO) 2.63 MIL/uL (4.06-5.63)
[2017-03-21 05:23] LABS: WHITE BLOOD COUNT (AUTO) 35.7 K/uL (3.6-10.2)
[2017-03-21 05:24] LABS: CREATININE 6.3 mg/dL (0.6-1.3); MAGNESIUM 2.1 mg/dL (1.8-2.4)
[2017-03-21 06:02] LABS: PHOSPHOROUS 9.6 mg/dL (2.5-4.9)
[2017-03-21 06:23] LABS: ABG BASE EXCESS -22.7 mmol/L; ABG PH 6.901 (7.350-7.450); ABG PO2 71.4 mmHg (75.0-100.0); ABG SITE RIGHT FEMORAL; ABG TOTAL HEMOGLOBIN 8.9 G/dL (13.5-18.0); MetHb 0.7 % (0.0-1.5); O2Hb 84.8 % (94.0-97.0); VENT MODE VENT - A/C; VT, ABG 550 mL
--- NOTE | 2017-03-21 06:30 | NUR ---
Dr. Eunice Godoy informed of all critical labs and of pt condition. stated he'll speak to family. dentistry teacher at bedside. Please see CCU flowsheet for trends and clinical data.
[2017-03-21] MEDS: METRONIDAZOLE 500 MG/NS 100ML 500 MG in PREMIXED 1 EACH IV SCH ×3 (06:55→21:49)
[2017-03-21] MEDS: PANTOPRAZOLE SODIUM 40 MG TABLET.DR PO SCH (06:56)
[2017-03-21] MEDS ORDERED: ALBUMIN HUMAN 25% 100 ML IV PRN (07:45)
--- NOTE | 2017-03-21 07:50 | NUR ---
Pt received obtunded.Orally intubated.SR on monitor.Remains on Levophed gtt to support BP.Remains on Amiodorone gtt per protocol.Spoke with regarding low blood sugar,low bicarb.New orders received.Will continue to monitor.
[2017-03-21] MEDS ORDERED: DEXTROSE 25% 10 ML DISP.SYRIN IV ONE (08:00)
[2017-03-21] MEDS ORDERED: SODIUM BICARBONATE 8.4% 50 MEQ in IV D5 1/2 NS 1000 ML 1,000 ML IV PRN (08:00)
[2017-03-21] MEDS ORDERED: IV D5LR 1,000 ML IV PRN (08:15)
[2017-03-21] MEDS: FOLIC ACID/VITAMIN B COMP W-C TABLET PO SCH (08:25)
[2017-03-21] MEDS: FLUDROCORTISONE ACETATE 0.1 MG TABLET PO SCH (08:25)
[2017-03-21] MEDS: RIFAXIMIN 550 MG TABLET PO SCH ×2 (08:25→17:00)
--- NOTE | 2017-03-21 08:49 | NUR ---
Spoke to Rn and she recommended pt not stable to do any paracentesis, low bp, coded yesterday. RN will notify in status changes.
[2017-03-21] MEDS: FLUTICASONE/VILANTEROL 1 EACH BLST.W.DEV INH SCH (09:00)
[2017-03-21] MEDS: Z GUARD REMEDY PASTE 57 GM TUBE TOP SCH ×2 (09:00→20:47)
[2017-03-21 09:22] LABS: BAND % (MANUAL) 40 % (0-10); BASOPHILS % (MANUAL) 1 % (0-2); LYMPHOCYTES % (MANUAL) 2 % (20-40); METAMYELOCYTES % 11 % (0-1); MONOCYTES % (MANUAL) 6 % (2-10); MYELOCYTES % 1 % (0-0); NEUTROPHILS % (MANUAL) 39 % (42-75)
--- NOTE | 2017-03-21 09:40 | NUR ---
SPOKE WITH ,UPDATED ON PT CONDITION.BLOOD SUGAR REMAINS IN LOW 50S.NEW ORDER RECEIVED FOR D50%IV.pT REMAINS TO BE UNRESPONSIVE.NO COUGH ,GAG REFLEXES.PUPILS ARE FIXED AND DILATED.RESPIRATION REMAINS AGONAL.WILL CONTINUE TO MONITOR.
[2017-03-21] MEDS ORDERED: DEXTROSE 50% 50 ML DISP.SYRIN IV ONE (10:30)
[2017-03-21] MEDS ORDERED: GLUCAGON,HUMAN RECOMBINANT 1 MG VIAL IVP ONE (10:30)
[2017-03-21 10:47] LABS: ABG BASE EXCESS -13.3 mmol/L; ABG HCO3 16.2 mmol/L; ABG PCO2 55.8 mmHg (35.0-45.0); ABG PO2 287.3 mmHg (75.0-100.0); ABG SITE RIGHT RADIAL; ABG TOTAL HEMOGLOBIN 8.8 G/dL (13.5-18.0); MetHb 0.6 % (0.0-1.5); O2Hb 98.1 % (94.0-97.0); VENT MODE VENT - A/C; VT, ABG 550 mL
[2017-03-21] MEDS: NOREPINEPHRINE BITARTRATE 16 MG in IV DEXTROSE 5% 500 ML IV PRN (10:47)
--- NOTE | 2017-03-21 11:30 | NUR ---
PT SISTER AT BEDSIDE. AT BEDSIDE TO EXAM PT.
--- NOTE | 2017-03-21 12:00 | NUR ---
SEEN,EXAMINED BY WITH NEW ORDERS NOTED.
--- NOTE | 2017-03-21 15:30 | NUR ---
FFP IS INFUSING.NO ADVERSE REACTION NOTED.
--- NOTE | 2017-03-21 15:51 | NUR ---
PHARMACY CLINICAL NOTES ( VANCOMYCIN DOSING) S: Continue vanco for this 57 yo male dialysis patient for septic shock [facility] (on Dialysis) O: BUN/SCR 42/6.3 WBC 35.7 TEMP 97.6 Vancomycin pre-HD level 20.7 A/P: Patient was dialyzed today but Vancomycin level is over 20, no dose will be given today. Will further dose per protocol by vanco pre-HD level. Will follow HD scheduling for further dosing. Will monitor
--- NOTE | 2017-03-21 16:52 | NUR ---
PT REMAINS ON MECHANICAL VENTILATION FIO2 DECREASED POST ABG TO 50%, TOLERATING SETTINGS FAIRLY WELL. AC 30, Vt 550, +5, 50%. ETT IS PATENT AND SECURED WITH ANCHOR FAST APPROX 23CM AT THE LIP. INLINE HHN TX GIVEN WITH NO ADVERSE REACTIONS. HAS MODERATE AMOUNTS OF BLOOD TINGED, YELLOW, THICK SECRETIONS. ALARMS ARE ON AND AUDIBLE, BVM AT BEDSIDE. WILL CONTINUE TO MONITOR.
--- NOTE | 2017-03-21 17:30 | NUR ---
CALLED,SPOKE WITH PT SISTER.CODE STATUS WAS CHANGE TO DNR.
--- NOTE | 2017-03-21 19:20 | NUR ---
PT RECEIVED ON CMV WITH ETT SECURED AND AIRWAY PATENT. PT TOLERATING CURRENT VENT SETTINGS FINE. FIELD CROP FARM WORKER PERFORMED. PT RECEIVING ADEQUATE VENT VOLUMES. VENT ALARM SSET AND AUDIBLE.
--- NOTE | 2017-03-21 20:00 | NUR ---
RECEIVED PT. OBTUNDED, PUPILS FIXED & DILATED. ORALLY INTUBATED TO VENT W/ SETTINGS OF AC-30,.TV-550,FIO2-50%,, PEEP-+5, UNABLE TO READ O2 SAT PT FINGERS ARE COLD. LEVOPHED DRIP @ 15MCQ/MIN ON JANICE. D5LR @ 50CC/HR. SUCTIONED VIA ETT & ORALLY W/ MINIMAL TANNISHTHIN MUCOUS. REPOSITIONED W/ HOB ELEVATED.
[2017-03-21] MEDS: MEROPENEM 500 MG in IV NORMAL SALINE 50 ML IV SCH (20:47)
--- NOTE | 2017-03-21 21:27 | NUR ---
HS CARE DONE. ORAL CARE DONE. KEPT ON HIS BACK.
[2017-03-22] VITALS: BP 92/37
[2017-03-22 00:15] VITALS: BP 81/49
--- NOTE | 2017-03-22 00:20 | NUR ---
PT. HR -36, NO BP. C-SCOPE IDEOVENTRICULAR RHYTM. CALLED SISTER FE IF SHE WOULD LIKE TO SEE HER BROTHER,STATED SHE WONT MAKE IT & WILL CALL NURSING OFFICE DAVID. AM.
[2017-03-22 00:24] VITALS: BP 0/0
--- NOTE | 2017-03-22 00:25 | NUR ---
DR ARON TELLEZ CALLED & NOTIFIED OF .
--- NOTE | 2017-03-22 00:25 | NUR ---
PRONOUNCED BY FREDERICK ALEMAN RN
--- NOTE | 2017-03-22 00:25 | NUR ---
NURSING: PATIENT ASSESSED, PT APNIC FOR 5 MINUTES, PUPILS FIXED AND DILATED, NO AUDIBLE HEART TONES, BREATH SOUNDS FOR 1 MINUTES. NO PALPABLE PULSES FOR 1 MINUTE, NO CORNEAL REFLEXES. PATIENT PRONOUNCED @ 0024. PHYSICIAN NOTIFIED AND FAMILY NOTIFIED.
--- NOTE | 2017-03-22 00:30 | NUR ---
CALLED [facility] TO REPORT , CASE NO.[id number].
--- NOTE | 2017-03-22 00:35 | NUR ---
POST MORTEM CARE DONE.
--- NOTE | 2017-03-22 02:49 | NUR ---
PT. BODY TO ABBY.
== END 2017-03-22 04:00 | disposition expired | DRG 720 ==
LOC: ER 15:04 → TELE 16:50 → CCU 02-21 04:28 → TELE 03-14 06:50 → MED 03-15 14:00 → CCU 03-20 15:17
PROVIDERS: ADMIT Internal Medicine; ATTEND Internal Medicine
PROC: 02HV33Z Insertion of Infusion Device into Superior Vena Cava, Percutaneous Approach (ICD-10-PCS; principal; 2017-02-21)
PROC: 0W9G3ZZ Drainage of Peritoneal Cavity, Percutaneous Approach (ICD-10-PCS; principal; 2017-02-21)
PROC: 5A12012 Performance of Cardiac Output, Single, Manual (ICD-10-PCS; 2017-03-20)
PROC: 5A1945Z Respiratory Ventilation, 24-96 Consecutive Hours (ICD-10-PCS; 2017-03-20)
PROC: 0BH17EZ Insertion of Endotracheal Airway into Trachea, Via Natural or Artificial Opening (ICD-10-PCS; 2017-03-20)
PROC: 5A1D70Z Performance of Urinary Filtration, Intermittent, Less than 6 Hours Per Day (ICD-10-PCS; 2017-03-21)
PROC: 30233K1 Transfusion of Nonautologous Frozen Plasma into Peripheral Vein, Percutaneous Approach (ICD-10-PCS; 2017-03-21)
DX: A41.9 Sepsis, unspecified organism (principal); J96.21 Acute and chronic respiratory failure with hypoxia; G93.6 Cerebral edema; D65 Disseminated intravascular coagulation [defibrination syndrome]; G93.1 Anoxic brain damage, not elsewhere classified; K76.7 Hepatorenal syndrome; Z66 Do not resuscitate; Z51.5 Encounter for palliative care; J90 Pleural effusion, not elsewhere classified; J80 Acute respiratory distress syndrome; I46.9 Cardiac arrest, cause unspecified; E43 Unspecified severe protein-calorie malnutrition; J15.6 Pneumonia due to other Gram-negative bacteria; R65.21 Severe sepsis with septic shock; A04.72 Enterocolitis due to Clostridium difficile, not specified as recurrent; K76.6 Portal hypertension; D61.818 Other pancytopenia; N18.6 End stage renal disease; Z68.26 Body mass index [BMI] 26.0-26.9, adult; Z99.2 Dependence on renal dialysis; B15.9 Hepatitis A without hepatic coma; E87.6 Hypokalemia; J68.0 Bronchitis and pneumonitis due to chemicals, gases, fumes and vapors; K72.90 Hepatic failure, unspecified without coma; F10.21 Alcohol dependence, in remission; K70.31 Alcoholic cirrhosis of liver with ascites; G31.2 Degeneration of nervous system due to alcohol; F17.211 Nicotine dependence, cigarettes, in remission; D68.59 Other primary thrombophilia; Z79.899 Other long term (current) drug therapy; K40.90 Unilateral inguinal hernia, without obstruction or gangrene, not specified as recurrent; Z80.9 Family history of malignant neoplasm, unspecified; N28.1 Cyst of kidney, acquired; J44.9 Chronic obstructive pulmonary disease, unspecified; I81 Portal vein thrombosis; I48.0 Paroxysmal atrial fibrillation; J81.1 Chronic pulmonary edema; N17.9 Acute kidney failure, unspecified; E87.1 Hypo-osmolality and hyponatremia; D73.1 Hypersplenism; M19.90 Unspecified osteoarthritis, unspecified site; M47.814 Spondylosis without myelopathy or radiculopathy, thoracic region; E87.70 Fluid overload, unspecified; E87.2 Acidosis; Q78.9 Osteochondrodysplasia, unspecified; K92.1 Melena
CPT/HCPCS: 36415; 36569; 36600; 70030-TC; 71010; 76705; 76870; 82746; 82784; 83550; 83690; 83735; 84100; 84155; 84165; 84443; 85018; 85025; 85610; 85730; 86334; 86705; 86706; 86708; 86803; 86900; 86901; 87040; 87070; 87077; 87205; 87340; 90937; 93005; 93307; 94002; 94003; 94640; 94664; A4217; A4663; J0171; J0282; J0610; J0770; J0885; J1170; J1610; J2185; J2270; J2370; J2405; J2765; J3370; J3430; J3480; J3490; J3590; J7030; J7040; J7050; J7060; J7614; P9016-BL; P9017-BL; P9047; Q9967